=== PATIENT | male | born 1985 | race Caucasian/White ===

== ENCOUNTER 2019-12-22 15:57 | Emergency (ER) | payer SELFPAY ==
[2019-12-22 15:57] VITALS: BP 123/85; PULSE 84; RESP 18; TEMP 36.8; O2SAT 100
--- NOTE | 2019-12-22 16:02 | CT_ITS ---
WS: [id number] CT ABDOMEN PELVIS TECHNIQUE: Contrast-enhanced CT of the abdomen and pelvis with coronal and sagittal reformatted image s. CLINICAL INFORMATION: Abdominal Pain COMPARISON: Multiple prior CTs including 09/04/2018 and 07/31/2015 DLP: 600.[address] scans at [facility] use at least one of these dose optimization techniques: automat ed exposure control; mA and/or kV adjustment per patient size (includes targeted exams where dose is matched to clinical indication); or iterative reconstruction. FINDINGS: Mild diffuse fatty infiltration liver. Portal vein and splenic vein are patent. Normal gallbladder. P rior postoperative changes gastric variceal embolization. Lobulated spleen with splenic cleft is unch anged from multiple prior studies. Portal vein and splenic vein are patent. Pancreas appears normal. Normal renal parenchymal enhancement. No hydronephrosis. Normal caliber abdominal aorta. Normal sigmoid colon. Mild right colon and transverse colon constipation. No evidence of high-grade s mall or large bowel obstruction. No free fluid in the pelvis. Lung bases are well aerated. Notified Jessica Aguirre at 12/22/2019 4:[address]/CT abdomen pelvis w con* [id number] IMPRESSION: 1. Diffuse fatty infiltration of the liver. Normal appearing gallbladder. 2. Lobulated spleen with splenic cleft is unchanged from multiple prior examin ations. 3. Postoperative changes along the stomach from prior variceal embolization. 4. Normal renal parenchymal enhancement. No hydronephrosis. 5. Mild right colon and transverse colon fecal retention. No evidence of small or large bowel obstruction. 6. Normal caliber abdominal aorta. 7. No acute abdominal or pelvic findings
[2019-12-22] MEDS: iohexol 300 mg/mL 100 mL Btl IV (16:20)
[2019-12-22 16:29] VITALS: RESP 18; O2SAT 100
[2019-12-22 16:29] LABS: Basophils % 0.5 %; Eosinophils # 0.2 10^3/uL (0.0-0.8); Eosinophils % 2.7 %; Hematocrit 46.8 % (42.0-52.0); Hemoglobin 15.1 g/dL (11.7-16.6); Lymphocytes # 2.3 10^3/uL (0.8-4.8); Lymphocytes % 27.9 %; Mean Corpuscular HGB Conc 32.3 g/dL (30.0-36.0); Mean Corpuscular Hemoglobin 27.4 pg (28.0-34.0); Mean Corpuscular Volume 84.8 fL (80-94); Monocytes # 0.6 10^3/uL (0.2-0.9); Monocytes % 7.5 %; Neutrophils # 5.1 10^3/uL (1.8-7.7); Nucleated Red Blood Cells % 0 %; Platelet Count 261 10^3/cmm (130-400); Red Blood Count 5.52 10^6/uL (4.1-5.3); Red Cell Distribution Width 14.6 % (12.1-15.1); White Blood Count 8.3 10^3/uL (4.0-10.0)
[2019-12-22] MEDS: sodium chloride 0.9% 1,000 ML 100 ML IV (16:29)
[2019-12-22] MEDS: morphine 4 mg/mL SDV 1 mL IVP (16:29)
[2019-12-22] MEDS: ondansetron 2 mg/ML SDV 2 mL 4 MG IVP (16:30)
--- NOTE | 2019-12-22 16:45 | ED_ITS ---
Entered by Kiara Schumacher, acting as scribe for Jessica Aguirre Dec 22, 2019 15:57 HPI - Abdominal Pain General: Chief Complaint: Abdominal Pain Stated Complaint: lower abd pain Time Seen by Provider: 12/22/19 15:58 History of Present Illness: HPI narrative: Mr. Carlin is a nice 34-year-old male who comes in complaining of abdominal pain. He states the pain is been constant for the past 3 days and is located both the right and left lower quadrants. He denies any change in his bowel habits, dysuria, hematuria, or melena. He states he has not had symptoms like this in the past. 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 He denies any other fevers, back pain, chest pain, shortness of breath, generalized weakness or other complaints. Associated Symptoms: Denies chills, coffee ground emesis, constipation, GI cramping, diarrhea, dysuria, fever(s), hematuria, hematemesis, melena, nausea, syncope and vomiting Review of Systems General: Reports: other (negative unless marked) Const: Denies: fever, chills, body aches, fatigue, malaise or diaphoresis Eyes: Denies: change in vision or blurry vision ENMT: Denies: throat pain, painful swallowing, hoarseness, ear pain, ear discharge, Change in hearing or nasal discharge Card: Denies: chest pain, palpitations, irregular heart rhythm, syncope, pre- syncope, shortness of breath on exertion or shortness of breath when lying down Resp: Denies: shortness of breath, productive cough, non-productive cough, wheezing, coughing up blood or chest congestion GI: Denies: nausea, vomiting, vomiting blood, coffee grounds in vomit, diarrhea, constipation, cramping or black tarry stool : Denies: flank pain, difficulty urinating, painful urination, urinary frequency, urinary urgency, decreased urine ouput, urinary incontinence or blood in urine Musc: Denies: neck pain, back pain, extremity pain, extremity swelling, joint pain, joint swelling, joint warmth or joint stiffness Skin/Breast: Denies: rash, skin tenderness or yellow skin Neuro: Denies: headache, numbness in extremities, weakness in extremities, changes in sensation, lack of coordination, difficulty walking, dizziness, vertigo or confusion Endo: Denies: excessive thirst, tired all the time, cold intolerance, excessive sweating, flushing or hot flashes Christos/Lymph: Denies: easy bruising, easy bleeding, petechiae or enlarged lymph nodes All/Imm: Denies: hives, throat swelling, tongue swelling, facial swelling or acute wheezing PFSH ED PFSH: Social History Smoking and tobacco status: current every day smoker Physical Exam Const: COMMON NORMALS: no apparent distress, oriented x3, no limitations, healthy appearing and well nourished EXAM LIMITATIONS: no altered mental status GENERAL APPEARANCE: cooperative, well kempt and well developed ORIENTATION/CONSCIOUSNESS: Yes awake HENMT: COMMON NORMALS: normocephalic, head/scalp atraumatic, hearing grossly normal bilaterally, external ears normal, EAC's normal, external nose normal and moist oral mucous membranes HEAD & SCALP: normal to inspection, normocephalic and atraumatic FACE & SINUS: normal facial exam and face symmetric NOSE: external nose normal and nares normal EXTERNAL EAR: Yes external ears normal EXTERNAL AUDITORY CANAL: EAC's normal MOUTH: oral and palatal mucosa normal and tongue normal Eye: COMMON NORMALS: PERRL, EOMs intact bilaterally, conjunctivae normal and no scleral icterus GENERAL EYE: normal appearance of both eyes and normal light reflex CONJUNCTIVA: Yes conjunctivae normal SCLERA: sclerae normal CORNEA: Yes corneas normal PUPIL: Yes PERRL DIRECT OPHTHALMOSCOPY: Yes normal light reflex Neck/C-Spine: COMMON NORMALS: full ROM, no lymphadenopathy, supple, no meningeal signs and no JVD GENERAL: Yes normal visual inspection and Yes trachea midline CERVICAL SPINE: Yes cervical ROM normal Chest: COMMONS NORMALS: inspection of chest normal and palpation of chest normal Resp: COMMON NORMALS: normal respiratory effort, no retractions, no use of accessory muscles and clear to auscultation bilaterally EFFORT & INSPECTION: Yes able to speak in complete sentences AUSCULTATION: clear to auscultation bilaterally Cardio: COMMON NORMALS: no JVD, regular rate, regular rhythm, S1 normal heart sound, S2 normal heart sound, no gallops, no clicks, no murmurs and no rub JUGULAR VENOUS DISTENTION: no JVD RATE: regular rate RHYTHM: regular rhythm HEART SOUNDS: S1 normal and S2 normal GI: COMMON NORMALS: soft to palpation, non-tender, no hepatosplenomegaly and no masses INSPECTION: Yes normal to inspection PALPATION: Yes soft and Yes no hepatosplenomegaly : COMMON NORMALS: Yes no CVA tenderness BLADDER/KIDNEY EXAM: Yes no CVA tenderness Back/Pelvis: COMMON NORMALS: no CVA tenderness, thoracic and lumbar spine normal to inspection, no thoracic nor lumbar tenderness and thoraco-lumbar ROM normal Extremity: COMMON NORMALS: normal to inspection, full ROM, normal capillary refill, no joint enlargement, no clubbing, cyanosis or edema and no calf tenderness Neuro: COMMON NORMALS: oriented x3, CN's II-XII intact bilaterally, moves all extremities, no focal motor deficits and no sensory deficits noted MENINGEAL SIGNS: Yes no meningeal signs Psych: COMMON NORMALS: mental status grossly normal, thought process normal, cooperative, affect normal, speech normal and activity/motor behavior normal APPEARANCE: Yes well kempt SPEECH: Yes normal speech THOUGHT PROCESS: n ormal thought process Skin: COMMON NORMALS: no rashes or lesions noted, skin turgor normal, no jaundice, no petechiae and no mottling GENERAL SKIN EXAM: no rashes or lesions noted and turgor normal Course Vital Signs: Vital signs: Vital Signs Temperature 98.3 F 12/22/19 15:57 Pulse Rate 75 12/22/19 17:44 Respiratory Rate 16 12/22/19 17:44 Blood Pressure 122/79 12/22/19 17:44 Pulse Oximetry 99 12/22/19 17:44 MDM - Abdominal Pain MDM Narrative: Medical decision making narrative: Wilfrid is a 34-year-old male comes in complaining of abdominal pain. Is been present for 3 days and constant. His labs are unremarkable and CT is negative. He admits to occasional bright red blood in his stools patient refusing rectal exam or referral to a surgeon. He states the which is wants to go home if we cannot find anything wrong. I have encouraged him to return should his symptoms change or worsen and he agrees to do so. Patient has been warned and also welcome to return. Lab Data: Labs: Lab Results 12/22/19 12/22/19 12/22/19 Range/Units 16:15 16:15 17:03 WBC 8.3 (4.0-10.0) 10^3/ uL RBC 5.52 H (4.1-5.3) 10^6/u L Hgb 15.1 (11.7-16.6) g/dL Hct 46.8 (42.0-52.0) % MCV 84.8 (80-94) fL MCH 27.4 L (28.0-34.0) pg MCHC 32.3 (30.0-36.0) g/dL RDW 14.6 (12.1-15.1) % Plt Count 261 (130-400) 10^3/c mm MPV 10.0 (7.4-10.4) fL Neut % (Auto) 61.0 % Lymph % (Auto) 27.9 % [place] % (Auto) 7.5 % Eos % (Auto) 2.7 % Baso % (Auto) 0.5 % Neut # (Auto) 5.1 (1.8-7.7) 10^3/u L Lymph # (Auto) 2.3 (0.8-4.8) 10^3/u L [place] # (Auto) 0.6 (0.2-0.9) 10^3/u L Eos # (Auto) 0.2 (0.0-0.8) 10^3/u L Baso # (Auto) 0.0 (0.0-0.1) 10^3/u L Nucleated RBC % (a uto) 0 % Nucleated RBCs # 0.0 /100WBC Sodium 137 (136-145) mmol/L Potassium 4.2 (3.5-5.1) mmol/L Chloride 100 (98-107) mmol/L Carbon Dioxide 23 (22-29) mmol/L Anion Gap 18.2 (5-19) BUN 11 (6-20) mg/dL Creatinine 1.0 (0.7-1.2) mg/dL GFR Calculation 86.6 L (90-130) mL/min Glucose 91 (65-115) mg/dL Calcium 10.0 (8.5-10.5) mg/dL Total Bilirubin 0.7 (0.15-1.2) mg/dL AST 24 (0-40) U/L ALT 27 (0-41) U/L Alkaline Phosphata se 76 (40-130) IU/L Total Protein 7.8 (6.6-8.7) g/dL Albumin 4.6 (3.5-5.2) g/dL Globulin 3.2 (1.3-4.6) g/dL Lipase 16 (13-60) U/L Urine Color Dark yellow (Yellow) Urine Appearance Clear (CLEAR) Urine pH 6 (5-7) Ur Specific Gravit y 1.015 (1.005-1.030) Urine Protein 1+ H (Negative) Urine Glucose (UA) Norm (Normal) Urine Ketones 1+ H (Negative) Urine Blood Neg (Negative) Urine Nitrate Negative (Negative) Urine Bilirubin 1+ H (NEGATIVE) Urine Urobilinogen 1 H (Negative) mg/dL Ur Leukocyte Rashida ase Negative (Negative) Urine RBC Rare (0-2) /hpf Urine WBC 0-4 H (0-5) /hpf Ur Squamous Epith Cells Rare (0-5) Urine Bacteria 1+ H (NONE) Urine Mucus 3+ Imaging Data ^: CT Abd/Pel: Radiologist's impression: [place] [address] CT Scan Report Signed Patient: Wilfrid Carlin #: [id number] : 1985Acct#:[id number] Age/Sex: 34 / MADM Date: 12/22/19 Loc: ERRoom/Bed: Attending Dr: Ordering Provider/Ordering MD: Jessica Aguirre DO Date of Service: 12/22/19 Procedure(s): CT abdomen pelvis w con* [id number] Accession Number(s): [id number] Report Number: [id number] WS: [id number] CT ABDOMEN PELVIS TECHNIQUE: Contrast-enhanced CT of the abdomen and pelvis with coronal and sagittal reformatted images. CLINICAL INFORMATION: Abdominal Pain COMPARISON: Multiple prior CTs including 09/04/2018 and 07/31/2015 DLP: 600.[address] scans at [facility] use at least one of these dose optimization techniques: automated exposure control; mA and/or kV adjustment per patient size (includes targeted exams where dose is matched to clinical indication); or iterative reconstruction. FINDINGS: Mild diffuse fatty infiltration liver. Portal vein and splenic vein are patent. Normal gallbladder. Prior postoperative changes gastric variceal embolization. Lobulated spleen with splenic cleft is unchanged from multiple prior studies. Portal vein and splenic vein are patent. Pancreas appears normal. Normal renal parenchymal enhancement. No hydronephrosis. Normal caliber abdominal aorta. Normal sigmoid colon. Mild right colon and transverse colon constipation. No evidence of high-grade small or large bowel obstruction. No free fluid in the pelvis. Lung bases are well aerated. Notified Jessica Aguirre at 12/22/2019 4:[address]/CT abdomen pelvis w con* [id number] IMPRESSION: 1. Diffuse fatty infiltration of the liver. Normal appearing gallbladder. 2. Lobulated spleen with splenic cleft is unchanged from multiple prior examinations. 3. Postoperative changes along the stomach from prior variceal embolization. 4. Normal renal parenchymal enhancement. No hydronephrosis. 5. Mild right colon and transverse colon fecal retention. No evidence of small or large bowel obstruction. 6. Normal caliber abdominal aorta. 7. No acute abdominal or pelvic findings Dictated By:Lenard Greenberg MD Signed By:Lenard Greenberg MDSigned Date/Time:12/22/191651 DD/ Discharge Plan Discharge Patient Disposition: Home, Self-Care Clinical Impression: Abdominal pain Qualifiers: Abdominal location: generalized Qualified Code(s): R10.84 - Generalized abdominal pain Condition: Stable Prescriptions: No Action No Known Home Medications RF: 0 Discharge Orders: Discharge Order (Routine); Ordered 12/22/19 Ordered By: Jessica Aguirre Referrals: Miranda Infante FNP-C [Family Provider] - Discharge Diet: Advance as tolerated Discharge Activity: Increase activity as tolerated Patient Instructions: Abdominal Pain (ED) Activity Restrictions/Additional Instructions: Please return to the ER immediately for any of the signs or symptoms listed on your discharge instruction sheets, worsening/changing of your symptoms, you are not getting better as quickly as expected, or for ANY other cause or concerns. Discharge Date/Time: 12/22/19 17:46 Coding Level of Care Code ED Manager Ob for Chg Fwd Exam Comprehensive The documentation recorded by the Endy cross Valerie R, accurately reflects the service I personally performed and the decisions made by Carla toure Eli N Dec 22, 2019 15:57
[2019-12-22 16:58] LABS: Alanine Aminotransferase 27 U/L (0-41); Albumin Level 4.6 g/dL (3.5-5.2); Alkaline Phosphatase 76 IU/L (40-130); Anion Gap 18.2 (5-19); Aspartate Amino Transferase 24 U/L (0-40); Blood Urea Nitrogen 11 mg/dL (6-20); Carbon Dioxide 23 mmol/L (22-29); Chloride 100 mmol/L (98-107); Globulin 3.2 g/dL (1.3-4.6); Glomerular Filtration Rate 86.6 mL/min (90-130); Glucose 91 mg/dL (65-115); Lipase 16 U/L (13-60); Potassium 4.2 mmol/L (3.5-5.1); Sodium 137 mmol/L (136-145); Total Bilirubin 0.7 mg/dL (0.15-1.2); Total Protein 7.8 g/dL (6.6-8.7)
[2019-12-22 17:34] LABS: Bilirubin Urine 1+ (NEGATIVE); Blood Urine Neg (Negative); Glucose Urine UA Norm (Normal); Ketones Urine 1+ (Negative); Leukocyte Esterase Urine Negative (Negative); Nitrate Urine Negative (Negative); Protein Urine 1+ (Negative); RBC Urine RARE /hpf (0-2); Specific Gravity, Urine 1.015 (1.005-1.030); Squamous Epithelial Cell Urine RARE (0-5); Urine Appearance Clear (CLEAR); Urine Color Dark Yellow (Yellow); Urobilinogen Urine 1 mg/dL (Negative); WBC Urine 0-4 /hpf (0-5); pH Urine 6 (5-7)
[2019-12-22 17:35] LABS: Bacteria Urine 1+; Mucus Urine 3+
[2019-12-22] MEDS: ketorolac 30 mg/mL INJ 10 MG IVP (17:41)
[2019-12-22 17:44] VITALS: BP 122/79; PULSE 75; RESP 16; O2SAT 99
== END 2019-12-22 17:46 | disposition home or self-care (01) ==
PROVIDERS: Emergency Provider Emergency Medicine; Family Provider Nurse Practitioner Family
DX: R10.84 Generalized abdominal pain (principal); F17.210 Nicotine dependence, cigarettes, uncomplicated; K76.0 Fatty (change of) liver, not elsewhere classified
CPT/HCPCS: 12345; 74177; 80053; 81001; 83690; 85025; 96361; 96374; 96375; 99282; 99283; A9270; J1885; J2270; J2405; J7030; Q9967

== ENCOUNTER 2020-04-16 00:12 | Emergency (ER) | payer SELFPAY ==
[2020-04-16 00:13] VITALS: BP 136/81; PULSE 87; RESP 22; TEMP 37.1; O2SAT 97; BMI 23.7
--- NOTE | 2020-04-16 00:16 | ECG_ITS ---
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 Measurements Intervals [place] Rate: 61 P: 46 NC: 155 QRS: 90 QRSD: 117 T: 74 QT: 436 QTc: 439 Interpretive Statements SINUS RHYTHM WITH SINUS ARRHYTHMIA MODERATE INTRAVENTRICULAR CONDUCTION DELAY [110+ ms QRS DURATION] EARLY REPOLARIZATION [ST ELEVATION WITH NORMALLY INFLECTED T WAVE] Compared to ECG 08/05/2019 12:44:45 ST (T wave) deviation no longer present Electronically Signed On 04-16-2020 19:32:40 CDT by Star Saucedo M.D. [id number] f
--- NOTE | 2020-04-16 00:16 | XRR_ITS ---
PROCEDURE INFORMATION: Exam: XR Chest, 1 View Exam date and time: 04/16/2020 12:33 AM Age: 35 years old Clinical indication: Chest pain; Type not specified; Additional info: Cp TECHNIQUE: Imaging protocol: XR of the chest Views: 1 view. COMPARISON: CR Chest 1 [place] [id number] 08/05/2019 11:42 AM FINDINGS: Lungs: Unremarkable. No consolidation. Pleural space: Unremarkable. No pleural effusion. No pneumothorax. Heart/Mediastinum: Unremarkable. No cardiomegaly. Bones/joints: Unremarkable. XR/XR chest 1V portable [id number] IMPRESSION: No acute findings.
--- NOTE | 2020-04-16 00:17 | ED_ITS ---
HPI - Chest Pain General: Chief Complaint: Chest Pain Stated Complaint: Chest Pain Time Seen by Provider: 04/16/20 00:13 Source: patient and EMS Mode of arrival: EMS Limitations: no limitations History of Present Illness: HPI narrative: 35-year-old male who is been having chest pain he states this evening. Patient is also had episodes of vomiting is currently vomiting as well. He states the pain it went away earlier but is returned also has upper abdominal pain. States pain is sharp in nature and rates it a 6 out of 10. He has no history of heart disease. Denies any wo rsening or improving factors. MD complaint: chest pain Associated symptoms: Reports abdominal pain, nausea and vomiting; Deny dyspnea or fever(s) Review of Systems Const: Denies: fever(s), chills, body aches or change in appetite Eyes: Denies: blurry vision or eye discomfort ENMT: Denies: throat pain or dental pain Card: Reports: chest pain Resp: Denies: dyspnea GI: Reports: abdominal pain, nausea and vomiting : Denies: dysuria Musc: Denies: neck pain or back pain Skin/Breast: Denies: rash Neuro: Denies: headache(s) Psych: Denies: depression Christos/Lymph: Denies: easy bruising All/Imm: Denies: urticaria PFSH ED PFSH: Social History Smoking and tobacco status: current every day smoker Physical Exam Const: COMMON NORMALS: no acute distress, patient oriented x3 and healthy appearing HENMT: COMMON NORMALS: normocephalic and atraumatic HEAD & SCALP: normocephalic and atraumatic Eye: COMMON NORMALS: Equal, round and reactive pupils present and EOMs intact bilaterally PUPIL: Yes Equal, round and reactive pupils present Neck/C-Spine: COMMON NORMALS: full ROM and supple Chest: COMMONS NORMALS: normal inspection of the chest and normal palpation of entire chest wall Resp: COMMON NORMALS: normal respiratory effort, No retractions, No use of accessory muscles and clear to auscultation bilaterally AUSCULTATION: clear to auscultation bilaterally Cardio: COMMON NORMALS: regular rate, regular rhythm and No murmurs present (Cardio) RATE: regular rate RHYTHM: regular rhythm GI: COMMON NORMALS: Normal to inspection, nondistended, normoactive bowel sounds present, Soft to palpation, non-tender and no masses PALPATION: Yes Soft to palpation Extremity: COMMON NORMALS: normal to inspection and full ROM Neuro: COMMON NORMALS: patient oriented x3, moves all extremities and no focal motor deficits Psych: COMMON NORMALS: mental status grossly normal, Normal thought process present and cooperative THOUGHT PROCESS: Normal thought process present Skin: COMMON NORMALS: no rashes or lesions noted and no wounds GENERAL SKIN EXAM: no rashes or lesions noted Course Vital Signs: Vital signs: Vital Signs Temperature 98.0 F 04/16/20 02:22 Pulse Rate 56 L 04/16/20 02:22 Respiratory Rate 16 04/16/20 02:22 Blood Pressure 121/64 04/16/20 02:22 Pulse Oximetry 97 04/16/20 00:13 MDM - Chest Pain MDM Narrative: Medical decision making narrative: Wilfrid presents with chest pain along with vomiting. He feels much improved here in initial and repeat troponins are negative. Patient's x-ray and EKG are normal as well. He has no signs of pancreatitis or pulmonary embolism. Will prescribe him Zofran and he is stable for discharge. He is to return if worsening. He understands and agrees to plan. Lab Data: Labs: Lab Results 04/16/20 04/16/20 04/16/20 Range/Units 00:23 00:23 00:23 WBC 11.7 H (4.0-10.0) 10^3/ uL RBC 5.44 H (4.1-5.3) 10^6/u L Hgb 14.7 (11.7-16.6) g/dL Hct 46.4 (42.0-52.0) % MCV 85.3 (80-94) fL MCH 27.0 L (28.0-34.0) pg MCHC 31.7 (30.0-36.0) g/dL RDW 15.1 (12.1-15.1) % Plt Count 289 (130-400) 10^3/c mm MPV 10.0 (7.4-10.4) fL Neut % (Auto) 63.6 % Lymph % (Auto) 24.5 % [place] % (Auto) 8.3 % Eos % (Auto) 3.0 % Baso % (Auto) 0.4 % Neut # (Auto) 7.4 (1.8-7.7) 10^3/u L Lymph # (Auto) 2.9 (0.8-4.8) 10^3/u L [place] # (Auto) 1.0 H (0.2-0.9) 10^3/u L Eos # (Auto) 0.4 (0.0-0.8) 10^3/u L Baso # (Auto) 0.1 (0.0-0.1) 10^3/u L Nucleated RBC % (a uto) 0 % Nucleated RBCs # 0.0 /100WBC Sodium 143 (136-145) mmol/L Potassium 3.9 (3.5-5.1) mmol/L Chloride 106 (98-107) mmol/L Carbon Dioxide 22 (22-29) mmol/L Anion Gap 18.9 (5-19) BUN 8 (6-20) mg/dL Creatinine 1.0 (0.7-1.2) mg/dL GFR Calculation 86.1 L (90-130) mL/min Glucose 127 H (65-115) mg/dL Calculated Osmolal ity 293 (285-295) mOsm/k g Calcium 9.9 (8.5-10.5) mg/dL Total Bilirubin 0.5 (0.15-1.2) mg/dL AST 21 (0-40) U/L ALT 17 (0-41) U/L Alkaline Phosphata se 72 (40-130) IU/L Troponin T Baselin e 6 (0-15) ng/L Troponin T 120 Min [place] (0-15) ng/L Delta Troponin T (0-10) ABS# Total Protein 8.2 (6.6-8.7) g/dL Albumin 4.8 (3.5-5.2) g/dL Globulin 3.4 (1.3-4.6) g/dL Lipase 18 (13-60) U/L Urine Opiates Scre en (Negative) ng/mL Ur Barbiturates Sc reen (Negative) ng/mL Ur Amphetamines Sc reen (Negative) ng/mL U Benzodiazepines Scrn (Negative) ng/mL 04/16/20 04/16/20 Range/Units 02:03 02:11 WBC (4.0-10.0) 10^3/ uL RBC (4.1-5.3) 10^6/u L Hgb (11.7-16.6) g/dL Hct (42.0-52.0) % MCV (80-94) fL MCH (28.0-34.0) pg MCHC (30.0-36.0) g/dL RDW (12.1-15.1) % Plt Count (130-400) 10^3/c mm MPV (7.4-10.4) fL Neut % (Auto) % Lymph % (Auto) % [place] % (Auto) % Eos % (Auto) % Baso % (Auto) % Neut # (Auto) (1.8-7.7) 10^3/u L Lymph # (Auto) (0.8-4.8) 10^3/u L [place] # (Auto) (0.2-0.9) 10^3/u L Eos # (Auto) (0.0-0.8) 10^3/u L Baso # (Auto) (0.0-0.1) 10^3/u L Nucleated RBC % (a uto) % Nucleated RBCs # /100WBC Sodium (136-145) mmol/L Potassium (3.5-5.1) mmol/L Chloride (98-107) mmol/L Carbon Dioxide (22-29) mmol/L Anion Gap (5-19) BUN (6-20) mg/dL Creatinine (0.7-1.2) mg/dL GFR Calculation (90-130) mL/min Glucose (65-115) mg/dL Calculated Osmolal ity (285-295) mOsm/k g Calcium (8.5-10.5) mg/dL Total Bilirubin (0.15-1.2) mg/dL AST (0-40) U/L ALT (0-41) U/L Alkaline Phosphata se (40-130) IU/L Troponin T Baselin e (0-15) ng/L Troponin T 120 Min [place] 6.00 (0-15) ng/L Delta Troponin T 0 (0-10) ABS# Total Protein (6.6-8.7) g/dL Albumin (3.5-5.2) g/dL Globulin (1.3-4.6) g/dL Lipase (13-60) U/L Urine Opiates Scre en Negative (Negative) ng/mL Ur Barbiturates Sc reen Negative (Negative) ng/mL Ur Amphetamines Sc reen Positive H (Negative) ng/mL U Benzodiazepines Scrn Positive H (Negative) ng/mL Imaging Data^: CXR: Attestation: I personally reviewed and interpreted this imaging study as follow s: My impression: No acute abnormality EKG Data^: EKG 1: Attestation: I personally reviewed and interpreted this EKG as follows: EKG interpretation date: 04/16/20 EKG interpretation time: 01:09 Interpretation: Normal sinus rhythm heart rate [address] or T wave abnormalities early repolarization is noted QRS 117 QTc 438 Discharge Plan Discharge Patient Disposition: Home, Self-Care Clinical Impression: Chest pain Qualifiers: Chest pain type: unspecified Qualified Code(s): R07.9 - Chest pain, unspecified Vomiting Qualifiers: Vomiting type: unspecified Vomiting Intractability: non-intractable Nausea presence: with nausea Qualified Code(s): R11.2 - Nausea with vomiting, unspecified Condition: Stable Prescriptions: New ondansetron 4 mg tablet,disintegrating 4 mg PO Q6H PRN (Reason: nausea and vomiting) Qty: 14 RF: 0 Discharge Orders: Discharge Order (Routine); Ordered 04/16/20 Ordered By: Mode Ramos Referrals: Miranda Infante FNP-C [Primary Care Provider] - 1-3 days Discharge Diet: Advance as tolerated Discharge Activity: Resume usual activity Patient Instructions: Chest Pain (ED) Discharge Date/Time: 04/16/20 02:50 Coding Level of Care Code ED Bi Report Developer for Chg Fwd Exam Comprehensive
[2020-04-16 00:30] LABS: Basophils # 0.1 10^3/uL (0.0-0.1); Basophils % 0.4 %; Eosinophils # 0.4 10^3/uL (0.0-0.8); Hematocrit 46.4 % (42.0-52.0); Hemoglobin 14.7 g/dL (11.7-16.6); Lymphocytes # 2.9 10^3/uL (0.8-4.8); Lymphocytes % 24.5 %; Mean Corpuscular HGB Conc 31.7 g/dL (30.0-36.0); Mean Corpuscular Volume 85.3 fL (80-94); Monocytes % 8.3 %; Neutrophils # 7.4 10^3/uL (1.8-7.7); Neutrophils % 63.6 %; Nucleated Red Blood Cells % 0 %; Platelet Count 289 10^3/cmm (130-400); Red Blood Count 5.44 10^6/uL (4.1-5.3); Red Cell Distribution Width 15.1 % (12.1-15.1); White Blood Count 11.7 10^3/uL (4.0-10.0)
[2020-04-16] MEDS: LORazepam 2 mg/mL INJ 1 mL IVP (00:49)
[2020-04-16] MEDS: ondansetron 2 mg/ML SDV 2 mL 4 MG IVP (00:52)
[2020-04-16 00:57] VITALS: BP 124/85; PULSE 80; RESP 18; TEMP 36.3
[2020-04-16 00:58] LABS: Alanine Aminotransferase 17 U/L (0-41); Albumin Level 4.8 g/dL (3.5-5.2); Alkaline Phosphatase 72 IU/L (40-130); Anion Gap 18.9 (5-19); Aspartate Amino Transferase 21 U/L (0-40); Blood Urea Nitrogen 8 mg/dL (6-20); Calcium 9.9 mg/dL (8.5-10.5); Carbon Dioxide 22 mmol/L (22-29); Chloride 106 mmol/L (98-107); Globulin 3.4 g/dL (1.3-4.6); Glomerular Filtration Rate 86.1 mL/min (90-130); Glucose 127 mg/dL (65-115); Lipase 18 U/L (13-60); Osmolality Calculated 293 mOsm/kg (285-295); Potassium 3.9 mmol/L (3.5-5.1); Sodium 143 mmol/L (136-145); Total Bilirubin 0.5 mg/dL (0.15-1.2); Total Protein 8.2 g/dL (6.6-8.7)
[2020-04-16 00:59] LABS: Troponin(5th) Baseline 6 ng/L (0-15)
[2020-04-16] MEDS: sodium chloride 0.9% 1,000 ML 999 ML IV (01:06)
[2020-04-16 01:27] VITALS: BP 117/54; PULSE 80; RESP 16
[2020-04-16 02:22] VITALS: BP 121/64; PULSE 56; RESP 16; TEMP 36.7
[2020-04-16 02:36] LABS: Troponin 5 2HR Delta 0 ABS# (0-10)
[2020-04-16 02:45] LABS: Amphetamines Screen Urine Positive (Negative); Barbiturates Screen Urine Negative (Negative); Benzodiazepines Screen Urine Positive (Negative); Opiate Screen Urine Negative (Negative)
[2020-04-16 03:06] LABS: Cocaine Screen Urine Negative (Negative); PCP Screen Urine Negative (Negative); THC Screen Urine Positive (Negative)
== END 2020-04-16 02:50 | disposition home or self-care (01) ==
PROVIDERS: Emergency Provider Emergency Medicine; PCP Nurse Practitioner Family
DX: R07.9 Chest pain, unspecified (principal); R11.2 Nausea with vomiting, unspecified; F17.210 Nicotine dependence, cigarettes, uncomplicated
CPT/HCPCS: 12345; 36415; 71045; 80053; 80306; 83690; 84484; 85025; 93005; 96361; 96374; 96375; 99283; 99284; J2060; J2405; J7030

== ENCOUNTER 2020-11-08 09:10 | Emergency (ER) | payer SELFPAY ==
[2020-11-08 09:11] VITALS: BP 160/111; PULSE 83; RESP 16; TEMP 36.5; O2SAT 99; BMI 21.1
--- NOTE | 2020-11-08 09:28 | CT_ITS ---
WS: [id number] CT ABDOMEN AND PELVIS WITH CONTRAST HISTORY: Abdominal pain TECHNIQUE: Imaging performed of the abdomen and pelvis with IV contrast. Single phase imaging of the abdomen. Coronal and sagittal reformats are submitted. All CT scans at [facility] use at least one of these dose optimization techniques: automated exposure control; mA and/or kV adjustment per patient size (includes targeted exams where dose is matched to clinical indication); or iterativ e reconstruction. IV CONTRAST: Omnipaque 300; 95 mL IV. Oral contrast: No DLP: 361.92 mGy.cm COMPARISON: 12/22/2019 Lower thorax: Lung bases are clear. Heart is normal size. No hiatal hernia. Liver/biliary system: Normal size liver. Hepatic steatosis along the falciform ligament. No bile duct dilatation. Gallbladder: Normal. No gallstones or wall thickening. No pericholecystic fluid. Pancreas: Pancreas is poorly visualized. Very little fat within the mesentery. No definite evidence f or pancreatitis by CT. Spleen: Again noted is a splenic cleft. No interval change in appearance of the spleen. Adrenal glands: Normal. Right kidney: Normal. Left kidney: Normal. Aorta: Normal. Postsurgical clips are noted within the LEFT upper abdomen. May be from prior embolization. Lymphadenopathy: None. Free fluid: None. GI tract: Moderate constipation. No obstruction. The appendix is not directly visualized. No secondar y findings of appendicitis. Abdominal wall: Unremarkable abdominal wall. No hernia. Pelvis: Normal. Bones: Unremarkable. CT/CT abdomen pelvis w con* [id number] IMPRESSION: 1. Diffuse constipation. 2. No ascites. No acute abdominal process identified.
--- NOTE | 2020-11-08 09:28 | ECG_ITS ---
[facility] Test Date: 2020-11-08 Pat Name: Wilfrid Carlin Department: Room: Gender: Male Chief Of Party: : 1985 Requested By: Jn Rivera Order Number: [id number] Adalgisa MD: Prasad Brock M.D. Measurements Intervals [place] Rate: 67 P: 36 ID: 140 QRS: 96 QRSD: 122 T: 75 QT: 417 QTc: 443 Interpretive Statements SINUS RHYTHM BORDERLINE RIGHT AXIS DEVIATION [QRS AXIS > 90] MODERATE INTRAVENTRICULAR CONDUCTION DELAY [110+ ms QRS DURATION] Compared to ECG 04/16/2020 01:09:45 Sinus arrhythmia no longer present Early repolarization no longer present Electronically Signed On 11-08-2020 19:11:40 GREASE MAKER by Prasad Brock M.D. [id number]
--- NOTE | 2020-11-08 09:28 | XR_ITS ---
WS: [id number] Portable AP upright chest, 11/08/2020 Clinical Data: dyspnea/cough Comparison: Portable chest, 04/16/2020. Findings: No nodules, masses or effusions are seen. The heart is normal. The pulmonary vascularity is not increased. No pneumonia or pneumothorax is seen. The patient is had surgery in the left upper qu adrant. XR/XR chest 1V portable [id number] Impression: Negative chest.
[2020-11-08 09:30] VITALS: O2SAT 99
--- NOTE | 2020-11-08 09:34 | W.ED.ABDPA2 ---
HPI - Abdominal Pain General: Chief Complaint: Abdominal Pain Stated Complaint: LOWER ABD PAIN, VOMITING Time Seen by Provider: 11/08/20 09:15 History of Present Illness: HPI narrative: 35 yo mle present with abd pain that started 4 days anne-marie. he has had some vomitting. EMS reports 4 episodes of bilous vomitting enroute. Pt ws given fentanyl and promethezine enroute and is moderately sedated. Patient denies any fever sweats or chills denies any dysuria urgency or frequency. Denies hematochezia melena hematemesis or coffee-ground emesis. MD elicited complaint: abdominal pain Pertinent past history: constipation Onset (ago): day(s) (3-4) Pain Consistency: constant Location: Diffuse Severity: moderate Quality: cramping Radiation: none Migration to: no migration Exacerbating factors: nothing Relieving factors: nothing Associated Symptoms: Reports constipation, GI cramping, nausea, poor appetite and vomiting; Denies change in bowel habits, change in stool character, chills, coffee ground emesis, diarrhea, dyspepsia, dysuria, excessive flatus, fever(s), heartburn, hematochezia, hematuria, hematemesis, fecal incontinence, loose stools, melena and syncope Review of Systems Const: Denies: fever(s) or chills ENMT: Denies: throat pain, ear or mastoid pain, nasal discharge or nasal congestion Card: Denies: syncope Resp: Denies: dyspnea, productive cough or non-productive cough GI: Reports: nausea, vomiting, constipation and GI cramping; Denies: hematemesis, coffee ground emesis, heartburn, diarrhea, excessive flatus, fecal incontinence, change in bowel habits, change in stool character, hematochezia or melena : Denies: dysuria or hematuria Skin/Breast: Denies: rash or pruritus PFSH ED PFSH: Social History Smoking and tobacco status: current every day smoker Physical Exam Const: COMMON NORMALS: no acute distress GENERAL APPEARANCE: cooperative and comfortable ORIENTATION/CONSCIOUSNESS: Yes awake, Yes oriented to person, Yes oriented to place and Yes oriented to time HENMT: COMMON NORMALS: normocephalic, atraumatic and hearing grossly normal bilaterally HEAD & SCALP: normocephalic and atraumatic Neck/C-Spine: COMMON NORMALS: no JVD Resp: COMMON NORMALS: normal respiratory effort, No retractions, No use of accessory muscles and clear to auscultation bilaterally AUSCULTATION: clear to auscultation bilaterally Cardio: COMMON NORMALS: no JVD, regular rate, regular rhythm and No murmurs present (Cardio) RATE: regular rate RHYTHM: regular rhythm GI: COMMON NORMALS: No hepatosplenomegaly present AUSCULTATION: Yes normoactive bowel sounds PALPATION: Yes Tenderness to palpation present (GI) (Diffuse), No Guarding due to palpation present (GI) and Yes No hepatosplenomegaly present Extremity: COMMON NORMALS: normal to inspection, capillary refill normal, no clubbing, cyanosis or edema, no calf tenderness and no pedal edema Neuro: SENSORIUM/ORIENTATION: Yes oriented to person, Yes oriented to place and Yes oriented to time Skin: COMMON NORMALS: no rashes or lesions noted GENERAL SKIN EXAM: no rashes or lesions noted Course Vital Signs: Vital signs: Vital Signs Temperature 97.7 F 11/08/20 09:11 Pulse Rate 84 11/08/20 11:23 Respiratory Rate 16 11/08/20 09:11 Blood Pressure 151/110 11/08/20 11:23 Pulse Oximetry 98 11/08/20 11:23 MDM - Abdominal Pain MDM Narrative: Medical decision making narrative: Patient difficult to assess. When he first came in he was extremely sedated from the fentanyl and promethazine received in route. He did not answer many questions and went back to the room a couple of x2 discussed with him. Each time myself or the nurse went to the room we had to awaken him. When awakened he would complain of increased pain asking for more pain medications. Work-up is unremarkable other than very slight elevation in white count and a slight elevation in BUN. Patient is given fluids. He denies chronic use review Lab Data: Labs: Lab Results 11/08/20 11/08/20 11/08/20 Range/Units 09:49 09:49 09:49 WBC 13.2 H (4.0-10.0) 10^3/ uL RBC 5.83 H (4.1-5.3) 10^6/u L Hgb 16.1 (11.7-16.6) g/dL Hct 48.6 (42.0-52.0) % MCV 83.4 (80-94) fL MCH 27.6 L (28.0-34.0) pg MCHC 33.1 (30.0-36.0) g/dL RDW 14.0 (12.1-15.1) % Plt Count 329 (130-400) 10^3/c mm MPV 9.4 (7.4-10.4) fL Neut % (Auto) 75.9 % Lymph % (Auto) 14.7 % [place] % (Auto) 8.6 % Eos % (Auto) 0.2 % Baso % (Auto) 0.4 % Neut # (Auto) 10.03 H (1.8-7.7) 10^3/u L Lymph # (Auto) 1.9 (0.8-4.8) 10^3/u L [place] # (Auto) 1.1 H (0.2-0.9) 10^3/u L Eos # (Auto) 0.0 (0.0-0.8) 10^3/u L Baso # (Auto) 0.1 (0.0-0.1) 10^3/u L Nucleated RBC % (a uto) 0 % Nucleated RBCs # 0.0 /100WBC Specimen Type Sample Site ABG pH (7.35-7.45) ABG pCO2 (35-45) mmHg ABG pO2 (80.0-100.0) mmH g ABG HCO3 (22-26) mmol/L ABG O2 Saturation ABG Base Excess (-2.0-2.0) mmol/ L Fam Test A-a O2 Gradient (5-10) mmHg Hematocrit (42-52) % Hgb O2 Saturation (95-100) % Carboxyhemoglobin (0.4-20.1) %THgb Methemoglobin (0.4-1.5) % Total Hemoglobin (14-18) g/dL Ionized Calcium (1.1-1.4) mmol/L O2 Delivery Device Heater Planer Operator ID Sodium 138 (136-145) mmol/L Potassium 3.6 (3.5-5.1) mmol/L Chloride 100 (98-107) mmol/L Carbon Dioxide 26 (22-29) mmol/L Anion Gap 15.6 (5-19) BUN 22 H (6-20) mg/dL Creatinine 1.3 H (0.7-1.2) mg/dL GFR Calculation 63.6 L (90-130) mL/min Glucose 125 H (65-115) mg/dL Calculated Osmolal ity 291 (285-295) mOsm/k g Lactic Acid 1.7 (0.5-2.2) mmol/L Calcium 8.8 (8.5-10.5) mg/dL Total Bilirubin 0.7 (0.15-1.2) mg/dL AST 16 (0-40) U/L ALT 15 (0-41) U/L Alkaline Phosphata se 75 (40-130) IU/L Creatine Kinase 181 (39-308) U/L Total Protein 7.6 (6.6-8.7) g/dL Albumin 4.5 (3.5-5.2) g/dL Globulin 3.1 (1.3-4.6) g/dL Lipase 13 (13-60) U/L Urine Color (Yellow) Urine Appearance (CLEAR) Urine pH (5-7) Ur Specific Gravit y (1.005-1.030) Urine Protein (Negative) Urine Glucose (UA) (Normal) Urine Ketones (Negative) Urine Blood (Negative) Urine Nitrate (Negative) Urine Bilirubin (Negative) Urine Urobilinogen (Negative) mg/dL Ur Leukocyte Rashida ase (Negative) Urine RBC (0-2) /hpf Urine WBC (0-5) /hpf Ur Squamous Epith Cells (0-5) /hpf Amorphous Sediment Urine Bacteria (NONE) /hpf Hyaline Casts /lpf 11/08/20 11/08/20 Range/Units 09:57 12:14 WBC (4.0-10.0) 10^3/ uL RBC (4.1-5.3) 10^6/u L Hgb (11.7-16.6) g/dL Hct (42.0-52.0) % MCV (80-94) fL MCH (28.0-34.0) pg MCHC (30.0-36.0) g/dL RDW (12.1-15.1) % Plt Count (130-400) 10^3/c mm MPV (7.4-10.4) fL Neut % (Auto) % Lymph % (Auto) % [place] % (Auto) % Eos % (Auto) % Baso % (Auto) % Neut # (Auto) (1.8-7.7) 10^3/u L Lymph # (Auto) (0.8-4.8) 10^3/u L [place] # (Auto) (0.2-0.9) 10^3/u L Eos # (Auto) (0.0-0.8) 10^3/u L Baso # (Auto) (0.0-0.1) 10^3/u L Nucleated RBC % (a uto) % Nucleated RBCs # /100WBC Specimen Type Arterial Sample Site Radial, right ABG pH 7.41 (7.35-7.45) ABG pCO2 41.7 (35-45) mmHg ABG pO2 93.7 (80.0-100.0) mmH g ABG HCO3 26.3 H (22-26) mmol/L ABG O2 Saturation 97.5 ABG Base Excess 1.4 (-2.0-2.0) mmol/ L Fam Test Pos A-a O2 Gradient 0.6 L (5-10) mmHg Hematocrit 53.9 H (42-52) % Hgb O2 Saturation 94.9 L (95-100) % Carboxyhemoglobin 2.2 (0.4-20.1) %THgb Methemoglobin 0.5 (0.4-1.5) % Total Hemoglobin 17.6 (14-18) g/dL Ionized Calcium 1.2 (1.1-1.4) mmol/L O2 Delivery Device Room air Heater Planer Operator ID [id number] Sodium 138.0 (136-145) mmol/L Potassium 3.7 (3.5-5.1) mmol/L Chloride (98-107) mmol/L Carbon Dioxide (22-29) mmol/L Anion Gap (5-19) BUN (6-20) mg/dL Creatinine (0.7-1.2) mg/dL GFR Calculation (90-130) mL/min Glucose 127.0 H (65-115) mg/dL Calculated Osmolal ity (285-295) mOsm/k g Lactic Acid (0.5-2.2) mmol/L Calcium (8.5-10.5) mg/dL Total Bilirubin (0.15-1.2) mg/dL AST (0-40) U/L ALT (0-41) U/L Alkaline Phosphata se (40-130) IU/L Creatine Kinase (39-308) U/L Total Protein (6.6-8.7) g/dL Albumin (3.5-5.2) g/dL Globulin (1.3-4.6) g/dL Lipase (13-60) U/L Urine Color Yellow (Yellow) Urine Appearance Clear (CLEAR) Urine pH 5 (5-7) Ur Specific Gravit y 1.015 (1.005-1.030) Urine Protein 1+ H (Negative) Urine Glucose (UA) Norm (Normal) Urine Ketones Negative (Negative) Urine Blood Neg (Negative) Urine Nitrate Negative (Negative) Urine Bilirubin 1+ H (Negative) Urine Urobilinogen 1 H (Negative) mg/dL Ur Leukocyte Rashida ase Negative (Negative) Urine RBC None (0-2) /hpf Urine WBC 0-4 H (0-5) /hpf Ur Squamous Epith Cells 0-4 H (0-5) /hpf Amorphous Sediment Not Reportable Urine Bacteria Trace (NONE) /hpf Hyaline Casts 5-10 H /lpf Discharge Plan Discharge Patient Disposition: Home Clinical Impression: Constipation Condition: Stable Prescriptions: New magnesium citrate Solution 148 ml PO BID PRN (Reason: constipation) Qty: 296 RF: 0 ondansetron HCl [Zofran] 4 mg tablet 4 mg PO Q6H PRN (Reason: nausea and vomiting) Qty: 20 RF: 0 Discharge Orders: Discharge ED (Routine); Ordered 11/08/20 Ordered By: Jn Horan Discharge Diet: Clear Liquid Discharge Activity: Increase activity as tolerated Activity Restrictions/Additional Instructions: Clear liquid diet for 24 to 48 hours. Magnesium citrate to relieve the constipation ondansetron as needed for nausea. Coding Level of Care Code ED Pattern Puncher for Rafiq Montes
[2020-11-08 09:52] VITALS: BP 146/105; PULSE 83; O2SAT 98
[2020-11-08 09:55] LABS: Basophils # 0.1 10^3/uL (0.0-0.1); Basophils % 0.4 %; Eosinophils % 0.2 %; Hematocrit 48.6 % (42.0-52.0); Hemoglobin 16.1 g/dL (11.7-16.6); Lymphocytes # 1.9 10^3/uL (0.8-4.8); Lymphocytes % 14.7 %; Mean Corpuscular HGB Conc 33.1 g/dL (30.0-36.0); Mean Corpuscular Hemoglobin 27.6 pg (28.0-34.0); Mean Corpuscular Volume 83.4 fL (80-94); Mean Platelet Volume 9.4 fL (7.4-10.4); Monocytes # 1.1 10^3/uL (0.2-0.9); Monocytes % 8.6 %; Neutrophils # 10.03 10^3/uL (1.8-7.7); Neutrophils % 75.9 %; Nucleated Red Blood Cells % 0 %; Platelet Count 329 10^3/cmm (130-400); Red Blood Count 5.83 10^6/uL (4.1-5.3); White Blood Count 13.2 10^3/uL (4.0-10.0)
[2020-11-08 10:03] LABS: ABG PCO2 41.7 mmHg (35-45); ABG PH Result 7.41 (7.35-7.45); Alveolar-Arterial Oxygen Gradi 0.6 mmHg (5-10); Arterial Blood Gas Hematocrit 53.9 % (42-52); Base Excess ABG 1.4 mmol/L (-2.0-2.0); Blood Gas Allen Test Pos; Blood Gas Sample Site Radial, right; Blood Gas Sample Type Arterial; Carboxyhemoglobin 2.2 %THgb (0.4-20.1); HCO3 ABG 26.3 mmol/L (22-26); HGB O2 Sat 94.9 % (95-100); Ionized Calcium Level - ABG 1.2 mmol/L (1.1-1.4); Methemoglobin 0.5 % (0.4-1.5); Oxygen Device ROOM AIR; Oxygen Saturation ABG 97.5; PO2 ABG 93.7 mmHg (80.0-100.0); Potassium Level - ABG 3.7 mmol/L (3.5-5.0); Total Hemoglobin 17.6 g/dL (14-18)
[2020-11-08 10:17] LABS: Alanine Aminotransferase 15 U/L (0-41); Albumin Level 4.5 g/dL (3.5-5.2); Alkaline Phosphatase 75 IU/L (40-130); Anion Gap 15.6 (5-19); Aspartate Amino Transferase 16 U/L (0-40); Blood Urea Nitrogen 22 mg/dL (6-20); Calcium 8.8 mg/dL (8.5-10.5); Carbon Dioxide 26 mmol/L (22-29); Chloride 100 mmol/L (98-107); Creatine Phosphokinase 181 U/L (39-308); Globulin 3.1 g/dL (1.3-4.6); Glomerular Filtration Rate 63.6 mL/min (90-130); Glucose 125 mg/dL (65-115); Lipase 13 U/L (13-60); Osmolality Calculated 291 mOsm/kg (285-295); Potassium 3.6 mmol/L (3.5-5.1); Sodium 138 mmol/L (136-145); Total Bilirubin 0.7 mg/dL (0.15-1.2); Total Protein 7.6 g/dL (6.6-8.7)
[2020-11-08] MEDS: iohexol 300 mg/mL 100 mL Btl IV (10:18)
[2020-11-08 10:19] LABS: Lactic Sepsis W/Reflex 1.7 mmol/L (0.5-2.2)
[2020-11-08] MEDS: sodium chloride 0.9% 1,000 ML 999 ML IV ×2 (11:22→13:12)
[2020-11-08] MEDS: ondansetron 2 mg/ML SDV 2 mL 4 MG IVP (11:22)
[2020-11-08 11:23] VITALS: BP 151/110; PULSE 84; O2SAT 98
[2020-11-08 12:24] LABS: Add Urine Microscopic? YES; Bilirubin Urine 1+ (Negative); Blood Urine Neg (Negative); Glucose Urine UA Norm (Normal); Ketones Urine Negative (Negative); Leukocyte Esterase Urine Negative (Negative); Nitrate Urine Negative (Negative); Protein Urine 1+ (Negative); Specific Gravity, Urine 1.015 (1.005-1.030); Urine Appearance Clear (CLEAR); Urine Color Yellow (Yellow); Urobilinogen Urine 1 mg/dL (Negative); pH Urine 5 (5-7)
[2020-11-08 12:44] LABS: Bacteria Urine TRACE /hpf; Squamous Epithelial Cell Urine 0-4 /hpf (0-5); WBC Urine 0-4 /hpf (0-5)
[2020-11-08 12:45] LABS: Add Urine Culture? No
[2020-11-08] MEDS: haloperidol inj 5 mg/mL INJ 1 mL IM (13:12)
[2020-11-08 13:13] VITALS: BP 135/98; PULSE 74; O2SAT 99
[2020-11-08 13:50] VITALS: BP 154/87; PULSE 81; O2SAT 100
== END 2020-11-08 13:50 | disposition home or self-care (01) ==
PROVIDERS: Emergency Provider Family Medicine
DX: K59.00 Constipation, unspecified (principal); F17.210 Nicotine dependence, cigarettes, uncomplicated
CPT/HCPCS: 12345; 36415; 36600; 71045; 74177; 80051; 80053; 81001; 82330; 82550; 82805; 83605; 83690; 85025; 93005; 96365; 96366; 96372; 96375; 99283; 99284; J1630; J2405; J7030; Q9967

== ENCOUNTER 2021-08-31 08:01 | Emergency (ER) | payer SELFPAY ==
[2021-08-31 08:17] VITALS: BP 141/93; PULSE 74; RESP 15; O2SAT 98; BMI 22.5
--- NOTE | 2021-08-31 08:23 | W.ED.GENADLT ---
HPI - General Adult General: Chief complaint: General Medical Stated complaint: DEHYDRATED/N,V/BLOODY STOOL/CP Time Seen by Provider: 08/31/21 08:04 History of Present Illness: HPI narrative: Patient is a 36-year-old male comes to the ED with weakness, nausea and vomiting. Symptoms have been going on for approximately 1 week. He has had episodes similar to this in the past and no doctors been able to figure out what is going on. For the past week he has not been able to keep any food or fluids down. Says he has had some periumbilical/epigastric pain, but here in the ED he does not have any abdominal pain. He states he feels dehydrated and weak. He endorses having some diarrhea with some red blood noted, especially when he wipes. He admits to having a history of hemorrhoids and has had this small amount of red blood during bowel movements before. Patient also endorses having a history of acid reflux and he was taking famotidine daily to treat that. He recently just got off the famotidine approximately a couple weeks ago. Associated symptoms: Reports nausea and vomiting; Deny chest pain, dyspnea, headache(s), rash or palpitations Review of Systems Const: Reports: fatigue (Generalized weakness); Denies: fever(s) or chills Eyes: Denies: change in vision or eye discomfort ENMT: Denies: throat pain, odynophagia, nasal discharge or nasal congestion Card: Denies: chest pain, palpitations, edema, swelling of feet/ankles, dyspnea on exertion or orthopnea Resp: Denies: dyspnea, productive cough or non-productive cough GI: Reports: nausea, vomiting, heartburn and diarrhea; Denies: abdominal pain, constipation or hematochezia : Denies: flank pain, difficulty urinating, dysuria or hematuria Musc: Denies: neck pain, back pain or extremity swelling Skin/Breast: Denies: rash or new lesions Neuro: Denies: headache(s), numbness in extremities or weakness in extremities PFS ED PFSH: Social History Smoking and tobacco status: current every day smoker Alcohol intake: current Physical Exam Const: COMMON NORMALS: patient oriented x3 and alert GENERAL APPEARANCE: cooperative, comfortable and lethargic (Patient appears a little lethargic/sleepy) ORIENTATION/CONSCIOUSNESS: Yes lethargic (Patient appears a little lethargic/sleepy) HENMT: COMMON NORMALS: normocephalic HEAD & SCALP: normocephalic MOUTH: moist mucous membranes abnormal Details: parched THROAT: posterior oropharynx normal and uvula midline Eye: COMMON NORMALS: Equal, round and reactive pupils present PUPIL: Yes Equal, round and reactive pupils present Neck/C-Spine: COMMON NORMALS: supple GENERAL: Yes normal visual inspection Resp: COMMON NORMALS: normal respiratory effort, No retractions, No use of accessory muscles and clear to auscultation bilaterally AUSCULTATION: clear to auscultation bilaterally Cardio: COMMON NORMALS: regular rate, regular rhythm, S1 normal heart sound present, S2 normal heart sound present, No gallops present (Cardio), No clicks present (Cardio), No murmurs present (Cardio) and Peripheral pulses 2+ throughout RATE: regular rate RHYTHM: regular rhythm HEART SOUNDS: S1 normal heart sound present and S2 normal heart sound present PERIPHERAL PULSES: Peripheral pulses 2+ throughout GI: COMMON NORMALS: Normal to inspection, nondistended, normoactive bowel sounds present, Soft to palpation and no masses PALPATION: Yes Soft to palpation and Yes Tenderness to palpation present (GI) Details: other (Periumbilical and epigastric region tenderness.) : COMMON NORMALS: Yes no CVA tenderness BLADDER/KIDNEY EXAM: Yes no CVA tenderness Back/Pelvis: COMMON NORMALS: no CVA tenderness Extremity: COMMON NORMALS: normal to inspection Neuro: COMMON NORMALS: patient oriented x3 and moves all extremities SENSORIUM/ORIENTATION: Yes alert and Yes lethargic (Patient appears a little lethargic/sleepy) Skin: GENERAL SKIN EXAM: dry skin Course Vital Signs: Vital signs: Vital Signs Pulse Rate 77 08/31/21 08:38 Respiratory Rate 14 08/31/21 12:57 Blood Pressure 141/93 08/31/21 08:38 Pulse Oximetry 98 08/31/21 08:38 MDM - General Adult MDM Narrative: Medical decision making narrative: Patient is a 36-year-old male comes to the ED with acute nausea and vomiting and abdominal pain. Abdominal pain is located in the periumbilical and epigastric region. Here in the ED is abdominal pain is mild and he says he has been having acute nausea and vomiting for the past week. He has been unable to keep any food or fluids down. Vitals are stable. During exam he has some periumbilical and epigastric tenderness along with dry oral mucous membranes. Labs were unremarkable. CT of abdomen pelvis showed no acute findings, but noted moderate amount of stool. Patient was given 2 L of IV fluids, Zofran and some IV pain meds and GI cocktail to help with symptoms. His symptoms improved and he was able to tolerate p.o. fluids. Patient was diagnosed with dehydration and acid reflux disease. He was discharged home with a prescription for Reglan, pantoprazole and hydrocodone 5/325 mg 8 tablets to help with pain. He was instructed to start with a clear liquid diet and then to advance diet as tolerated. Patient was wanting to be referred to a PCP so he can get established with a primary. Put a referral in with case management for patient to be set up with the PCP. Return ED precautions given. I told patient foster care case manager will contact them in the next couple days to set up an appoint with PCP. Patient understood agree with plan. Lab Data: Attestation: I reviewed the patient's lab results. Labs: Lab Results 08/31/21 08/31/21 08/31/21 08:34 09:43 09:43 WBC 11.9 10^3/uL H 10 ^3/uL (4.0-10.0) RBC 5.83 10^6/uL H 10 ^6/uL (4.1-5.3) Hgb 15.4 g/dL g/dL (11.7-16.6) Hct 48.2 % % (42.0-52.0) MCV 82.7 fl fl (80-94) MCH 26.4 pg L pg (28.0-34.0) MCHC 32.0 g/dL g/dL (30.0-36.0) RDW 15.2 % H % (12.1-15.1) Plt Count 293 10^3/cmm 10^3 /cmm (130-400) MPV 9.9 fL fL (7.4-10.4) Neut % (Auto) 75.4 % % Lymph % (Auto) 14.8 % % [place] % (Auto) 7.8 % % Eos % (Auto) 1.2 % % Baso % (Auto) 0.5 % % Neut # (Auto) 8.99 10^3/uL H 10 ^3/uL (1.8-7.7) Lymph # (Auto) 1.8 10^3/uL 10^3/ uL (0.8-4.8) [place] # (Auto) 0.9 10^3/uL 10^3/ uL (0.2-0.9) Eos # (Auto) 0.1 10^3/uL 10^3/ uL (0.0-0.8) Baso # (Auto) 0.1 10^3/uL 10^3/ uL (0.0-0.1) Nucleated RBC % (a uto) 0 % % Nucleated RBCs # 0.0 /100WBC /100W BC Sodium Cancelled Potassium Cancelled Chloride Cancelled Carbon Dioxide Cancelled Anion Gap Cancelled BUN Cancelled Creatinine Cancelled GFR Calculation Cancelled Glucose Cancelled Calculated Osmolal ity Cancelled Lactic Acid 0.8 mmol/L mmol/L (0.5-2.2) Calcium Cancelled Total Bilirubin Cancelled AST Cancelled ALT Cancelled Alkaline Phosphata se Cancelled Total Protein Cancelled Albumin Cancelled Globulin Cancelled Lipase Cancelled 08/31/21 09:43 WBC RBC Hgb Hct MCV MCH MCHC RDW Plt Count MPV Neut % (Auto) Lymph % (Auto) [place] % (Auto) Eos % (Auto) Baso % (Auto) Neut # (Auto) Lymph # (Auto) [place] # (Auto) Eos # (Auto) Baso # (Auto) Nucleated RBC % (a uto) Nucleated RBCs # Sodium 142 mmol/L mmol/L (136-145) Potassium 4.3 mmol/L mmol/L (3.5-5.1) Chloride 105 mmol/L mmol/L (98-107) Carbon Dioxide 25 mmol/L mmol/L (22-29) Anion Gap 16.3 (5-19) BUN 14 mg/dL mg/dL (6-20) Creatinine 0.8 mg/dL mg/dL (0.7-1.2) GFR Calculation 110.7 mL/min mL/m in (90-130) Glucose 101 mg/dL mg/dL (65-115) Calculated Osmolal ity 295 mOsm/kg mOsm/ kg (285-295) Lactic Acid Calcium 10.4 mg/dL mg/dL (8.5-10.5) Total Bilirubin 0.7 mg/dL mg/dL (0.15-1.2) AST 17 U/L U/L (0-40) ALT 11 U/L U/L (0-41) Alkaline Phosphata se 71 IU/L IU/L (40-130) Total Protein 7.8 g/dL g/dL (6.6-8.7) Albumin 4.8 g/dL g/dL (3.5-5.2) Globulin 3.0 g/dL g/dL (1.3-4.6) Lipase 17 U/L U/L (13-60) Imaging Data^: CT Abd/Pel: Attestation: I personally reviewed and interpreted this imaging study as follows: Radiologist's impression: [employer] [address] [address] [address] Scan Report Signed Patient: Wilfrid Carlin Unit #: [id number] : 1985 Age/Sex: 36 / M ADM Date: 08/31/21 Loc: ER Room/Bed: Attending Dr: Ordering Provider/Ordering MD: Caden Rouse Date of Service: 08/31/21 Procedure(s): CT abdomen pelvis w con* [id number] Accession Number(s): [id number] Report Number: [id number] PROCEDURE INFORMATION: Exam: CT Abdomen And Pelvis With Contrast Exam date and time: 08/31/2021 8:48 AM Age: 36 years old Clinical indication: Abdominal pain; Generalized; Prior surgery; Surgery date: 6+ months; Surgery type: Gastric/vascular; Additional info: Periumbilical and epigastric tenderness, n/v TECHNIQUE: Imaging protocol: Computed tomography of the abdomen and pelvis with contrast. Total images: 220 Radiation optimization: All CT scans at this facility use at least one of these dose optimization techniques: automated exposure control; mA and/or kV adjustment per patient size (includes targeted exams where dose is matched to clinical indication); or iterative reconstruction. Contrast material: OMNIPAQUE 300; Contrast volume: 95 ml; Contrast route: INTRAVENOUS (IV); COMPARISON: CT abdomen pelvis w con* [id number] 11/08/2020 10:07 AM RADIATION DOSE METRICS: Total DLP (mGy-cm): 1109.2 FINDINGS: Liver: Normal. No mass. Gallbladder and bile ducts: Normal. No calcified stones. No ductal dilation. Pancreas: Normal. No ductal dilation. Spleen: Normal. No splenomegaly. Adrenal glands: Normal. No mass. Kidneys and ureters: Normal. No hydronephrosis. Stomach and bowel: Postsurgical changes noted adjacent to the stomach unchanged from prior exam. Moderate stool burden. Appendix: No evidence of appendicitis. Intraperitoneal space: Unremarkable. No free air. No significant fluid collection. Vasculature: Unremarkable. No abdominal aortic aneurysm. Lymph nodes: Unremarkable. No enlarged lymph nodes. Urinary bladder: Unremarkable as visualized. Reproductive: Unremarkable as visualized. Bones/joints: Unremarkable. No acute fracture. Soft tissues: Unremarkable. CT/CT abdomen pelvis w con* [id number] IMPRESSION: 1. Moderate stool burden. 2. No acute process identified. Radiation Dose CTDIVOL = (mGy): DLP = 1109.2 (mGy-cm) Dictated By: Bishop De La O MD Signed By: Bishop De La O MD Signed Date/Time: 08/31/21 1020 DD/ 0848 EKG Data^: EKG 1: Attestation: I personally reviewed and interpreted this EKG as follows: EKG interpretation date: 08/31/21 Interpretation: Normal sinus rhythm, 67 bpm, no ST segment elevation or depression seen. Computer generated interpretation: Abdomen/Pelvis CT 08/31/21 08:48 IMPRESSION: 1. Moderate stool burden. 2. No acute process identified. Radiation Dose CTDIVOL = (mGy): DLP = 1109.2 (mGy-cm) Discharge Plan Discharge Patient Disposition: Home Clinical Impression: Dehydration determined by examination Acid reflux disease Qualifiers: Esophagitis presence: esophagitis presence not specified Qualified Code(s): K21.9 - Gastro-esophageal reflux disease without esophagitis Condition: Stable Prescriptions: New pantoprazole 40 mg tablet,delayed release (DR/EC) 40 mg PO DAILY 28 Days Qty: 30 RF: 0 Reglan 10 mg tablet 10 mg PO Q6H PRN (Reason: nausea and vomiting) Qty: 30 RF: 0 No Action triamcinolone acetonide 0.1 % cream 1 applic topical BID 14 Days Qty: 30 RF: 0 Discharge Orders: Discharge ED (Routine); Ordered 08/31/21 Ordered By: Caden Rouse Discharge Diet: Advance as tolerated and Clear Liquid Patient Instructions: Dehydration (ED), Clear Liquid Diet (ED), GERD (Gastroesophageal Reflux Disease) (DC), Opioid Safety Activity Restrictions/Additional Instructions: Follow-up with medical provider as directed. Case management will be contacting you in the next several days set up an appointment with her primary care provider. Start with a clear liquid diet for the next 24 to 48 hours then advance diet as tolerated. Take medications as prescribed. Return to the ER or your medical provider if condition worsens. Please read and understand discharge instructions. Thank you for choosing [facility] for your healthcare needs today. Please realize this is an emergency room and that we are providing you with a medical screening exam and this may not be complete and all inclusive of all the testing and or work up that you may need to determine your ailment or severity of your illness. It is very important that you follow up as instructed or that you return to the Emergency Department should you have concerns or if your condition changes or worsens in any way. Coding Level of Care Code ED Environmental Science Program Director for Jefferyg Fwd Exam Comprehensive
[2021-08-31 08:38] VITALS: BP 141/93; PULSE 77; RESP 14; O2SAT 98
--- NOTE | 2021-08-31 08:41 | ECG_ITS ---
[facility] Test Date: 2021-08-31 Pat Name: Wilfrid Carlin Department: Room: Gender: Male Metallurgical Tester: : 1985 Requested By: Caden Rouse Order Number: [id number] Diana MD: Theresa Storm M.D. Measurements Intervals Harvey Rate: 67 P: 11 DC: 142 QRS: 107 QRSD: 109 T: 68 QT: 404 QTc: 427 Interpretive Statements SINUS RHYTHM RIGHT AXIS DEVIATION [QRS AXIS > 100] Compared to ECG 11/08/2020 09:46:04 Intraventricular conduction delay no longer present Electronically Signed On 08-31-2021 13:12:26 HYDRAULIC MINER BLASTING by Theresa Storm M.D. [id number]
--- NOTE | 2021-08-31 08:48 | CTR_ITS ---
PROCEDURE INFORMATION: Exam: CT Abdomen And Pelvis With Contrast Exam date and time: 08/31/2021 8:48 AM Age: 36 years old Clinical indication: Abdominal pain; Generalized; Prior surgery; Surgery date: 6+ months; Surgery type: Gastric/vascular; Additional info: Periumbilical and epigastric tenderness, n/v TECHNIQUE: Imaging protocol: Computed tomography of the abdomen and pelvis with contrast. Total images: 220 Radiation optimization: All CT scans at this facility use at least one of these dose optimization techniques: automated exposure control; mA and/or kV adjustment per patient size (includes targeted exams where dose is matched to clinical indication); or iterative reconstruction. Contrast material: OMNIPAQUE 300; Contrast volume: 95 ml; Contrast route: INTRAVENOUS (IV); COMPARISON: CT abdomen pelvis w con* [id number] 11/08/2020 10:07 AM RADIATION DOSE METRICS: Total DLP (mGy-cm): 1109.2 FINDINGS: Liver: Normal. No mass. Gallbladder and bile ducts: Normal. No calcified stones. No ductal dilation. Pancreas: Normal. No ductal dilation. Spleen: Normal. No splenomegaly. Adrenal glands: Normal. No mass. Kidneys and ureters: Normal. No hydronephrosis. Stomach and bowel: Postsurgical changes noted adjacent to the stomach unchanged from prior exam. Moderate stool burden. Appendix: No evidence of appendicitis. Intraperitoneal space: Unremarkable. No free air. No significant fluid collection. Vasculature: Unremarkable. No abdominal aortic aneurysm. Lymph nodes: Unremarkable. No enlarged lymph nodes. Urinary bladder: Unremarkable as visualized. Reproductive: Unremarkable as visualized. Bones/joints: Unremarkable. No acute fracture. Soft tissues: Unremarkable. CT/CT abdomen pelvis w con* [id number] IMPRESSION: 1. Moderate stool burden. 2. No acute process identified. Radiation Dose CTDIVOL = (mGy): DLP = 1109.2 (mGy-cm)
[2021-08-31] MEDS: ondansetron 2 mg/ML SDV 2 mL 4 MG IVP (09:34)
[2021-08-31] MEDS: sodium chloride 0.9% 1,000 ML 999 ML IV ×2 (09:34→11:28)
[2021-08-31 09:50] LABS: Basophils # 0.1 10^3/uL (0.0-0.1); Basophils % 0.5 %; Eosinophils # 0.1 10^3/uL (0.0-0.8); Eosinophils % 1.2 %; Hematocrit 48.2 % (42.0-52.0); Hemoglobin 15.4 g/dL (11.7-16.6); Lymphocytes # 1.8 10^3/uL (0.8-4.8); Lymphocytes % 14.8 %; Mean Corpuscular Hemoglobin 26.4 pg (28.0-34.0); Mean Corpuscular Volume 82.7 fl (80-94); Mean Platelet Volume 9.9 fL (7.4-10.4); Monocytes # 0.9 10^3/uL (0.2-0.9); Monocytes % 7.8 %; Neutrophils # 8.99 10^3/uL (1.8-7.7); Neutrophils % 75.4 %; Nucleated Red Blood Cells % 0 %; Platelet Count 293 10^3/cmm (130-400); Red Blood Count 5.83 10^6/uL (4.1-5.3); Red Cell Distribution Width 15.2 % (12.1-15.1); White Blood Count 11.9 10^3/uL (4.0-10.0)
[2021-08-31] MEDS: iodixanol 320 mg/mL 100mL Btl IV (10:02)
[2021-08-31 10:12] LABS: Lactic Sepsis W/Reflex 0.8 mmol/L (0.5-2.2)
[2021-08-31 10:13] LABS: Alanine Aminotransferase 11 U/L (0-41); Albumin Level 4.8 g/dL (3.5-5.2); Alkaline Phosphatase 71 IU/L (40-130); Anion Gap 16.3 (5-19); Aspartate Amino Transferase 17 U/L (0-40); Blood Urea Nitrogen 14 mg/dL (6-20); Calcium 10.4 mg/dL (8.5-10.5); Carbon Dioxide 25 mmol/L (22-29); Chloride 105 mmol/L (98-107); Glomerular Filtration Rate 110.7 mL/min (90-130); Glucose 101 mg/dL (65-115); Lipase 17 U/L (13-60); Osmolality Calculated 295 mOsm/kg (285-295); Potassium 4.3 mmol/L (3.5-5.1); Sodium 142 mmol/L (136-145); Total Bilirubin 0.7 mg/dL (0.15-1.2); Total Protein 7.8 g/dL (6.6-8.7)
[2021-08-31 11:27] VITALS: RESP 14
[2021-08-31] MEDS: morphine 4 mg/mL SDV 1 mL IVP (11:27)
[2021-08-31] MEDS: lidocaine 2% viscous 15 ML, aluminum-mag hydrox-simethicon 30 ML, sucralfate oral liq 1 GM PO (11:28)
[2021-08-31 12:57] VITALS: RESP 14
[2021-08-31] MEDS: HYDROmorphone 1 mg/mL INJ 1 mL IVP (12:57)
--- NOTE | 2021-09-01 12:32 | DCPLANNER ---
farm field manager had message to speak with patient about getting established with a primary care physician. farm field manager spoke with patient, he stated that he would like help in getting established with a primary care physician. farm field manager called [facility], spoke with Abigail, gave clinic patients information. A follow up appointment was scheduled for , September 04, 2021 at 4:[address] Gomes. farm field manager called patient and gave patient the appointment information.
--- NOTE | 2021-11-09 16:23 | DCPLANNER ---
Patient had a follow up appointment scheduled with [facility] - patient did attend appointment.
== END 2021-08-31 13:04 | disposition home or self-care (01) ==
PROVIDERS: Emergency Provider Physician Assistant
DX: K21.9 Gastro-esophageal reflux disease without esophagitis (principal); E86.0 Dehydration; F17.210 Nicotine dependence, cigarettes, uncomplicated
CPT/HCPCS: 36415; 74177; 80053; 83605; 83690; 85025; 87040; 87077; 87186; 87205; 93005; 96361; 96374; 96375; 99283; J1170; J2270; J2405; J7030; Q9967

== ENCOUNTER 2021-10-10 02:13 | Emergency (ER) | payer SELFPAY ==
[2021-10-10 02:16] VITALS: BP 139/92; PULSE 68; RESP 24; O2SAT 98; BMI 23.6
[2021-10-10 02:17] VITALS: BP 143/99; PULSE 76; RESP 24; O2SAT 100
--- NOTE | 2021-10-10 02:17 | CTR_ITS ---
PROCEDURE INFORMATION: Exam: CT Abdomen And Pelvis With Contrast Exam date and time: 10/10/2021 2:17 AM Age: 36 years old Clinical indication: Nausea and vomiting; Abdominal pain; Generalized; Prior surgery; Surgery type: Gastric; Patient HX: Diffuse abd pain with n/v. TECHNIQUE: Imaging protocol: Computed tomography of the abdomen and pelvis with contrast. Radiation optimization: All CT scans at this facility use at least one of these dose optimization techniques: automated exposure control; mA and/or kV adjustment per patient size (includes targeted exams where dose is matched to clinical indication); or iterative reconstruction. Contrast material: OMNI 300; Contrast volume: 95 ml; Contrast route: INTRAVENOUS (IV); COMPARISON: CT abdomen pelvis w con* [id number] 08/31/2021 9:59 AM RADIATION DOSE METRICS: Total DLP (mGy-cm): 1028.03 FINDINGS: Liver: Normal. No mass. Gallbladder and bile ducts: Normal. No calcified stones. No ductal dilation. Pancreas: Normal. No ductal dilation. Spleen: Normal. No splenomegaly. Adrenal glands: Normal. No mass. Kidneys and ureters: Normal. No hydronephrosis. Stomach and bowel: Status post gastric surgery. Appendix: The appendix is visualized and is normal in configuration. Intraperitoneal space: Unremarkable. No free air. No significant fluid collection. Vasculature: Unremarkable. No abdominal aortic aneurysm. Lymph nodes: Unremarkable. No enlarged lymph nodes. Urinary bladder: Unremarkable as visualized. Reproductive: Unremarkable as visualized. Bones/joints: Unremarkable. No acute fracture. Soft tissues: Unremarkable. CT/CT abdomen pelvis w con* [id number] IMPRESSION: There are no acute abdominal findings.
--- NOTE | 2021-10-10 02:19 | W.ED.ABDPA2 ---
HPI - Abdominal Pain General: Chief Complaint: Abdominal Pain Stated Complaint: abd pain Time Seen by Provider: 10/10/21 02:14 Source: patient Mode of arrival: ambulatory Limitations: no limitations History of Present Illness: HPI narrative: 36-year-old male states he been having diffuse abdominal pain all day he states pain is severe in nature. He states it just hurts all over and he rates his pain a 10 out of 10 denies any worsening or improving factors denies any vomiting or diarrhea patient is in distress here. Denies any radiation of his pain denies any chest pain. Associated Symptoms: Denies chills, dysuria and fever(s) Review of Systems Const: Denies: fever(s), chills, body aches or change in appetite Eyes: Denies: blurry vision or eye discomfort ENMT: Denies: throat pain or dental pain Card: Denies: chest pain Resp: Denies: dyspnea GI: Reports: abdominal pain : Denies: dysuria Musc: Denies: neck pain or back pain Skin/Breast: Denies: rash Neuro: Denies: headache(s) Psych: Denies: depression Christos/Lymph: Denies: easy bruising All/Imm: Denies: urticaria PFSH ED PFSH: Social History Smoking and tobacco status: current every day smoker Alcohol intake: current Alcohol intake frequency: few times a week Physical Exam Const: COMMON NORMALS: no acute distress, patient oriented x3 and healthy appearing HENMT: COMMON NORMALS: normocephalic and atraumatic HEAD & SCALP: normocephalic and atraumatic Eye: COMMON NORMALS: Equal, round and reactive pupils present and EOMs intact bilaterally PUPIL: Yes Equal, round and reactive pupils present Neck/C-Spine: COMMON NORMALS: full ROM and supple Chest: COMMONS NORMALS: normal inspection of the chest and normal palpation of entire chest wall Resp: COMMON NORMALS: normal respiratory effort, No retractions, No use of accessory muscles and clear to auscultation bilaterally AUSCULTATION: clear to auscultation bilaterally Cardio: COMMON NORMALS: regular rate, regular rhythm and No murmurs present (Cardio) RATE: regular rate RHYTHM: regular rhythm GI: COMMON NORMALS: Normal to inspection, nondistended, normoactive bowel sounds present, Soft to palpation and no masses PALPATION: Yes Soft to palpation and Yes Tenderness to palpation present (GI) (diffuse) Extremity: COMMON NORMALS: normal to inspection and full ROM Neuro: COMMON NORMALS: patient oriented x3, moves all extremities and no focal motor deficits Psych: COMMON NORMALS: mental status grossly normal, Normal thought process present and cooperative THOUGHT PROCESS: Normal thought process present Skin: COMMON NORMALS: no rashes or lesions noted and no wounds GENERAL SKIN EXAM: no rashes or lesions noted Course Vital Signs: Vital signs: Vital Signs Pulse Rate 76 10/10/21 02:17 Respiratory Rate 26 H 10/10/21 02:40 Blood Pressure 148/99 10/10/21 04:15 Pulse Oximetry 100 10/10/21 02:40 MDM - Abdominal Pain MDM Narrative: Medical decision making narrative: Patient presents with abdominal pain is since resolved patient's abdominal CT blood work here is all normal. Exam at discharge is benign he stable for discharge is to follow-up with PCP and return if worsening. Lab Data: Labs: Lab Results 10/10/21 10/10/21 10/10/21 02:18 02:18 02:18 WBC 12.2 10^3/uL H 10 ^3/uL (4.0-10.0) RBC 5.68 10^6/uL H 10 ^6/uL (4.1-5.3) Hgb 14.7 g/dL g/dL (11.7-16.6) Hct 46.3 % % (42.0-52.0) MCV 81.5 fl fl (80-94) MCH 25.9 pg L pg (28.0-34.0) MCHC 31.7 g/dL g/dL (30.0-36.0) RDW 15.2 % H % (12.1-15.1) Plt Count 313 10^3/cmm 10^3 /cmm (130-400) MPV 10.1 fL fL (7.4-10.4) Neut % (Auto) 67.9 % % Lymph % (Auto) 21.2 % % Cherry % (Auto) 8.1 % % Eos % (Auto) 1.9 % % Baso % (Auto) 0.7 % % Neut # (Auto) 8.27 10^3/uL H 10 ^3/uL (1.8-7.7) Lymph # (Auto) 2.6 10^3/uL 10^3/ uL (0.8-4.8) Cherry # (Auto) 1.0 10^3/uL H 10^ 3/uL (0.2-0.9) Eos # (Auto) 0.2 10^3/uL 10^3/ uL (0.0-0.8) Baso # (Auto) 0.1 10^3/uL 10^3/ uL (0.0-0.1) Nucleated RBC % (a uto) 0 % % Nucleated RBCs # 0.0 /100WBC /100W BC Sodium 142 mmol/L mmol/L (136-145) Potassium 4.3 mmol/L mmol/L (3.5-5.1) Chloride 104 mmol/L mmol/L (98-107) Carbon Dioxide 18 mmol/L L mmol/ L (22-29) Anion Gap 24.3 H (5-19) BUN 8 mg/dL mg/dL (6-20) Creatinine 0.9 mg/dL mg/dL (0.7-1.2) GFR Calculation 96.6 mL/min mL/mi n (90-130) Glucose 114 mg/dL mg/dL (65-115) Calculated Osmolal ity 293 mOsm/kg mOsm/ kg (285-295) Lactate 2.5 mmol/L H mmol /L (0.5-2.2) Calcium 8.8 mg/dL mg/dL (8.5-10.5) Total Bilirubin 0.6 mg/dL mg/dL (0.15-1.2) AST 21 U/L U/L (0-40) ALT 9 U/L U/L (0-41) Alkaline Phosphata se 68 IU/L IU/L (40-130) Total Protein 7.7 g/dL g/dL (6.6-8.7) Albumin 4.8 g/dL g/dL (3.5-5.2) Globulin 2.9 g/dL g/dL (1.3-4.6) Lipase 19 U/L U/L (13-60) Urine Color Urine Appearance Urine pH Ur Specific Gravit y Urine Protein Urine Glucose (UA) Urine Ketones Urine Blood Urine Nitrate Urine Bilirubin Urine Urobilinogen Ur Leukocyte Rashida ase Urine RBC Urine WBC Ur Squamous Epith Cells Amorphous Sediment Urine Bacteria Fine Granular Cast s Urine Mucus 10/10/21 03:05 WBC RBC Hgb Hct MCV MCH MCHC RDW Plt Count MPV Neut % (Auto) Lymph % (Auto) Cherry % (Auto) Eos % (Auto) Baso % (Auto) Neut # (Auto) Lymph # (Auto) Cherry # (Auto) Eos # (Auto) Baso # (Auto) Nucleated RBC % (a uto) Nucleated RBCs # Sodium Potassium Chloride Carbon Dioxide Anion Gap BUN Creatinine GFR Calculation Glucose Calculated Osmolal ity Lactate Calcium Total Bilirubin AST ALT Alkaline Phosphata se Total Protein Albumin Globulin Lipase Urine Color Yellow (Yellow) Urine Appearance Clear (CLEAR) Urine pH 5 (5-7) Ur Specific Gravit y 1.015 (1.005-1.030) Urine Protein 1+ H (Negative) Urine Glucose (UA) Norm (Normal) Urine Ketones Negative (Negative) Urine Blood Trace H (Negative) Urine Nitrate Negative (Negative) Urine Bilirubin Neg (Negative) Urine Urobilinogen 1 mg/dL H mg/dL (Negative) Ur Leukocyte Rashida ase Negative (Negative) Urine RBC Rare /hpf /hpf (0-2) Urine WBC 0-4 /hpf H /hpf (0-5) Ur Squamous Epith Cells 0-4 /hpf H /hpf (0-5) Amorphous Sediment Not Reportable Urine Bacteria None /hpf /hpf (NONE) Fine Granular Cast s 0-4 /lpf H /lpf Urine Mucus 2+ /hpf /hpf Imaging Data ^: CT Abd/Pel: Attestation: I personally reviewed and interpreted this imaging study as follows: Radiologist's impression: [address] [address] [address] Scan Report Signed Patient: Wilfrid Carlin Unit #: [id number] : 1985 Age/Sex: 36 / M ADM Date: 10/10/21 Loc: ER Room/Bed: Attending Dr: Ordering Provider/Ordering MD: Mode Ramos MD Date of Service: 10/10/21 Procedure(s): CT abdomen pelvis w con* [id number] Accession Number(s): [id number] Report Number: [id number] PROCEDURE INFORMATION: Exam: CT Abdomen And Pelvis With Contrast Exam date and time: 10/10/2021 2:17 AM Age: 36 years old Clinical indication: Nausea and vomiting; Abdominal pain; Generalized; Prior surgery; Surgery type: Gastric; Patient HX: Diffuse abd pain with n/v. TECHNIQUE: Imaging protocol: Computed tomography of the abdomen and pelvis with contrast. Radiation optimization: All CT scans at this facility use at least one of these dose optimization techniques: automated exposure control; mA and/or kV adjustment per patient size (includes targeted exams where dose is matched to clinical indication); or iterative reconstruction. Contrast material: OMNI 300; Contrast volume: 95 ml; Contrast route: INTRAVENOUS (IV); COMPARISON: CT abdomen pelvis w con* [id number] 08/31/2021 9:59 AM RADIATION DOSE METRICS: Total DLP (mGy-cm): 1028.03 FINDINGS: Liver: Normal. No mass. Gallbladder and bile ducts: Normal. No calcified stones. No ductal dilation. Pancreas: Normal. No ductal dilation. Spleen: Normal. No splenomegaly. Adrenal glands: Normal. No mass. Kidneys and ureters: Normal. No hydronephrosis. Stomach and bowel: Status post gastric surgery. Appendix: The appendix is visualized and is normal in configuration. Intraperitoneal space: Unremarkable. No free air. No significant fluid collection. Vasculature: Unremarkable. No abdominal aortic aneurysm. Lymph nodes: Unremarkable. No enlarged lymph nodes. Urinary bladder: Unremarkable as visualized. Reproductive: Unremarkable as visualized. Bones/joints: Unremarkable. No acute fracture. Soft tissues: Unremarkable. CT/CT abdomen pelvis w con* [id number] IMPRESSION: There are no acute abdominal findings. Dictated By: Ricardo Pan MD Signed By: Ricardo Pan MD Signed Date/Time: 10/10/21322 DD/ 6 Discharge Plan Discharge Patient Disposition: Home Clinical Impression: Abdominal pain Qualifiers: Abdominal location: epigastric Qualified Code(s): R10.13 - Epigastric pain Condition: Stable Prescriptions: New Protonix 40 mg tablet,delayed release (DR/EC) 40 mg PO DAILY Qty: 60 RF: 0 No Action Reglan 10 mg tablet 10 mg PO Q6H PRN (Reason: nausea and vomiting) Qty: 30 RF: 0 Discharge Orders: Discharge ED (Routine); Ordered 10/10/21 Ordered By: Mode Ramos Referrals: Bishop Naqvi, [Primary Care Provider] - 1-3 days Discharge Diet: Advance as tolerated Discharge Activity: Resume usual activity Patient Instructions: Abdominal Pain (ED) Coding Level of Care Code ED Training Development Manager for Chg Fwd Exam Comprehensive
[2021-10-10 02:38] LABS: Basophils # 0.1 10^3/uL (0.0-0.1); Basophils % 0.7 %; Eosinophils # 0.2 10^3/uL (0.0-0.8); Eosinophils % 1.9 %; Hematocrit 46.3 % (42.0-52.0); Hemoglobin 14.7 g/dL (11.7-16.6); Lymphocytes # 2.6 10^3/uL (0.8-4.8); Lymphocytes % 21.2 %; Mean Corpuscular HGB Conc 31.7 g/dL (30.0-36.0); Mean Corpuscular Hemoglobin 25.9 pg (28.0-34.0); Mean Corpuscular Volume 81.5 fl (80-94); Mean Platelet Volume 10.1 fL (7.4-10.4); Monocytes % 8.1 %; Neutrophils # 8.27 10^3/uL (1.8-7.7); Neutrophils % 67.9 %; Nucleated Red Blood Cells % 0 %; Platelet Count 313 10^3/cmm (130-400); Red Blood Count 5.68 10^6/uL (4.1-5.3); Red Cell Distribution Width 15.2 % (12.1-15.1); White Blood Count 12.2 10^3/uL (4.0-10.0)
[2021-10-10] MEDS: sodium chloride 0.9% 1,000 ML 999 ML IV ×2 (02:39→03:16)
[2021-10-10] MEDS: iohexol 300 mg/mL 100 mL Btl IV (02:39)
[2021-10-10 02:40] VITALS: RESP 26; O2SAT 100
[2021-10-10] MEDS: HYDROmorphone 1 mg/mL INJ 1 mL IVP (02:40)
[2021-10-10] MEDS: diphenhydrAMINE 50 mg/mL SDV 1mL IVP (02:40)
[2021-10-10] MEDS: metoclopramide 5 mg/mL SDV 2 mL 10 MG IVP (02:40)
[2021-10-10 02:59] LABS: Alanine Aminotransferase 9 U/L (0-41); Albumin Level 4.8 g/dL (3.5-5.2); Alkaline Phosphatase 68 IU/L (40-130); Blood Urea Nitrogen 8 mg/dL (6-20); Calcium 8.8 mg/dL (8.5-10.5); Carbon Dioxide 18 mmol/L (22-29); Chloride 104 mmol/L (98-107); Globulin 2.9 g/dL (1.3-4.6); Glomerular Filtration Rate 96.6 mL/min (90-130); Glucose 114 mg/dL (65-115); Lipase 19 U/L (13-60); Osmolality Calculated 293 mOsm/kg (285-295); Sodium 142 mmol/L (136-145); Total Bilirubin 0.6 mg/dL (0.15-1.2); Total Protein 7.7 g/dL (6.6-8.7)
[2021-10-10 03:00] LABS: Lactate (Lactic Acid level) 2.5 mmol/L (0.5-2.2)
[2021-10-10 03:10] LABS: Anion Gap 24.3 (5-19); Aspartate Amino Transferase 21 U/L (0-40); Potassium 4.3 mmol/L (3.5-5.1)
[2021-10-10 03:20] VITALS: BP 142/99
[2021-10-10 03:36] LABS: Urine Appearance Clear (CLEAR); Urine Color Yellow (Yellow)
[2021-10-10 03:37] LABS: Bilirubin Urine Neg (Negative); Blood Urine Trace (Negative); Glucose Urine UA Norm (Normal); Ketones Urine Negative (Negative); Leukocyte Esterase Urine Negative (Negative); Nitrate Urine Negative (Negative); Protein Urine 1+ (Negative); Specific Gravity, Urine 1.015 (1.005-1.030); Urobilinogen Urine 1 mg/dL (Negative); pH Urine 5 (5-7)
[2021-10-10 03:38] LABS: Add Urine Culture? No; Add Urine Microscopic? YES; Fine Granular Casts Urine 0-4 /lpf; Mucus Urine 2+ /hpf; RBC Urine RARE /hpf (0-2); Squamous Epithelial Cell Urine 0-4 /hpf (0-5); WBC Urine 0-4 /hpf (0-5)
[2021-10-10 04:15] VITALS: BP 148/99
== END 2021-10-10 04:00 | disposition home or self-care (01) ==
PROVIDERS: Emergency Provider Emergency Medicine; PCP Family Medicine
DX: R10.13 Epigastric pain (principal); F17.210 Nicotine dependence, cigarettes, uncomplicated
CPT/HCPCS: 74177; 80053; 81001; 83605; 83690; 85025; 96361; 96374; 96375; 99284; J1170; J1200; J2765; J7030; Q9967

== ENCOUNTER → 2021-11-11 16:19 | Outpatient (BNVA) | payer OTHER, SELFPAY | PROVIDERS: PCP Family Medicine; Visit Provider Family Medicine | DX: Z20.822 Contact with and (suspected) exposure to COVID-19 (principal) | CPT/HCPCS: 87635 ==

== ENCOUNTER 2022-04-08 06:00 | Day surgery (SDC) | payer SELFPAY ==
[2022-04-08 06:24] VITALS: BP 118/74; PULSE 62; RESP 16; TEMP 36.6; O2SAT 97
[2022-04-08] MEDS: sodium chloride 0.9% 1,000 ML 30 ML IV (06:37)
--- NOTE | 2022-04-08 07:01 | P.ANESASSM_ITS ---
Documented by User: Merrill Reece Jr, COMBAT RIFLE CREWMEMBER 04/08/22 07:04 Pre-Anesthetic Assessment Height/Weight: Height 1.91 m Weight 81.647 kg Temp Pulse Resp BP Pulse Ox 97.9 F 62 16 118/74 97 04/08/22 06:24 04/08/22 06:24 04/08/22 06:24 04/08/22 06:24 04/08/22 06:24 Preop Diagnosis: upper gi symptoms Operation Date: 04/08/22 07:30 Proposed Procedures p EGD 92224/k21.9(Not Applicable) - Wero Alas MD Familial anesthetic complications: none Was Beta Carlyle taken within 24 hours: N/A Was Clonidine taken within 24 hours: N/A Last intake: Intake Last Liquid Date 04/07/22 Last Liquid Time 21:00 Last Solid Date 04/07/22 Last Solid Time 21:00 Last Intake: 21:00 Social Tobacco and No alcohol 1ppd pack(s) per day 10+ pack years Exam alert, oriented x 3, clear to auscultation bilaterally and regular rate & rhythm Airway Submandibular: within normal limits Cervical ROM: within normal limits Mallampati: Class II Dentition: full Pulmonary None reported CV/HEM None reported None reported Hepatic None reported GI Gastroesophageal Reflux Disease Metabolic None reported Musc/skel None reported Neuropsych Anxiety and Depression Anesthetic Plan ASA status: 1 Anesthesia: MAC Medications/Allergies Home Medications Medication Instructions Recorded Confirmed Last Taken Type sucralfate 1 gram tablet (Carafate) 1 g PO BID PRN #60 tab 01/06/22 04/08/22 04/07/22 Rx pantoprazole 40 mg tablet,delayed 40 mg PO BID 30 Days #60 tab 02/09/22 04/08/22 04/07/22 Rx release (Protonix) Allergies Allergy/AdvReac Type Severity Reaction Status Date / Time No Known Allergies Allergy Verified 02/17/22 14:17 Current Medications Generic Name Dose Route Start Last Admin Trade Name Freq PRN Reason Stop Dose Admin Sodium Chloride 1,000 mls @ 30 mls/hr 04/08/22 06:15 04/08/22 06:37 Sodium Chloride 0.9% IV 04/09/22 06:14 30 mls/hr .Q24H LEDA Administration PFSH Anesthesia Surgical History History of colonoscopy 15 years History of esophagogastroduodenoscopy S/P gastric surgery patient not sure of details but for bleeding - done laparoscopic Social History Smoking and tobacco status: current every day smoker cigarettes Packs smoked per day: 0.5 Alcohol intake: current Alcohol intake frequency: few times a week Data Anesthesia Cardiac Studies: No Data to Display
--- NOTE | 2022-04-08 07:28 | W.PM.OPSFHP ---
Same Day Surgery H&P Indication for Procedure/HPI DATE OF PROCEDURE: April 08, 2022 CHIEF COMPLAINT/INDICATIONFOR SURGICAL PROCEDURE: egd PREOP DIAGNOSIS: upper gi symptoms PLANNED PROCEDURE: Operation Date: 04/08/22 07:30 Proposed Procedures p EGD 11129/k21.9(Not Applicable) - Wero Alas MD Medications/Allergies* Allergies/Adverse Reactions Allergy/AdvReac Type Severity Reaction Status Date / Time No Known Allergies Allergy Verified 02/17/22 14:17 Current Medications: Generic Name Dose Route Start Last Admin Trade Name Freq PRN Reason Stop Dose Admin Sodium Chloride 1,000 mls @ 30 mls/hr 04/08/22 06:15 04/08/22 06:37 Sodium Chloride 0.9% IV 04/09/22 06:14 30 mls/hr .Q24H LEDA Administration Pertinent History/Comorbid Conditions* Surgical History (Updated 02/17/22 @ 14:28 by Wero Alas MD) History of colonoscopy 15 years History of esophagogastroduodenoscopy S/P gastric surgery patient not sure of details but for bleeding - done laparoscopic Social History Smoking and tobacco status: current every day smoker cigarettes Packs smoked per day: 0.5 Alcohol intake: current Alcohol intake frequency: few times a week Pertinent Exam Findings alert, oriented x 3 and regular rate & rhythm Recommendations Surgery/Procedure today Coding Level of Care Code Acute Property Disposal Manager for Chg Simon
[2022-04-08 07:44] VITALS: BP 99/63; PULSE 57; RESP 16; TEMP 36.6; O2SAT 98
[2022-04-08 07:58] VITALS: BP 100/62; PULSE 53; RESP 16; O2SAT 99
--- NOTE | 2022-04-08 12:39 | ANE.PACU2 ---
Inpatient post-anesthesia follow up: Airway intact: Yes Vital signs: Temperature 97.8 F Pulse Rate 53 Respiratory Rate 16 Blood Pressure 100/62 Pulse Oximetry 99 Oxygen Delivery Me thod Room Air Oxygen Flow Rate Fraction of Inspir ed Oxygen Hydration adequate: Yes Nausea and vomiting: No Pain level: 1 Mental status: Baseline
== END 2022-04-08 08:15 | disposition home or self-care (01) ==
PROVIDERS: PCP Family Medicine; Visit Provider Surgery
PROC: 0DJ08ZZ Inspection of Upper Intestinal Tract, Via Natural or Artificial Opening Endoscopic (ICD-10-PCS; CPT 43235; principal; 2022-04-08 07:30)
DX: K21.9 Gastro-esophageal reflux disease without esophagitis (principal); K29.50 Unspecified chronic gastritis without bleeding; B96.81 Helicobacter pylori [H. pylori] as the cause of diseases classified elsewhere; F17.210 Nicotine dependence, cigarettes, uncomplicated; F41.9 Anxiety disorder, unspecified; F32.9 Major depressive disorder, single episode, unspecified
CPT/HCPCS: 43239; 88305; J2704; J7030

== ENCOUNTER 2022-04-19 01:52 | Emergency (ER) | payer SELFPAY ==
--- NOTE | 2022-04-19 01:55 | XRR_ITS ---
PROCEDURE INFORMATION: Exam: XR Chest Exam date and time: 04/19/2022 2:48 AM Age: 37 years old Clinical indication: Pain; Angina pectoris; Additional info: Cp TECHNIQUE: Imaging protocol: Radiologic exam of the chest. Views: 1 view. COMPARISON: CR XR chest 1V portable [id number] 11/08/2020 9:30 AM FINDINGS: Lungs: The lung parenchyma is clear. Pleural spaces: No pneumothorax. No pleural effusion. Heart/Mediastinum: The cardiomediastinal silhouette is within normal limits. Bones/joints: Unremarkable. XR/XR chest 1V portable [id number] IMPRESSION: No acute cardiopulmonary abnormality.
--- NOTE | 2022-04-19 01:56 | ECG_ITS ---
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 Measurements Intervals [place] Rate: 67 P: 66 [place]: 134 QRS: 91 QRSD: 113 T: 84 QT: 418 QTc: 444 Interpretive Statements SINUS RHYTHM BORDERLINE RIGHT AXIS DEVIATION [QRS AXIS > 90] MODERATE INTRAVENTRICULAR CONDUCTION DELAY [110+ ms QRS DURATION] Compared to ECG 08/31/2021 09:14:58 Intraventricular conduction delay now present Electronically Signed On 04-19-2022 8:37:38 CDT by Berny Trejo M.D. [email or web address]
[2022-04-19 02:03] VITALS: BP 137/85; PULSE 81; RESP 16; TEMP 37.1; O2SAT 98; BMI 19.7
[2022-04-19 02:21] LABS: Basophils # 0.1 10^3/uL (0.0-0.1); Basophils % 0.8 %; Eosinophils # 0.2 10^3/uL (0.0-0.8); Eosinophils % 1.5 %; Hematocrit 46.2 % (42.0-52.0); Hemoglobin 15.8 g/dL (11.7-16.6); Lymphocytes # 2.4 10^3/uL (0.8-4.8); Lymphocytes % 16.7 %; Mean Corpuscular HGB Conc 34.2 g/dL (30.0-36.0); Mean Corpuscular Hemoglobin 27.5 pg (28.0-34.0); Mean Corpuscular Volume 80.3 fl (80-94); Mean Platelet Volume 9.8 fL (7.4-10.4); Monocytes # 1.1 10^3/uL (0.2-0.9); Monocytes % 7.9 %; Neutrophils # 10.47 10^3/uL (1.8-7.7); Neutrophils % 72.7 %; Nucleated Red Blood Cells % 0 %; Platelet Count 305 10^3/cmm (130-400); Red Blood Count 5.75 10^6/uL (4.1-5.3); Red Cell Distribution Width 14.8 % (12.1-15.1); White Blood Count 14.4 10^3/uL (4.0-10.0)
--- NOTE | 2022-04-19 02:26 | W.ED.ABDPA2 ---
Documented by User: WARREN Cota 04/19/22 15:05 HPI - Abdominal Pain General: Chief Complaint: Nausea/Vomiting/Diarrhea Stated Complaint: cp Time Seen by Provider: 04/19/22 02:11 History of Present Illness: Patient is a 37-year-old male who comes to the ED with epigastric pain and chest pain. Patient recently had a upper GI scope done on April 08 and they found that he had gastritis and he was sent home with a prescription of amoxicillin, clarithromycin. Patient also takes pantoprazole and sucralfate for gastritis. A couple hours prior to arrival. He has been having epigastric pain that he rates a 10 out of 10 with nausea and vomiting. He also started getting pain that radiated up into his chest a couple hours ago after the epigastric pain started. He has not been able to keep any food or fluids down over the past couple hours. Associated Symptoms: Denies chills, constipation, diarrhea, dysuria, fever(s), hematochezia, hematuria, nausea and vomiting Review of Systems Const: Denies: fever(s), chills or fatigue Eyes: Denies: change in vision or eye discomfort ENMT: Denies: throat pain, odynophagia, nasal discharge or nasal congestion Card: Denies: chest pain, palpitations, edema, swelling of feet/ankles, dyspnea on exertion or orthopnea Resp: Denies: dyspnea, productive cough or non-productive cough GI: Denies: abdominal pain, nausea, vomiting, diarrhea, constipation or hematochezia : Denies: flank pain, difficulty urinating, dysuria or hematuria Musc: Denies: neck pain, back pain or extremity swelling Skin/Breast: Denies: rash or new lesions Neuro: Denies: headache(s), numbness in extremities or weakness in extremities PFS ED PFSH: Surgical History History of colonoscopy 15 years History of esophagogastroduodenoscopy (04/08/22) S/P gastric surgery patient not sure of details but for bleeding - done laparoscopic Social History Smoking and tobacco status: current every day smoker cigarettes Packs smoked per day: 0.5 Alcohol intake: current Alcohol intake frequency: few times a week Physical Exam Const: COMMON NORMALS: patient oriented x3 and alert GENERAL APPEARANCE: in distress (Patient has moaning in pain and will not sit still.) and anxious HENMT: COMMON NORMALS: normocephalic HEAD & SCALP: normocephalic MOUTH: Normal oral and palatal mucosa present THROAT: posterior oropharynx normal and uvula midline Neck/C-Spine: COMMON NORMALS: supple GENERAL: Yes normal visual inspection Resp: COMMON NORMALS: normal respiratory effort, No retractions, No use of accessory muscles and clear to auscultation bilaterally AUSCULTATION: clear to auscultation bilaterally Cardio: COMMON NORMALS: regular rate, regular rhythm, S1 normal heart sound present, S2 normal heart sound present, No gallops present (Cardio), No clicks present (Cardio), No murmurs present (Cardio) and Peripheral pulses 2+ throughout RATE: regular rate RHYTHM: regular rhythm HEART SOUNDS: S1 normal heart sound present and S2 normal heart sound present PERIPHERAL PULSES: Peripheral pulses 2+ throughout GI: COMMON NORMALS: Normal to inspection, nondistended, normoactive bowel sounds present, Soft to palpation and no masses PALPATION: Yes Soft to palpation and Yes Tenderness to palpation present (GI) Details: other (Epigastric) : COMMON NORMALS: Yes no CVA tenderness BLADDER/KIDNEY EXAM: Yes no CVA tenderness Back/Pelvis: COMMON NORMALS: no CVA tenderness Extremity: COMMON NORMALS: normal to inspection Neuro: COMMON NORMALS: patient oriented x3 and moves all extremities SENSORIUM/ORIENTATION: Yes alert Skin: GENERAL SKIN EXAM: dry skin Course Vital Signs: Vital signs: Vital Signs Temperature 98.7 F 04/19/22 02:03 Pulse Rate 63 04/19/22 06:25 Respiratory Rate 16 04/19/22 06:25 Blood Pressure 134/90 04/19/22 06:25 Pulse Oximetry 98 04/19/22 06:25 MDM - Abdominal Pain Medical Decision Making Signout in error, please see documentation by Dr. Ceballos. I performed the initial history physical exam and lab work-up of patient. Labs and imaging were pending. Patient was signed over to Dr. Ceballos at the end of my shift. Dr. Ceballos managed the rest of patient's care and dispo plan. Lab Data I reviewed the patient's lab results. : 04/19/22 02:15 04/19/22 02:15 Labs/Radiology: Radiology Impressions Chest X-Ray 04/19/22 01:55 IMPRESSION: No acute cardiopulmonary abnormality. Abdomen/Pelvis CT 04/19/22 03:27 IMPRESSION: No acute abdominopelvic abnormality identified. Laboratory Results WBC 14.4 10^3/uL (4.0-10.0) H 04/19/22 02:15 RBC 5.75 10^6/uL (4.1-5.3) H 04/19/22 02:15 Hgb 15.8 g/dL (11.7-16.6) 04/19/22 02:15 Hct 46.2 % (42.0-52.0) 04/19/22 02:15 MCV 80.3 fl (80-94) 04/19/22 02:15 MCH 27.5 pg (28.0-34.0) L 04/19/22 02:15 MCHC 34.2 g/dL (30.0-36.0) 04/19/22 02:15 RDW 14.8 % (12.1-15.1) 04/19/22 02:15 Plt Count 305 10^3/cmm (130-400) 04/19/22 02:15 MPV 9.8 fL (7.4-10.4) 04/19/22 02:15 Neut % (Auto) 72.7 % 04/19/22 02:15 Lymph % (Auto) 16.7 % 04/19/22 02:15 Roosevelt % (Auto) 7.9 % 04/19/22 02:15 Eos % (Auto) 1.5 % 04/19/22 02:15 Baso % (Auto) 0.8 % 04/19/22 02:15 Neut # (Auto) 10.47 10^3/uL (1.8-7.7) H 04/19/22 02:15 Lymph # (Auto) 2.4 10^3/uL (0.8-4.8) 04/19/22 02:15 Roosevelt # (Auto) 1.1 10^3/uL (0.2-0.9) H 04/19/22 02:15 Eos # (Auto) 0.2 10^3/uL (0.0-0.8) 04/19/22 02:15 Baso # (Auto) 0.1 10^3/uL (0.0-0.1) 04/19/22 02:15 Nucleated RBC % (auto) 0 % 04/19/22 02:15 Nucleated RBCs # 0.0 /100WBC 04/19/22 02:15 Sodium 142 mmol/L (136-145) 04/19/22 02:15 Potassium 3.6 mmol/L (3.5-5.1) 04/19/22 02:15 Chloride 104 mmol/L (98-107) 04/19/22 02:15 Carbon Dioxide 22 mmol/L (22-29) 04/19/22 02:15 Anion Gap 19.6 (5-19) H 04/19/22 02:15 BUN 23 mg/dL (6-20) H 04/19/22 02:15 Creatinine 1.1 mg/dL (0.7-1.2) 04/19/22 02:15 GFR Calculation 76.2 mL/min (90-130) L 04/19/22 02:15 Glucose 121 mg/dL (65-115) H 04/19/22 02:15 Calculated Osmolality 299 mOsm/kg (285-295) H 04/19/22 02:15 Calcium 10.0 mg/dL (8.5-10.5) 04/19/22 02:15 Total Bilirubin 0.8 mg/dL (0.15-1.2) 04/19/22 02:15 AST 22 U/L (0-40) 04/19/22 02:15 ALT 12 U/L (0-41) 04/19/22 02:15 Alkaline Phosphatase 79 IU/L (40-130) 04/19/22 02:15 Troponin T Baseline 6 ng/L (0-15) 04/19/22 02:15 Troponin T 120 Minute 6.00 ng/L (0-15) 04/19/22 03:59 Delta Troponin T 0 ABS# (0-10) 04/19/22 03:59 Total Protein 8.4 g/dL (6.6-8.7) 04/19/22 02:15 Albumin 5.4 g/dL (3.5-5.2) H 04/19/22 02:15 Globulin 3.0 g/dL (1.3-4.6) 04/19/22 02:15 Lipase 33 U/L (13-60) 04/19/22 02:15 EKG Data EKG 1: EKG interpretation date: 04/19/22 Interpretation: Sinus bradycardia, 52 bpm, no ST segment elevation or depression seen. Discharge Plan Discharge Patient Disposition: Home Clinical Impression: Chest pain, Vomiting Condition: Stable Prescriptions: New ondansetron 4 mg film 4 mg PO DAILY PRN (Reason: nausea and vomiting) Qty: 10 0RF No Action sucralfate [Carafate] 1 gram tablet 1 g PO BID PRN (Reason: heartburn) Qty: 60 2RF clarithromycin 500 mg tablet 500 mg PO BID 14 Days Qty: 28 0RF amoxicillin 500 mg tablet 1,000 mg PO BID 14 Days Qty: 56 0RF pantoprazole [Protonix] 40 mg tablet,delayed release (DR/EC) 40 mg PO BID 14 Days Qty: 28 0RF Discharge Orders: Discharge ED (Routine); Ordered 04/19/22 Ordered By: Sekou Ceballos Referrals: Bishop Naqvi DO [Primary Care Provider] - 1-3 days Patient Instructions: Chest Pain (ED), Vomiting - Adult Activity Restrictions/Additional Instructions: Testing did not reveal a cause of your chest or abdominal pain or vomiting this morning. Return for vomiting liquids despite treatment, fever greater than 100, blood in the stool or vomit, other concerning symptoms. Take the medication prescribed every 6 hours for the next 24 hours, then as needed. Sign Out Sign Out Data: Patient Sign Out occurred on 04/19/22 at 06:19. Patient's care was discussed, and care was transferred from to Taurus George MD. Coding Level of Care Code ED [facility] Registrar for Chg Fwd Exam Comprehensive Documented by User: Taurus George MD 04/19/22 06:22 HPI - Abdominal Pain General: Chief Complaint: Nausea/Vomiting/Diarrhea Stated Complaint: cp Time Seen by Provider: 04/19/22 02:11 PFSH ED PFSH: Surgical History History of colonoscopy 15 years History of esophagogastroduodenoscopy (04/08/22) S/P gastric surgery patient not sure of details but for bleeding - done laparoscopic Social History Smoking and tobacco status: current every day smoker cigarettes Packs smoked per day: 0.5 Alcohol intake: current Alcohol intake frequency: few times a week Course Vital Signs: Vital signs: Vital Signs Temperature 98.7 F 04/19/22 02:03 Pulse Rate 63 04/19/22 06:25 Respiratory Rate 16 04/19/22 06:25 Blood Pressure 134/90 04/19/22 06:25 Pulse Oximetry 98 04/19/22 06:25 MDM - Abdominal Pain Medical Decision Making Signout in error, please see documentation by Dr. Ceballos. Lab Data : 04/19/22 02:15 04/19/22 02:15 Labs/Radiology: Radiology Impressions Chest X-Ray 04/19/22 01:55 IMPRESSION: No acute cardiopulmonary abnormality. Abdomen/Pelvis CT 04/19/22 03:27 IMPRESSION: No acute abdominopelvic abnormality identified. Laboratory Results WBC 14.4 10^3/uL (4.0-10.0) H 04/19/22 02:15 RBC 5.75 10^6/uL (4.1-5.3) H 04/19/22 02:15 Hgb 15.8 g/dL (11.7-16.6) 04/19/22 02:15 Hct 46.2 % (42.0-52.0) 04/19/22 02:15 MCV 80.3 fl (80-94) 04/19/22 02:15 MCH 27.5 pg (28.0-34.0) L 04/19/22 02:15 MCHC 34.2 g/dL (30.0-36.0) 04/19/22 02:15 RDW 14.8 % (12.1-15.1) 04/19/22 02:15 Plt Count 305 10^3/cmm (130-400) 04/19/22 02:15 MPV 9.8 fL (7.4-10.4) 04/19/22 02:15 Neut % (Auto) 72.7 % 04/19/22 02:15 Lymph % (Auto) 16.7 % 04/19/22 02:15 Roosevelt % (Auto) 7.9 % 04/19/22 02:15 Eos % (Auto) 1.5 % 04/19/22 02:15 Baso % (Auto) 0.8 % 04/19/22 02:15 Neut # (Auto) 10.47 10^3/uL (1.8-7.7) H 04/19/22 02:15 Lymph # (Auto) 2.4 10^3/uL (0.8-4.8) 04/19/22 02:15 Roosevelt # (Auto) 1.1 10^3/uL (0.2-0.9) H 04/19/22 02:15 Eos # (Auto) 0.2 10^3/uL (0.0-0.8) 04/19/22 02:15 Baso # (Auto) 0.1 10^3/uL (0.0-0.1) 04/19/22 02:15 Nucleated RBC % (auto) 0 % 04/19/22 02:15 Nucleated RBCs # 0.0 /100WBC 04/19/22 02:15 Sodium 142 mmol/L (136-145) 04/19/22 02:15 Potassium 3.6 mmol/L (3.5-5.1) 04/19/22 02:15 Chloride 104 mmol/L (98-107) 04/19/22 02:15 Carbon Dioxide 22 mmol/L (22-29) 04/19/22 02:15 Anion Gap 19.6 (5-19) H 04/19/22 02:15 BUN 23 mg/dL (6-20) H 04/19/22 02:15 Creatinine 1.1 mg/dL (0.7-1.2) 04/19/22 02:15 GFR Calculation 76.2 mL/min (90-130) L 04/19/22 02:15 Glucose 121 mg/dL (65-115) H 04/19/22 02:15 Calculated Osmolality 299 mOsm/kg (285-295) H 04/19/22 02:15 Calcium 10.0 mg/dL (8.5-10.5) 04/19/22 02:15 Total Bilirubin 0.8 mg/dL (0.15-1.2) 04/19/22 02:15 AST 22 U/L (0-40) 04/19/22 02:15 ALT 12 U/L (0-41) 04/19/22 02:15 Alkaline Phosphatase 79 IU/L (40-130) 04/19/22 02:15 Troponin T Baseline 6 ng/L (0-15) 04/19/22 02:15 Troponin T 120 Minute 6.00 ng/L (0-15) 04/19/22 03:59 Delta Troponin T 0 ABS# (0-10) 04/19/22 03:59 Total Protein 8.4 g/dL (6.6-8.7) 04/19/22 02:15 Albumin 5.4 g/dL (3.5-5.2) H 04/19/22 02:15 Globulin 3.0 g/dL (1.3-4.6) 04/19/22 02:15 Lipase 33 U/L (13-60) 04/19/22 02:15 Discharge Plan Discharge Patient Disposition: Home Clinical Impression: Chest pain, Vomiting Condition: Stable Prescriptions: New ondansetron 4 mg film 4 mg PO DAILY PRN (Reason: nausea and vomiting) Qty: 10 0RF No Action sucralfate [Carafate] 1 gram tablet 1 g PO BID PRN (Reason: heartburn) Qty: 60 2RF clarithromycin 500 mg tablet 500 mg PO BID 14 Days Qty: 28 0RF amoxicillin 500 mg tablet 1,000 mg PO BID 14 Days Qty: 56 0RF pantoprazole [Protonix] 40 mg tablet,delayed release (DR/EC) 40 mg PO BID 14 Days Qty: 28 0RF Discharge Orders: Discharge ED (Routine); Ordered 04/19/22 Ordered By: Sekou Ceballos Referrals: Bishop Naqvi DO [Primary Care Provider] - 1-3 days Patient Instructions: Chest Pain (ED), Vomiting - Adult Activity Restrictions/Additional Instructions: Testing did not reveal a cause of your chest or abdominal pain or vomiting this morning. Return for vomiting liquids despite treatment, fever greater than 100, blood in the stool or vomit, other concerning symptoms. Take the medication prescribed every 6 hours for the next 24 hours, then as needed. Sign Out Sign Out Data: Patient Sign Out occurred on 04/19/22 at 06:19. Patient's care was discussed, and care was transferred from to Taurus George MD. Coding Level of Care Code ED [facility]ist[facility] for Chg Fwd Exam Comprehensive Documented by User: Sekou Ceballos, DO 04/20/22 15:25 HPI - Abdominal Pain General: Chief Complaint: Nausea/Vomiting/Diarrhea Stated Complaint: cp Time Seen by Provider: 04/19/22 02:11 PFSH ED PFSH: Surgical History History of colonoscopy 15 years History of esophagogastroduodenoscopy (04/08/22) S/P gastric surgery patient not sure of details but for bleeding - done laparoscopic Social History Smoking and tobacco status: current every day smoker cigarettes Packs smoked per day: 0.5 Alcohol intake: current Alcohol intake frequency: few times a week Course Vital Signs: Vital signs: Vital Signs Temperature 98.7 F 04/19/22 02:03 Pulse Rate 63 04/19/22 06:25 Respiratory Rate 16 04/19/22 06:25 Blood Pressure 134/90 04/19/22 06:25 Pulse Oximetry 98 04/19/22 06:25 MDM - Abdominal Pain Medical Decision Making Signout in error, please see documentation by Dr. Ceballos. I performed the initial history physical exam and lab work-up of patient. Labs and imaging were pending. Patient was signed over to Dr. Ceballos at the end of my shift. Dr. Ceballos managed the rest of patient's care and dispo plan. This patient was originally seen by Mr. Nasim PA-C. I agree with his history, evaluation, and treatment. The patient was checked out to me at change of shift. EKG reveals sinus bradycardia with no acute St changes. Trop remained normal at 2 hours. Chest X ray is negative. Abdominal CT is also negative. No cause for his symptoms identified. He will continue to treat his gastritis. His nausea and vomiting were controlled with the Khadijah haloperidol in the ER. Outpatient follow up. Lab Data : 04/19/22 02:15 04/19/22 02:15 Labs/Radiology: Radiology Impressions Chest X-Ray 04/19/22 01:55 IMPRESSION: No acute cardiopulmonary abnormality. Abdomen/Pelvis CT 04/19/22 03:27 IMPRESSION: No acute abdominopelvic abnormality identified. Laboratory Results WBC 14.4 10^3/uL (4.0-10.0) H 04/19/22 02:15 RBC 5.75 10^6/uL (4.1-5.3) H 04/19/22 02:15 Hgb 15.8 g/dL (11.7-16.6) 04/19/22 02:15 Hct 46.2 % (42.0-52.0) 04/19/22 02:15 MCV 80.3 fl (80-94) 04/19/22 02:15 MCH 27.5 pg (28.0-34.0) L 04/19/22 02:15 MCHC 34.2 g/dL (30.0-36.0) 04/19/22 02:15 RDW 14.8 % (12.1-15.1) 04/19/22 02:15 Plt Count 305 10^3/cmm (130-400) 04/19/22 02:15 MPV 9.8 fL (7.4-10.4) 04/19/22 02:15 Neut % (Auto) 72.7 % 04/19/22 02:15 Lymph % (Auto) 16.7 % 04/19/22 02:15 Roosevelt % (Auto) 7.9 % 04/19/22 02:15 Eos % (Auto) 1.5 % 04/19/22 02:15 Baso % (Auto) 0.8 % 04/19/22 02:15 Neut # (Auto) 10.47 10^3/uL (1.8-7.7) H 04/19/22 02:15 Lymph # (Auto) 2.4 10^3/uL (0.8-4.8) 04/19/22 02:15 Roosevelt # (Auto) 1.1 10^3/uL (0.2-0.9) H 04/19/22 02:15 Eos # (Auto) 0.2 10^3/uL (0.0-0.8) 04/19/22 02:15 Baso # (Auto) 0.1 10^3/uL (0.0-0.1) 04/19/22 02:15 Nucleated RBC % (auto) 0 % 04/19/22 02:15 Nucleated RBCs # 0.0 /100WBC 04/19/22 02:15 Sodium 142 mmol/L (136-145) 04/19/22 02:15 Potassium 3.6 mmol/L (3.5-5.1) 04/19/22 02:15 Chloride 104 mmol/L (98-107) 04/19/22 02:15 Carbon Dioxide 22 mmol/L (22-29) 04/19/22 02:15 Anion Gap 19.6 (5-19) H 04/19/22 02:15 BUN 23 mg/dL (6-20) H 04/19/22 02:15 Creatinine 1.1 mg/dL (0.7-1.2) 04/19/22 02:15 GFR Calculation 76.2 mL/min (90-130) L 04/19/22 02:15 Glucose 121 mg/dL (65-115) H 04/19/22 02:15 Calculated Osmolality 299 mOsm/kg (285-295) H 04/19/22 02:15 Calcium 10.0 mg/dL (8.5-10.5) 04/19/22 02:15 Total Bilirubin 0.8 mg/dL (0.15-1.2) 04/19/22 02:15 AST 22 U/L (0-40) 04/19/22 02:15 ALT 12 U/L (0-41) 04/19/22 02:15 Alkaline Phosphatase 79 IU/L (40-130) 04/19/22 02:15 Troponin T Baseline 6 ng/L (0-15) 04/19/22 02:15 Troponin T 120 Minute 6.00 ng/L (0-15) 04/19/22 03:59 Delta Troponin T 0 ABS# (0-10) 04/19/22 03:59 Total Protein 8.4 g/dL (6.6-8.7) 04/19/22 02:15 Albumin 5.4 g/dL (3.5-5.2) H 04/19/22 02:15 Globulin 3.0 g/dL (1.3-4.6) 04/19/22 02:15 Lipase 33 U/L (13-60) 04/19/22 02:15 Discharge Plan Discharge Patient Disposition: Home Clinical Impression: Chest pain, Vomiting Condition: Stable Prescriptions: New ondansetron 4 mg film 4 mg PO DAILY PRN (Reason: nausea and vomiting) Qty: 10 0RF No Action sucralfate [Carafate] 1 gram tablet 1 g PO BID PRN (Reason: heartburn) Qty: 60 2RF clarithromycin 500 mg tablet 500 mg PO BID 14 Days Qty: 28 0RF amoxicillin 500 mg tablet 1,000 mg PO BID 14 Days Qty: 56 0RF pantoprazole [Protonix] 40 mg tablet,delayed release (DR/EC) 40 mg PO BID 14 Days Qty: 28 0RF Discharge Orders: Discharge ED (Routine); Ordered 04/19/22 Ordered By: Sekou Ceballos Referrals: Bishop Naqvi DO [Primary Care Provider] - 1-3 days Patient Instructions: Chest Pain (ED), Vomiting - Adult Activity Restrictions/Additional Instructions: Testing did not reveal a cause of your chest or abdominal pain or vomiting this morning. Return for vomiting liquids despite treatment, fever greater than 100, blood in the stool or vomit, other concerning symptoms. Take the medication prescribed every 6 hours for the next 24 hours, then as needed. Sign Out Sign Out Data: Patient Sign Out occurred on 04/19/22 at 06:19. Patient's care was discussed, and care was transferred from to Taurus Geroge MD. Coding Level of Care Code ED [facility] Registrar for Rafiq Fwd Exam Comprehensive
[2022-04-19] MEDS: ondansetron 2 mg/ML SDV 2 mL 4 MG IVP (02:27)
[2022-04-19 02:33] VITALS: RESP 20
[2022-04-19] MEDS: morphine 4 mg/mL SDV 1 mL IVP (02:33)
[2022-04-19] MEDS: haloperidol inj 5 mg/mL INJ 1 mL 3 MG IVP (02:38)
[2022-04-19 02:41] LABS: Alanine Aminotransferase 12 U/L (0-41); Albumin Level 5.4 g/dL (3.5-5.2); Alkaline Phosphatase 79 IU/L (40-130); Anion Gap 19.6 (5-19); Aspartate Amino Transferase 22 U/L (0-40); Blood Urea Nitrogen 23 mg/dL (6-20); Carbon Dioxide 22 mmol/L (22-29); Chloride 104 mmol/L (98-107); Glomerular Filtration Rate 76.2 mL/min (90-130); Glucose 121 mg/dL (65-115); Lipase 33 U/L (13-60); Osmolality Calculated 299 mOsm/kg (285-295); Potassium 3.6 mmol/L (3.5-5.1); Sodium 142 mmol/L (136-145); Total Bilirubin 0.8 mg/dL (0.15-1.2); Total Protein 8.4 g/dL (6.6-8.7)
[2022-04-19 02:42] LABS: Troponin(5th) Baseline 6 ng/L (0-15)
--- NOTE | 2022-04-19 03:27 | CTR_ITS ---
PROCEDURE INFORMATION: Exam: CT Abdomen And Pelvis With Contrast Exam date and time: 04/19/2022 4:35 AM Age: 37 years old Clinical indication: Abdominal pain; Epigastric; Additional info: Epigastric abdominal pain TECHNIQUE: Imaging protocol: Computed tomography of the abdomen and pelvis with contrast. Radiation optimization: All CT scans at this facility use at least one of these dose optimization techniques: automated exposure control; mA and/or kV adjustment per patient size (includes targeted exams where dose is matched to clinical indication); or iterative reconstruction. Contrast material: OMNI 350; Contrast volume: 98 ml; Contrast route: INTRAVENOUS (IV); COMPARISON: CT abdomen pelvis w con* [id number] 10/10/2021 2:39 AM RADIATION DOSE METRICS: Total DLP (mGy-cm): 1355.04 FINDINGS: Lungs: The visualized lung bases demonstrate no focal airspace opacification or pleural effusion. Heart: The visualized heart is within normal limits for size. There is no evidence of pericardial abnormality. Liver: The liver is normal in size and contour. Gallbladder and bile ducts: The gallbladder is distended with normal wall thickness and does not demonstrate calcified gallstones. No intra- or extra-hepatic biliary ductal dilatation. Pancreas: The pancreas appears normal. Spleen: The spleen appears normal. Adrenal glands: The adrenals appear normal. Kidneys and ureters: The kidneys enhance symmetrically and empty into non-dilated ureters. Stomach and bowel: Postsurgical changes in the stomach noted. Appendix: The appendix appears normal. Intraperitoneal space: No ascites or significant fluid collection. Vasculature: The aorta is nonaneurysmal. The IVC appears normal. Lymph nodes: There are no enlarged lymph nodes. Urinary bladder: The bladder is distended and demonstrates no focal contour abnormality. Reproductive: Unremarkable as visualized. Bones/joints: Unremarkable. Soft tissues: Unremarkable. CT/CT abdomen pelvis w con* [id number] IMPRESSION: No acute abdominopelvic abnormality identified.
--- NOTE | 2022-04-19 03:56 | ECG_ITS ---
[facility] Test Date: 2022-04-19 Pat Name: Wilfrid Carlin Department: Room: Gender: Male C4 Planner: : 1985 Requested By: Caden Rouse Order Number: [id number] Adalgisa MD: Berny Trejo M.D. Measurements Intervals [place] Rate: 67 P: 64 DC: 132 QRS: 93 QRSD: 108 T: 85 QT: 417 QTc: 440 Interpretive Statements SINUS RHYTHM BORDERLINE RIGHT AXIS DEVIATION [QRS AXIS > 90] Compared to ECG 04/19/2022 02:09:10 Intraventricular conduction delay no longer present Electronically Signed On 04-19-2022 8:40:09 CDT by Berny Trejo M.D. [id number]
--- NOTE | 2022-04-19 04:05 | PC.NURSE ---
EKG and trop drawn at 0400 and shown to ER doctor.
[2022-04-19 04:35] LABS: Troponin 5 2HR Delta 0 ABS# (0-10)
[2022-04-19] MEDS: iohexol 350 mg/mL 100 mL Btl IV (04:45)
[2022-04-19 04:53] VITALS: BP 136/76; PULSE 62; RESP 18; O2SAT 98
[2022-04-19 06:00] VITALS: BP 134/90; PULSE 63; RESP 16; O2SAT 98
[2022-04-19 06:25] VITALS: BP 134/90; PULSE 63; RESP 16; O2SAT 98
== END 2022-04-19 06:26 | disposition home or self-care (01) ==
PROVIDERS: Physician Assistant; Emergency Provider Emergency Medicine; PCP Family Medicine
DX: R07.9 Chest pain, unspecified (principal); R11.11 Vomiting without nausea; F17.210 Nicotine dependence, cigarettes, uncomplicated
CPT/HCPCS: 71045; 74177; 80053; 83690; 84484; 85025; 93005; 96374; 96375; 99285; J1630; J2270; J2405; Q9967

== ENCOUNTER 2022-08-29 19:21 | Emergency (ER) | payer SELFPAY ==
[2022-08-29 19:38] VITALS: BP 153/105; PULSE 111; RESP 24; TEMP 36.7; O2SAT 96
--- NOTE | 2022-08-29 19:38 | XRR_ITS ---
PROCEDURE INFORMATION: Exam: XR Chest Exam date and time: 08/29/2022 9:01 PM Age: 37 years old Clinical indication: Pain; Chest pressure; Additional info: Cp vomiting TECHNIQUE: Imaging protocol: Radiologic exam of the chest. Views: 1 view. COMPARISON: CR (CHEST, ) 04/19/2022 2:48 AM FINDINGS: Lungs: Unremarkable. No consolidation. Pleural spaces: Unremarkable. No pleural effusion. No pneumothorax. Heart/Mediastinum: Unremarkable. No cardiomegaly. Bones/joints: Unremarkable. XR/XR chest 1V portable [id number] IMPRESSION: No acute findings.
[2022-08-29] MEDS: sodium chloride 0.9% 1,000 ML 999 ML IV ×2 (19:40→21:36)
[2022-08-29] MEDS: haloperidol inj 5 mg/mL INJ 1 mL IVP (19:41)
--- NOTE | 2022-08-29 19:41 | W.ED.NAVMDI ---
HPI - Nausea/Vomiting/Diarrhea General: Chief complaint: Nausea/Vomiting/Diarrhea Stated complaint: Chest Pain Time Seen by Provider: 08/29/22 19:32 Source: patient History of Present Illness: 37-year-old male with a history of GERD. He presents for epigastric pain radiating into his chest, and vomiting. He is dry heaving in triage and in the ER room. He denies any fever. MD elicited complaint: nausea, vomiting and abdominal pain Onset (ago): hour(s) Description of vomiting: food contents Associated nausea: Yes Associated abdominal pain: Yes Location of pain: Chest and Epigastric Radiation: diffuse Pain consistency: constant Severity: moderate Quality: cramping Exacerbating factors: vomiting Relieving factors: none Associated symtoms: Reports chest pain, diaphoresis and nausea; Denies altered mental status, cough, fevers/chills, headache(s), anorexia or syncope Review of Systems Const: Reports: diaphoresis; Denies: fever(s) ENMT: Reports: throat pain Card: Reports: chest pain; Denies: syncope Resp: Denies: dyspnea, productive cough or non-productive cough GI: Reports: abdominal pain, nausea and vomiting; Denies: diarrhea Neuro: Denies: headache(s) PFSH ED PFSH: Surgical History History of colonoscopy 15 years History of esophagogastroduodenoscopy (04/08/22) S/P gastric surgery patient not sure of details but for bleeding - done laparoscopic Social History Smoking and tobacco status: current every day smoker cigarettes Packs smoked per day: 0.5 Alcohol intake: current Alcohol intake frequency: few times a week Physical Exam Const: EXAM LIMITATIONS: no altered mental status GENERAL APPEARANCE: cooperative, in distress and ill appearing; not frail appearing HENMT: COMMON NORMALS: normocephalic, atraumatic and Normal external nose present HEAD & SCALP: normocephalic and atraumatic NOSE: Normal external nose present Eye: COMMON NORMALS: Equal, round and reactive pupils present and EOMs intact bilaterally PUPIL: Yes Equal, round and reactive pupils present Neck/C-Spine: GENERAL: Yes trachea midline Chest: CHEST: Yes Symmetrical chest wall rise Resp: COMMON NORMALS: normal respiratory effort, No use of accessory muscles and clear to auscultation bilaterally AUSCULTATION: clear to auscultation bilaterally Cardio: COMMON NORMALS: regular rate and regular rhythm RATE: regular rate RHYTHM: regular rhythm GI: COMMON NORMALS: Normal to inspection, nondistended, normoactive bowel sounds present and Soft to palpation PALPATION: Yes Soft to palpation and Yes Tenderness to palpation present (GI) (Epigastric) Extremity: COMMON NORMALS: no pedal edema Neuro: BOB COMA SCALE: document GCS findings [place] coma scale eye opening: Spontaneous Bob coma scale verbal response: Orientated Bob coma scale motor response: Obey commands Bob coma scale total score: 15 Course Vital Signs: Vital signs: Vital Signs Temperature 98.0 F 08/29/22 19:38 Pulse Rate 54 L 08/29/22 21:48 Respiratory Rate 18 08/29/22 19:59 Blood Pressure 124/94 08/29/22 21:48 Pulse Oximetry 99 08/29/22 21:48 Oxygen Delivery Me thod 08/29/22 21:48 MDM - Nausea/Vomiting/Diarrhea Medical Decision Making This patient has been resting comfortably with no further episodes of vomiting or retching after administration of pain medication and antiemetic (Haldol). He is hemoconcentrated, and is given 2 L of fluid. His BMP is benign. Liver enzymes are not remarkable. Troponin is 6 at baseline and 7.55 at 2 hours. His alcohol level is less than 10. Lipase is 49. Chest x-ray is negative. CT of the abdomen and pelvis is nonacute. With resolution of his symptoms here, he will be discharged to home. Because of fear of return of symptoms, he will be prescribed Thorazine 3 times daily scheduled for the next 24 hours to keep nausea and vomiting and they, and then as needed. We discussed the potential for marijuana to make this condition worse. Follow-up was encouraged Lab Data : 08/29/22 19:38 08/29/22 19:38 Radiology Impressions Chest X-Ray 08/29/22 19:38 IMPRESSION: No acute findings. Abdomen/Pelvis CT 08/29/22 19:53 IMPRESSION: No acute findings. Laboratory Results WBC 15.7 10^3/uL (4.0-10.0) H 08/29/22 19:38 RBC 6.21 10^6/uL (4.1-5.3) H 08/29/22 19:38 Hgb 17.2 g/dL (11.7-16.6) H 08/29/22 19:38 Hct 52.3 % (42.0-52.0) H 08/29/22 19:38 MCV 84.2 fl (80-94) 08/29/22 19:38 MCH 27.7 pg (28.0-34.0) L 08/29/22 19:38 MCHC 32.9 g/dL (30.0-36.0) 08/29/22 19:38 RDW 15.9 % (12.1-15.1) H 08/29/22 19:38 Plt Count 315 10^3/cmm (130-400) 08/29/22 19:38 MPV 10.1 fL (7.4-10.4) 08/29/22 19:38 Neut % (Auto) 70.8 % 08/29/22 19: Lymph % (Auto) 18.2 % 08/29/22 19:38 [place] % (Auto) 9.9 % 08/29/22 19:38 Eos % (Auto) 0.2 % 08/29/22 19:38 Baso % (Auto) 0.5 % 08/29/22 19:38 Neut # (Auto) 11.14 10^3/uL (1.8-7.7) H 08/29/22 19:38 Lymph # (Auto) 2.9 10^3/uL (0.8-4.8) 08/29/22 19:38 [place] # (Auto) 1.6 10^3/uL (0.2-0.9) H 08/29/22 19:38 Eos # (Auto) 0.0 10^3/uL (0.0-0.8) 08/29/22 19:38 Baso # (Auto) 0.1 10^3/uL (0.0-0.1) 08/29/22 19:38 Nucleated RBC % (auto) 0 % 08/29/22 19: Nucleated RBCs # 0.0 /100WBC 08/29/22 19:38 Sodium 134 mmol/L (136-145) L 08/29/22 19:38 Potassium 3.6 mmol/L (3.5-5.1) 08/29/22 19:38 Chloride 96 mmol/L (98-107) L 08/29/22 19:38 Carbon Dioxide 22 mmol/L (22-29) 08/29/22 19:38 Anion Gap 19.6 (5-19) H 08/29/22 19:38 BUN 20 mg/dL (6-20) 08/29/22 19:38 Creatinine 1.2 mg/dL (0.7-1.2) 08/29/22 19:38 GFR Calculation 68.9 mL/min (90-130) L 08/29/22 19:38 Glucose 120 mg/dL (65-115) H 08/29/22 19:38 Calculated Osmolality 282 mOsm/kg (285-295) L 08/29/22 19:38 Calcium 10.6 mg/dL (8.5-10.5) H 08/29/22 19:38 Total Bilirubin 1.3 mg/dL (0.15-1.2) H 08/29/22 19:38 AST 32 U/L (0-40) 08/29/22 19:38 ALT 14 U/L (0-41) 08/29/22 19:38 Alkaline Phosphatase 91 U/L (40-130) 08/29/22 19:38 Creatine Kinase 341 U/L (39-308) H* 08/29/22 19:38 Troponin T Baseline 6 ng/L (0-15) 08/29/22 19:38 Troponin T 120 Minute 7.55 ng/L (0-15) 08/29/22 21:35 Delta Troponin T 1.55 ABS# (0-10) 08/29/22 21:35 Total Protein 8.6 g/dL (6.6-8.7) 08/29/22 19:38 Albumin 5.5 g/dL (3.5-5.2) H 08/29/22 19:38 Globulin 3.1 g/dL (1.3-4.6) 08/29/22 19:38 Lipase 49 U/L (13-60) 08/29/22 19:38 Ethyl Alcohol < 10 mg/dL (0-10) 08/29/22 19:38 Discharge Plan Discharge Patient Disposition: Home Clinical Impression: Vomiting, Gastritis Condition: Stable Prescriptions: New chlorpromazine 25 mg tablet 25 mg PO TID Qty: 10 0RF No Action sucralfate [Carafate] 1 gram tablet 1 g PO BID PRN (Reason: heartburn) Qty: 60 2RF clarithromycin 500 mg tablet 500 mg PO BID 14 Days Qty: 28 0RF amoxicillin 500 mg tablet 1,000 mg PO BID 14 Days Qty: 56 0RF pantoprazole 40 mg tablet,delayed release (DR/EC) See Rx Instructions .ROUTE .COMPLEX Qty: 28 0RF Dose Instruction: Take 1 tablet by mouth twice daily for 14 days Rx Instructions: Take 1 tablet by mouth twice daily for 14 days ondansetron 4 mg film 4 mg PO DAILY PRN (Reason: nausea and vomiting) Qty: 10 0RF Discharge Orders: Discharge ED (Routine); Ordered 08/29/22 Ordered By: Sekou Ceballos Patient Instructions: Gastritis (ED), Vomiting - Adult Activity Restrictions/Additional Instructions: Take the medication prescribed 3 times daily scheduled for the next 24 hours. After that you may take as needed for pain or nausea/vomiting. Return for fever greater than 100, continuing to vomit liquids or medications despite treatment, other concerning symptoms. Follow-up with your doctor. Coding Level of Care Code ED Financial Advisor Trainee for Rafiq Fwd Exam Comprehensive
--- NOTE | 2022-08-29 19:43 | ECG_ITS ---
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 Measurements Intervals [place] Rate: 60 P: 12 ME: 142 QRS: 87 QRSD: 113 T: 65 QT: 428 QTc: 429 Interpretive Statements SINUS RHYTHM MODERATE INTRAVENTRICULAR CONDUCTION DELAY [110+ ms QRS DURATION] Compared to ECG 04/19/2022 04:02:24 Intraventricular conduction delay now present Electronically Signed On 08-30-2022 22:12:01 ARMATURE STRAIGHTENER by Prasad Brock M.D. [id number]
[2022-08-29 19:45] LABS: Basophils # 0.1 10^3/uL (0.0-0.1); Basophils % 0.5 %; Eosinophils % 0.2 %; Hematocrit 52.3 % (42.0-52.0); Hemoglobin 17.2 g/dL (11.7-16.6); Lymphocytes # 2.9 10^3/uL (0.8-4.8); Lymphocytes % 18.2 %; Mean Corpuscular HGB Conc 32.9 g/dL (30.0-36.0); Mean Corpuscular Hemoglobin 27.7 pg (28.0-34.0); Mean Corpuscular Volume 84.2 fl (80-94); Mean Platelet Volume 10.1 fL (7.4-10.4); Monocytes # 1.6 10^3/uL (0.2-0.9); Monocytes % 9.9 %; Neutrophils # 11.14 10^3/uL (1.8-7.7); Neutrophils % 70.8 %; Nucleated Red Blood Cells % 0 %; Platelet Count 315 10^3/cmm (130-400); Red Blood Count 6.21 10^6/uL (4.1-5.3); Red Cell Distribution Width 15.9 % (12.1-15.1); White Blood Count 15.7 10^3/uL (4.0-10.0)
[2022-08-29] MEDS: ondansetron 2 mg/ML SDV 2 mL 4 MG IVP (19:47)
--- NOTE | 2022-08-29 19:53 | CTR_ITS ---
PROCEDURE INFORMATION: Exam: CT Abdomen And Pelvis With Contrast Exam date and time: 08/29/2022 8:04 PM Age: 37 years old Clinical indication: Abdominal pain; Additional info: Epigastric pain TECHNIQUE: Imaging protocol: Computed tomography of the abdomen and pelvis with contrast. Radiation optimization: All CT scans at this facility use at least one of these dose optimization techniques: automated exposure control; mA and/or kV adjustment per patient size (includes targeted exams where dose is matched to clinical indication); or iterative reconstruction. Contrast material: OMNIPAQUE 350; Contrast volume: 100 ml; Contrast route: INTRAVENOUS (IV); COMPARISON: CT abdomen pelvis w con* [id number] 04/19/2022 4:35 AM RADIATION DOSE METRICS: Total DLP (mGy-cm): 816.63 FINDINGS: Liver: Normal. No mass. Gallbladder and bile ducts: Normal. No calcified stones. No ductal dilation. Pancreas: Normal. No ductal dilation. Spleen: Normal. No splenomegaly. Adrenal glands: Normal. No mass. Kidneys and ureters: Normal. No hydronephrosis. Stomach and bowel: Unremarkable. No obstruction. No mucosal thickening. Appendix: No evidence of appendicitis. Intraperitoneal space: Unremarkable. No free air. No significant fluid collection. Vasculature: Unremarkable. No abdominal aortic aneurysm. Lymph nodes: Unremarkable. No enlarged lymph nodes. Urinary bladder: Unremarkable as visualized. Reproductive: Unremarkable as visualized. Bones/joints: Unremarkable. No acute fracture. Soft tissues: Unremarkable. CT/CT abdomen pelvis w con* [id number] IMPRESSION: No acute findings.
[2022-08-29 19:59] VITALS: RESP 18; O2SAT 97
[2022-08-29] MEDS: HYDROmorphone 1 mg/mL INJ 1 mL IVP (19:59)
[2022-08-29 20:05] LABS: Troponin(5th) Baseline 6 ng/L (0-15)
[2022-08-29 20:07] LABS: Alanine Aminotransferase 14 U/L (0-41); Albumin Level 5.5 g/dL (3.5-5.2); Alkaline Phosphatase 91 U/L (40-130); Anion Gap 19.6 (5-19); Aspartate Amino Transferase 32 U/L (0-40); Blood Urea Nitrogen 20 mg/dL (6-20); Calcium 10.6 mg/dL (8.5-10.5); Carbon Dioxide 22 mmol/L (22-29); Chloride 96 mmol/L (98-107); Globulin 3.1 g/dL (1.3-4.6); Glomerular Filtration Rate 68.9 mL/min (90-130); Glucose 120 mg/dL (65-115); Lipase 49 U/L (13-60); Osmolality Calculated 282 mOsm/kg (285-295); Potassium 3.6 mmol/L (3.5-5.1); Sodium 134 mmol/L (136-145); Total Bilirubin 1.3 mg/dL (0.15-1.2); Total Protein 8.6 g/dL (6.6-8.7)
[2022-08-29] MEDS: iohexol 350 mg/mL 500 mL Btl (per mL) IV (20:07)
[2022-08-29 20:08] LABS: Alcohol Level < 10 mg/dL (0-10)
[2022-08-29 20:09] LABS: Creatine Phosphokinase 341 U/L (39-308)
--- NOTE | 2022-08-29 21:32 | ECG_ITS ---
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 Measurements Intervals [place] Rate: 56 P: 17 MI: 143 QRS: 93 QRSD: 111 T: 70 QT: 475 QTc: 459 Interpretive Statements SINUS BRADYCARDIA BORDERLINE RIGHT AXIS DEVIATION [QRS AXIS > 90] MODERATE INTRAVENTRICULAR CONDUCTION DELAY [110+ ms QRS DURATION] PROLONGED QT INTERVAL Compared to ECG 08/29/2022 19:43:15 Prolonged QT interval now present Sinus rhythm no longer present Electronically Signed On 08-30-2022 22:24:32 AGRICULTURAL ENGINEER by Prasad Brock M.D. [id number]
[2022-08-29 21:48] VITALS: BP 124/94; PULSE 54; O2SAT 99
[2022-08-29 22:09] LABS: Troponin 5 2HR 7.55 ng/L (0-15)
[2022-08-29 22:26] LABS: Troponin 5 2HR Delta 1.55 ABS# (0-10)
[2022-08-29 23:03] VITALS: BP 112/69; PULSE 61; RESP 16; O2SAT 98
== END 2022-08-29 23:00 | disposition home or self-care (01) ==
PROVIDERS: Emergency Provider Emergency Medicine
DX: K29.70 Gastritis, unspecified, without bleeding (principal); F17.210 Nicotine dependence, cigarettes, uncomplicated
CPT/HCPCS: 36415; 71045; 74177; 80053; 80307; 82550; 83690; 84484; 85025; 93005; 96361; 96374; 96375; 99285; J1170; J1630; J2405; J7030; Q9967

== ENCOUNTER 2022-08-31 10:15 | Emergency (ER) | payer SELFPAY ==
[2022-08-31 10:28] VITALS: BP 149/101; PULSE 77; RESP 17; O2SAT 97
--- NOTE | 2022-08-31 10:44 | US_ITS ---
WS: [id number] ULTRASOUND ABDOMEN LIMITED CLINICAL INFORMATION: RUQ abd pain COMPARISON: None. FINDINGS: Liver Size: Upper limits of normal Craniocaudal length: 16.1 cm. Echogenicity: Normal. Surface nodularity: None. Mass (size and location): None. Bile ducts Intrahepatic ducts: Normal. Common bile duct diameter: 0.4 cm. Gallbladder Sludge Gallstones: None. Gallbladder sludge: Present Gallbladder wall thickening: None. Pericholecystic fluid: None. Sonographic Luis sign: Absent. Pancreas Normal as visualized. Right kidney: Normal. Hydronephrosis: None. Size: 11.0 cm x 4.7 cm x 4.0 cm. Abdominal aorta and IVC Visualized portions are normal. Ascites: None. US/US gall bladder [id number] IMPRESSION: 1. Gallbladder sludge. No gallbladder wall thickening or pericholecystic fluid . 2. Liver size upper limits of normal. 3. Otherwise normal RIGHT upper quadrant ultrasound.
--- NOTE | 2022-08-31 10:47 | CT_ITS ---
WS: [id number] CT ABDOMEN PELVIS TECHNIQUE: Contrast-enhanced CT of the abdomen and pelvis with coronal and sagittal reformatted image s. CLINICAL INFORMATION: abd pain COMPARISON: August 29, 2022 DLP: 437.[address] scans at [facility] use at least one of these dose optimization techniques: automated e xposure control; mA and/or kV adjustment per patient size (includes targeted exams where dose is matc hed to clinical indication); or iterative reconstruction. FINDINGS: Lung bases are well aerated. Normal liver. Normal portal vein and splenic vein. Prior postoperative c hanges gastric bypass. Vicarious excretion of contrast in the gallbladder. Adrenal glands are normal. Normal renal parenchymal enhancement. No hydronephrosis. Normal caliber abdominal aorta. Fat-contain ing umbilical hernia. Sigmoid diverticulosis. No evidence of acute diverticulitis. No abdominal or pelvic lymphadenopathy. No inguinal lymphadenopathy. CT/CT abdomen pelvis w con* [id number] IMPRESSION: 1. Vicarious excretion of contrast in the gallbladder. Gallbladder is otherwis e unchanged. 2. Mild diffuse fatty infiltration the liver. 3. No hydronephrosis in either kidney. 4. No significant changes compared to previous.
[2022-08-31 10:52] LABS: Basophils # 0.1 10^3/uL (0.0-0.1); Basophils % 0.7 %; Eosinophils # 0.1 10^3/uL (0.0-0.8); Eosinophils % 1.1 %; Hemoglobin 14.7 g/dL (11.7-16.6); Lymphocytes # 2.2 10^3/uL (0.8-4.8); Lymphocytes % 23.8 %; Mean Corpuscular HGB Conc 32.7 g/dL (30.0-36.0); Mean Corpuscular Hemoglobin 27.3 pg (28.0-34.0); Mean Corpuscular Volume 83.6 fl (80-94); Mean Platelet Volume 10.3 fL (7.4-10.4); Monocytes # 0.9 10^3/uL (0.2-0.9); Monocytes % 9.7 %; Neutrophils # 5.86 10^3/uL (1.8-7.7); Neutrophils % 64.3 %; Nucleated Red Blood Cells % 0 %; Platelet Count 253 10^3/cmm (130-400); Red Blood Count 5.38 10^6/uL (4.1-5.3); Red Cell Distribution Width 15.1 % (12.1-15.1); White Blood Count 9.1 10^3/uL (4.0-10.0)
[2022-08-31 11:03] VITALS: BP 144/109; PULSE 62; O2SAT 95
[2022-08-31 11:08] LABS: Alanine Aminotransferase 16 U/L (0-41); Albumin Level 4.6 g/dL (3.5-5.2); Alkaline Phosphatase 68 U/L (40-130); Anion Gap 15.4 (5-19); Aspartate Amino Transferase 21 U/L (0-40); Blood Urea Nitrogen 13 mg/dL (6-20); Calcium 9.6 mg/dL (8.5-10.5); Carbon Dioxide 25 mmol/L (22-29); Chloride 97 mmol/L (98-107); Creatinine Clr Calc Pharmacy 151.2941; Globulin 2.7 g/dL (1.3-4.6); Glucose 92 mg/dL (65-115); Lipase 28 U/L (13-60); Osmolality Calculated 278 mOsm/kg (285-295); Potassium 3.4 mmol/L (3.5-5.1); Sodium 134 mmol/L (136-145); Total Bilirubin 1.1 mg/dL (0.15-1.2); Total Protein 7.3 g/dL (6.6-8.7)
[2022-08-31] MEDS: iohexol 350 mg/mL 500 mL Btl (per mL) IV (11:19)
[2022-08-31 12:00] VITALS: BP 120/92; PULSE 56; RESP 18; O2SAT 100
[2022-08-31] MEDS: sodium chloride 0.9% 1,000 ML 999 ML IV (12:04)
[2022-08-31] MEDS: haloperidol inj 5 mg/mL INJ 1 mL 2.5 MG IVP (12:04)
[2022-08-31] MEDS: midazolam 1 mg/mL INJ 2 mL IVP (12:05)
[2022-08-31 12:09] LABS: Add Urine Microscopic? YES; Bilirubin Urine 1+ (Negative); Blood Urine Neg (Negative); Glucose Urine UA Norm (Normal); Ketones Urine 1+ (Negative); Leukocyte Esterase Urine Trace (Negative); Nitrate Urine Negative (Negative); Protein Urine 1+ (Negative); Specific Gravity, Urine 1.025 (1.005-1.030); Urine Appearance Clear (CLEAR); Urine Color Dark Yellow (Yellow); Urobilinogen Urine 4 mg/dL (Negative); pH Urine 5 (5-7)
[2022-08-31 12:10] LABS: Add Urine Culture? No; Bacteria Urine 1+ /hpf; Mucus Urine 2+ /hpf; Squamous Epithelial Cell Urine RARE /hpf (0-5); WBC Urine 0-4 /hpf (0-5)
--- NOTE | 2022-08-31 12:25 | ED_ITS ---
HPI - Abdominal Pain General: Chief Complaint: Abdominal Pain Stated Complaint: abd pain, sent by urgent care Time Seen by Provider: 08/31/22 10:17 Source: patient Mode of arrival: ambulatory History of Present Illness: 37-year-old male presents emergency room via urgent care. He was seen a couple days ago CT was done was negative he did have a elevation in his T bili at that time reviewed the notes appendix appeared normal his white count was slightly elevated thought to have cannabinoid hyperemesis syndrome. He was discharged home he followed up today 2 days later seen at the urgent care was thought he may have an acute appendicitis. Had stated he had right lower quadrant pain. When he arrived here he had more right upper quadrant pain. He was very restless constantly moving his legs while on the exam table getting up and down from the exam table thrashing around pushing on his own abdomen. Clinically presents more like he may have biliary colic or nephrolithiasis. Previous labs were reviewed his T bili had been elevated which was a new finding for him multiple previous tests have been normal. He has had 6 previous CTs of his abdomen in the emergency room in the last 2 years. MD elicited complaint: abdominal pain Onset (ago): day(s) Pain Consistency: constant Location: RUQ Severity: severe Quality: cramping Migration to: RUQ Exacerbating factors: eating Relieving factors: nothing Associated Symptoms: Reports GI cramping, dyspepsia, poor appetite and vomiting; Denies anorexia, belching, bloating, change in bowel habits, change in stool character, chills, coffee ground emesis, constipation, diarrhea, dysuria, exces sive flatus, fever(s), heartburn, hematochezia, hematuria, hematemesis, fecal incontinence, loose stools, melena, nausea and syncope Review of Systems Const: Denies: fever(s) or chills ENMT: Denies: throat pain, ear or mastoid pain, nasal discharge or nasal congestion Card: Denies: syncope Resp: Denies: dyspnea, productive cough or non-productive cough GI: Reports: vomiting and GI cramping; Denies: nausea, hematemesis, coffee ground emesis, heartburn, diarrhea, constipation, bloating, belching, excessive flatus, fecal incontinence, change in bowel habits, change in stool character, hematochezia or melena : Denies: dysuria or hematuria Skin/Breast: Denies: rash or pruritus PFSH ED PFSH: Surgical History History of colonoscopy 15 years History of esophagogastroduodenoscopy (04/08/22) S/P gastric surgery patient not sure of details but for bleeding - done laparoscopic Social History Smoking and tobacco status: current every day smoker cigarettes Packs smoked per day: 0.5 Alcohol intake: current Alcohol intake frequency: few times a week Physical Exam Const: GENERAL APPEARANCE: cooperative and comfortable ORIENTATION/CONSCIOUSNESS: Yes awake, Yes oriented to person, Yes oriented to place and Yes oriented to time HENMT: COMMON NORMALS: normocephalic, atraumatic and hearing grossly normal bilaterally HEAD & SCALP: normocephalic and atraumatic Resp: COMMON NORMALS: normal respiratory effort, No retractions, No use of accessory muscles and clear to auscultation bilaterally AUSCULTATION: clear to auscultation bilaterally Cardio: COMMON NORMALS: regular rate, regular rhythm and No murmurs present (Cardio) RATE: regular rate RHYTHM: regular rhythm GI: COMMON NORMALS: No hepatosplenomegaly present AUSCULTATION: Yes n ormoactive bowel sounds PALPATION: Yes Tenderness to palpation present (GI) Details: RUQ, No Guarding due to palpation present (GI) and Yes No hepatosplenomegaly present : COMMON NORMALS: Yes no CVA tenderness BLADDER/KIDNEY EXAM: Yes no CVA tenderness Back/Pelvis: COMMON NORMALS: no CVA tenderness Extremity: COMMON NORMALS: normal to inspection, capillary refill normal, no clubbing, cyanosis or edema, no calf tenderness and no pedal edema Neuro: SENSORIUM/ORIENTATION: Yes oriented to person, Yes oriented to place and Yes oriented to time Skin: COMMON NORMALS: no rashes or lesions noted GENERAL SKIN EXAM: no rashes or lesions noted Course Vital Signs: Vital signs: Vital Signs Pulse Rate 48 L 08/31/22 13:15 Respiratory Rate 18 08/31/22 12:00 Blood Pressure 141/85 08/31/22 12:30 Pulse Oximetry 98 08/31/22 13:15 Oxygen Delivery Me thod 08/31/22 12:00 MDM - Abdominal Pain Medical Decision Making At urgent care by report his exam seem to indicate an acute appendicitis on arrival here he looks more like he had biliary colic or a renal stone. Reviewed his previous CT there were no renal stones on the previous CT either in the kidneys or the ureters. His appendix was apparent on the previous CT although the wall is very mildly thickened according to Dr. Muniz in reviewing the old film. When I examined him he was moving about the bed up and down from bed trying to find a position of comfort and grasping his right upper quadrant on my exam as the majority of his pain was in the right upper quadrant he had minimal pain in the right lower quadrant no significant pain with percussion over the right lower quadrant. Discussing with the radiologist Dr. Muniz recommended a repeat CT with IV contrast since there was no prior stones being very unlikely he did have a renal stone. Given his body habitus the contrast would give better delineation of organs. On the CT discussed Dr. Greenberg who actually read that he does not appreciate any significant appendix abnormality. He does have some sludge on the ultrasound of his gallbladder no wall thickening. However now his bilirubin is back down to normal. His liver functions are normal. Patient given fluids Haldol and Versed (we do not have Ativan readily available due to shortage at this time). External response to these medicines feeling better. We will discharge him home with olanzapine disintegrating tablet and Ativan to use the buccal mucosa when he gets further episodes of this in the future. Reviewed labs and findings with the patient. He reports at 1 point he did have bloody bowel movements he did have EGD and colonoscopy which she tells me were negative. He may benefit from further GI evaluation. Dr. Muniz and felt there was some very subtle abnormalities that could potentially be from Crohn's. Differential Diagnosis Likely abdominal pain, acute appendicitis, calculus of kidney, constipation, diverticulitis, gastroenteritis, pancreatitis and small bowel obstruction Medical Records I reviewed the patient's medical records. Lab Data I reviewed the patient's lab results. : 08/31/22 10:35 08/31/22 10:35 Labs/Radiology: Radiology Impressions Gallbladder Ultrasound 08/31/22 10:44 IMPRESSION: 1. Gallbladder sludge. No gallbladder wall thickening or pericholecystic fluid. 2. Liver size upper limits of normal. 3. Otherwise normal RIGHT upper quadrant ultrasound. Abdomen/Pelvis CT 08/31/22 10:47 IMPRESSION: 1. Vicarious excretion of contrast in the gallbladder. Gallbladder is otherwise unchanged. 2. Mild diffuse fatty infiltration the liver. 3. No hydronephrosis in either kidney. 4. No significant changes compared to previous. Laboratory Results WBC 9.1 10^3/uL (4.0-10.0) 08/31/22 10:35 RBC 5.38 10^6/uL (4.1-5.3) H 08/31/22 10:35 Hgb 14.7 g/dL (11.7-16.6) 08/31/22 10:35 Hct 45.0 % (42.0-52.0) 08/31/22 10:35 MCV 83.6 fl (80-94) 08/31/22 10:35 MCH 27.3 pg (28.0-34.0) L 08/31/22 10:35 MCHC 32.7 g/dL (30.0-36.0) 08/31/22 10:35 RDW 15.1 % (12.1-15.1) 08/31/22 10:35 Plt Count 253 10^3/cmm (130-400) 08/31/22 10:35 MPV 10.3 fL (7.4-10.4) 08/31/22 10:35 Neut % (Auto) 64.3 % 08/31/22 10:35 Lymph % (Auto) 23.8 % 08/31/22 10:35 [place] % (Auto) 9.7 % 08/31/22 10:35 Eos % (Auto) 1.1 % 08/31/22 10:35 Baso % (Auto) 0.7 % 08/31/22 10:35 Neut # (Auto) 5.86 10^3/uL (1.8-7.7) 08/31/22 10:35 Lymph # (Auto) 2.2 10^3/uL (0.8-4.8) 08/31/22 10:35 [place] # (Auto) 0.9 10^3/uL (0.2-0.9) 08/31/22 10:35 Eos # (Auto) 0.1 10^3/uL (0.0-0.8) 08/31/22 10:35 Baso # (Auto) 0.1 10^3/uL (0.0-0.1) 08/31/22 10:35 Nucleated RBC % (auto) 0 % 08/31/22 10:35 Nucleated RBCs # 0.0 /100WBC 08/31/22 10:35 Sodium 134 mmol/L (136-145) L 08/31/22 10:35 Potassium 3.4 mmol/L (3.5-5.1) L 08/31/22 10:35 Chloride 97 mmol/L (98-107) L 08/31/22 10:35 Carbon Dioxide 25 mmol/L (22-29) 08/31/22 10:35 Anion Gap 15.4 (5-19) 08/31/22 10:35 BUN 13 mg/dL (6-20) 08/31/22 10:35 Creatinine 0.8 mg/dL (0.7-1.2) 08/31/22 10:35 GFR Calculation 110.0 mL/min (90-130) 08/31/22 10:35 Glucose 92 mg/dL (65-115) 08/31/22 10:35 Calculated Osmolality 278 mOsm/kg (285-295) L 08/31/22 10:35 Lactic Acid 1.0 mmol/L (0.5-2.2) 08/31/22 10:35 Calcium 9.6 mg/dL (8.5-10.5) 08/31/22 10:35 Total Bilirubin 1.1 mg/dL (0.15-1.2) 08/31/22 10:35 AST 21 U/L (0-40) 08/31/22 10:35 ALT 16 U/L (0-41) 08/31/22 10:35 Alkaline Phosphatase 68 U/L (40-130) 08/31/22 10:35 Total Protein 7.3 g/dL (6.6-8.7) 08/31/22 10:35 Albumin 4.6 g/dL (3.5-5.2) 08/31/22 10:35 Globulin 2.7 g/dL (1.3-4.6) 08/31/22 10:35 Lipase 28 U/L (13-60) 08/31/22 10:35 Urine Color Dark yellow (Yellow) 08/31/22 11:36 Urine Appearance Clear (CLEAR) 08/31/22 11:36 Urine pH 5 (5-7) 08/31/22 11:36 Ur Specific [place] 1.025 (1.005-1.030) 08/31/22 11:36 Urine Protein 1+ (Negative) H 08/31/22 11:36 Urine Glucose (UA) Norm (Normal) 08/31/22 11:36 Urine Ketones 1+ (Negative) H 08/31/22 11:36 Urine Blood Neg (Negative) 08/31/22 11:36 Urine Nitrate Negative (Negative) 08/31/22 11:36 Urine Bilirubin 1+ (Negative) H 08/31/22 11:36 Urine Urobilinogen 4 mg/dL (Negative) H 08/31/22 11:36 Ur Leukocyte Esterase Trace (Negative) H 08/31/22 11:36 Urine RBC None /hpf (0-2) 08/31/22 11:36 Urine WBC 0-4 /hpf (0-5) H 08/31/22 11:36 Ur Squamous Epith Cells Rare /hpf (0-5) 08/31/22 11:36 Amorphous Sediment Not Reportable 08/31/22 11:36 Urine Bacteria 1+ /hpf (NONE) H 08/31/22 11:36 Urine Mucus 2+ /hpf 08/31/22 11:36 Discharge Plan Discharge Patient Disposition: Home Clinical Impression: Cannabinoid hyperemesis syndrome Condition: Stable Prescriptions: New olanzapine 10 mg tablet,disintegrating 10 mg PO DAILY PRN (Reason: nausea and vomitting) Qty: 20 0RF Ativan 2 mg tablet 2 mg buccal Q6H PRN (Reason: nausea and vomiting) Qty: 14 0RF Discontinued chlorpromazine 25 mg tablet 25 mg PO TID Qty: 10 0RF Discharge Orders: Discharge ED (Routine); Ordered 08/31/22 Ordered By: Jn Horan Discharge Diet: Clear Liquid Discharge Activity: Increase activity as tolerated Patient Instructions: Opioid Safety, Pain Management Activity Restrictions/Additional Instructions: Clear liquid diet for next 24 to 48 hours and advance as tolerated. Symptoms worsen or change you can feel free to return to the emergency room. Recommend follow-up with your primary care doctor for consideration of further evaluation including possible gastroenterology consult. Coding Level of Care Code ED Hotel Front Office Manager for Chg Fwd Exam Comprehensive
[2022-08-31 12:30] VITALS: BP 141/85; O2SAT 100
[2022-08-31 13:15] VITALS: PULSE 48; O2SAT 98
== END 2022-08-31 13:25 | disposition home or self-care (01) ==
PROVIDERS: Emergency Provider Family Medicine
DX: R11.10 Vomiting, unspecified (principal); F12.90 Cannabis use, unspecified, uncomplicated
CPT/HCPCS: 36415; 74177; 76705; 80053; 81001; 83605; 83690; 85025; 87040; 96361; 96374; 96375; 99285; J1630; J2250; J7030; Q9967

== ENCOUNTER 2022-12-06 15:54 | Emergency (ER) | payer SELFPAY ==
[2022-12-06 16:11] VITALS: BP 155/99; PULSE 94; RESP 26; TEMP 37.1; O2SAT 97; BMI 21.4
[2022-12-06 16:16] VITALS: BP 132/79; PULSE 68; RESP 18; O2SAT 100
--- NOTE | 2022-12-06 16:16 | ECG_ITS ---
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 Measurements Intervals [place] Rate: 91 P: 89 GA: 157 QRS: 101 QRSD: 111 T: 68 QT: 366 QTc: 452 Interpretive Statements SINUS RHYTHM POSSIBLE LEFT ATRIAL ENLARGEMENT [-0.1mV P-WAVE IN V1/V2] RIGHT AXIS DEVIATION [QRS AXIS > 100] MODERATE INTRAVENTRICULAR CONDUCTION DELAY [110+ ms QRS DURATION] Compared to ECG 08/29/2022 21:32:18 Sinus bradycardia no longer present Prolonged QT interval no longer present Electronically Signed On 12-06-2022 22:07:51 BEAMER HAND by Prasad Brock M.D. [id number]
--- NOTE | 2022-12-06 16:49 | USR_ITS ---
PROCEDURE INFORMATION: Exam: US Abdomen Complete Exam date and time: 12/06/2022 5:10 PM Age: 37 years old Clinical indication: Abdominal pain; Acute; Additional info: Eval cholecystitis TECHNIQUE: Imaging protocol: Real-time ultrasound of the abdomen with image documentation. Complete exam. COMPARISON: CT abdomen pelvis w con* [id number] 08/31/2022 10:56 AM FINDINGS: Liver: Normal. No mass. Gallbladder: Normal. No gallstones. There is no gallbladder wall thickening. Biliary ducts: Normal. No stones. No dilation. Pancreas: Visualized pancreas is unremarkable. Right kidney: Normal. No mass. No hydronephrosis. Left kidney: Normal. No mass. No hydronephrosis. Spleen: Normal. No splenomegaly. Aorta: Normal. No aneurysm. Inferior vena cava: Normal. US/US abdomen complete* [id number] IMPRESSION: No acute findings.
[2022-12-06] MEDS: sodium chloride 0.9% 1,000 ML 999 ML IV (16:52)
[2022-12-06] MEDS: ondansetron 2 mg/ML SDV 2 mL 4 MG IVP (16:55)
[2022-12-06 16:59] LABS: Basophils # 0.1 10^3/uL (0.0-0.1); Basophils % 0.5 %; Eosinophils % 0.1 %; Hematocrit 53.6 % (42.0-52.0); Hemoglobin 17.8 g/dL (11.7-16.6); Lymphocytes # 2.3 10^3/uL (0.8-4.8); Lymphocytes % 18.3 %; Mean Corpuscular HGB Conc 33.2 g/dL (30.0-36.0); Mean Corpuscular Hemoglobin 26.9 pg (28.0-34.0); Mean Platelet Volume 10.4 fL (7.4-10.4); Monocytes % 8.4 %; Neutrophils # 8.92 10^3/uL (1.8-7.7); Neutrophils % 72.4 %; Nucleated Red Blood Cells % 0 %; Platelet Count 331 10^3/cmm (130-400); Red Blood Count 6.62 10^6/uL (4.1-5.3); Red Cell Distribution Width 16.7 % (12.1-15.1); White Blood Count 12.3 10^3/uL (4.0-10.0)
[2022-12-06] MEDS: haloperidol inj 5 mg/mL INJ 1 mL IVP (16:59)
[2022-12-06] MEDS: diphenhydrAMINE 50 mg/mL SDV 1mL 25 MG IVP (16:59)
[2022-12-06 17:14] LABS: Ketone (Acetest) Serum Negative (Negative)
[2022-12-06 17:22] LABS: Alanine Aminotransferase 8 U/L (0-41); Albumin Level 5.4 g/dL (3.5-5.2); Alcohol Level 11 mg/dL (0-10); Alkaline Phosphatase 103 U/L (40-130); Anion Gap 20.2 (5-19); Aspartate Amino Transferase 15 U/L (0-40); Blood Urea Nitrogen 19 mg/dL (6-20); Calcium 10.4 mg/dL (8.5-10.5); Carbon Dioxide 23 mmol/L (22-29); Chloride 94 mmol/L (98-107); Globulin 2.8 g/dL (1.3-4.6); Glucose 154 mg/dL (65-115); Lipase 18 U/L (13-60); Osmolality Calculated 283 mOsm/kg (285-295); Potassium 3.2 mmol/L (3.5-5.1); Sodium 134 mmol/L (136-145); Total Protein 8.2 g/dL (6.6-8.7)
[2022-12-06 17:23] LABS: Lactate (Lactic Acid level) 1.8 mmol/L (0.5-2.2)
[2022-12-06 17:27] VITALS: BP 132/79; PULSE 68; RESP 18; O2SAT 100
--- NOTE | 2022-12-06 18:04 | W.ED.ABDPA2 ---
HPI - Abdominal Pain General: Chief Complaint: Abdominal Pain Stated Complaint: abd pain, n/v Time Seen by Provider: 12/06/22 16:23 History of Present Illness: 37-year-old male with past medical history of substance abuse, marijuana use, recurrent bouts of nausea vomiting presenting with 2 days of progressive nausea and vomiting. States worse yesterday then abated then recurred today. He cannot control with home medications including olanzapine and acid control medications. States he can has come to the hospital when his symptoms get this bad. The symptoms are relieved temporarily with extremely hot bathing and no known worsening factors. He states he smokes marijuana approximately every 3 days. Patient states that he has been told he has hyperemesis in the past but he does not believe this to be the etiology of his symptoms. Has been imaged multiple times with CT scans and this has not resulted in a finding or diagnosis. Associated Symptoms: Reports nausea and vomiting; Denies chills and fever(s) Review of Systems General: Reports: 10 or more systems reviewed and unremarkable except in HPI and below Const: Denies: fever(s) or chills Eyes: Denies: change in vision or blurry vision ENMT: Denies: throat pain or uvular edema Card: Denies: chest pain or palpitations Resp: Denies: dyspnea or productive cough GI: Reports: abdominal pain, nausea and vomiting : Denies: flank pain or difficulty urinating Musc: Denies: neck pain or back pain Skin/Breast: Denies: rash or pruritus Neuro: Denies: headache(s) or numbness in extremities PFSH ED PFSH: Surgical History History of colonoscopy 15 years History of esophagogastroduodenoscopy (04/08/22) S/P gastric surgery patient not sure of details but for bleeding - done laparoscopic Social History Smoking and tobacco status: current every day smoker cigarettes Packs smoked per day: 0.5 Alcohol intake: current Alcohol intake frequency: few times a week Physical Exam Const: COMMON NORMALS: no acute distress HENMT: COMMON NORMALS: normocephalic, atraumatic, external ears normal and Normal external nose present HEAD & SCALP: normocephalic and atraumatic FACE & SINUS: normal facial exam NOSE: Normal external nose present EXTERNAL EAR: Yes external ears normal MOUTH: Normal oral and palatal mucosa present THROAT: no uvular edema Eye: COMMON NORMALS: Equal, round and reactive pupils present and EOMs intact bilaterally PUPIL: Yes Equal, round and reactive pupils present Neck/C-Spine: COMMON NORMALS: full ROM and no lymphadenopathy Chest: COMMONS NORMALS: normal inspection of the chest Resp: COMMON NORMALS: normal respiratory effort and No retractions GI: COMMON NORMALS: Normal to inspection, nondistended, normoactive bowel sounds present and Soft to palpation PALPATION: Yes Soft to palpation OTHER: Patient is writhing around in the room, withdrawing his knees to his chest intermittently, no rebound tenderness, no focal tenderness on physical examination. Negative Luis sign. No tenderness over McBurney's point. No suprapubic tenderness. : COMMON NORMALS: No no CVA tenderness and No normal external exam BLADDER/KIDNEY EXAM: No no CVA tenderness Back/Pelvis: COMMON NORMALS: negative for no CVA tenderness Course Vital Signs: Vital signs: Vital Signs Temperature 98.8 F 12/06/22 16:11 Pulse Rate 68 12/06/22 17:27 Respiratory Rate 18 12/06/22 17:27 Blood Pressure 132/79 12/06/22 17:27 Pulse Oximetry 100 12/06/22 17:27 Oxygen Delivery Me thod 12/06/22 17:27 MDM - Abdominal Pain Medical Decision Making 37-year-old male with history of hyperemesis syndrome and repeat CTs without actionable findings presenting with recurrent symptoms. Vitals nonactionable and improved after nausea control medications. Considered intra-abdominal surgical emergency, electrolyte derangement secondary to emesis, recurrent episode of marijuana hyperemesis, urinary tract affection, others. Given patient low risk for urinary tract infection labs otherwise nonactionable other than slightly low potassium, will treat patient's nausea vomiting symptoms. Patient provided Haldol, 5 mg, Benadryl 25 mg, and intravenous fluids with relief of his symptoms. States he is amenable to going home at this time given he is back to baseline. Advised on findings during his encounter and told follow-up with PCM or return to the emergency department for change in his symptoms. Lab Data 12/06/22 16:41 12/06/22 16:41 Labs/Radiology: Radiology Impressions Abdomen Ultrasound 12/06/22 16:49 IMPRESSION: No acute findings. Laboratory Results WBC 12.3 10^3/uL (4.0-10.0) H 12/06/22 16:41 RBC 6.62 10^6/uL (4.1-5.3) H 12/06/22 16:41 Hgb 17.8 g/dL (11.7-16.6) H 12/06/22 16:41 Hct 53.6 % (42.0-52.0) H 12/06/22 16:41 MCV 81.0 fl (80-94) 12/06/22 16:41 MCH 26.9 pg (28.0-34.0) L 12/06/22 16:41 MCHC 33.2 g/dL (30.0-36.0) 12/06/22 16:41 RDW 16.7 % (12.1-15.1) H 12/06/22 16:41 Plt Count 331 10^3/cmm (130-400) 12/06/22 16:41 MPV 10.4 fL (7.4-10.4) 12/06/22 16:41 Neut % (Auto) 72.4 % 12/06/22 16:41 Lymph % (Auto) 18.3 % 12/06/22 16:41 Crisp % (Auto) 8.4 % 12/06/22 16:41 Eos % (Auto) 0.1 % 12/06/22 16:41 Baso % (Auto) 0.5 % 12/06/22 16:41 Neut # (Auto) 8.92 10^3/uL (1.8-7.7) H 12/06/22 16:41 Lymph # (Auto) 2.3 10^3/uL (0.8-4.8) 12/06/22 16:41 Crisp # (Auto) 1.0 10^3/uL (0.2-0.9) H 12/06/22 16:41 Eos # (Auto) 0.0 10^3/uL (0.0-0.8) 12/06/22 16:41 Baso # (Auto) 0.1 10^3/uL (0.0-0.1) 12/06/22 16:41 Nucleated RBC % (auto) 0 % 12/06/22 16:41 Nucleated RBCs # 0.0 /100WBC 12/06/22 16:41 Sodium 134 mmol/L (136-145) L 12/06/22 16:41 Potassium 3.2 mmol/L (3.5-5.1) L 12/06/22 16:41 Chloride 94 mmol/L (98-107) L 12/06/22 16:41 Carbon Dioxide 23 mmol/L (22-29) 12/06/22 16:41 Anion Gap 20.2 (5-19) H 12/06/22 16:41 BUN 19 mg/dL (6-20) 12/06/22 16:41 Creatinine 1.0 mg/dL (0.7-1.2) 12/06/22 16:41 GFR Calculation 85.0 mL/min (90-130) L 12/06/22 16:41 Glucose 154 mg/dL (65-115) H 12/06/22 16:41 Calculated Osmolality 283 mOsm/kg (285-295) L 12/06/22 16:41 Lactate 1.8 mmol/L (0.5-2.2) 12/06/22 16:53 Calcium 10.4 mg/dL (8.5-10.5) 12/06/22 16:41 Total Bilirubin 1.0 mg/dL (0.15-1.2) 12/06/22 16:41 AST 15 U/L (0-40) 12/06/22 16:41 ALT 8 U/L (0-41) 12/06/22 16:41 Alkaline Phosphatase 103 U/L (40-130) 12/06/22 16:41 Total Protein 8.2 g/dL (6.6-8.7) 12/06/22 16:41 Albumin 5.4 g/dL (3.5-5.2) H 12/06/22 16:41 Globulin 2.8 g/dL (1.3-4.6) 12/06/22 16:41 Lipase 18 U/L (13-60) 12/06/22 16:41 Ethyl Alcohol 11 mg/dL (0-10) H 12/06/22 16:41 Serum Ketones Negative (Negative) 12/06/22 16:41 Discharge Plan Discharge Patient Disposition: Home, Self-Care w Plan Readm Clinical Impression: Marijuana use, Abdominal pain, Increased nausea and vomiting Condition: Stable Prescriptions: No Action Acid Controller 20 mg Tablet 20 mg PO TID PRN (Reason: unknown) Discharge Orders: Discharge ED (Routine); Ordered 12/06/22 Ordered By: Taurus Lujan Referrals: Bishop Naqvi, [Primary Care Provider] - (Follow-up with your doctor for further assessment of your nausea and vomiting. You were helped today in the emergency department with a dose of Haldol and Benadryl.) Discharge Diet: Advance as tolerated Discharge Activity: Resume usual activity Patient Instructions: Abdominal Pain (ED) Coding Level of Care Code ED Brazing Machine Operator Helper for Rafiq Montes
[2022-12-06] MEDS: potassium chloride oral liq 20 mEq/15 mL UDC 40 MEQ PO (18:20)
[2022-12-06 18:43] VITALS: BP 145/96; PULSE 80; RESP 18; O2SAT 99
== END 2022-12-06 18:45 | disposition home or self-care, planned readmission (81) ==
PROVIDERS: Emergency Provider General Practice; PCP Family Medicine
DX: R11.2 Nausea with vomiting, unspecified (principal); F12.988 Cannabis use, unspecified with other cannabis-induced disorder
CPT/HCPCS: 76700; 80053; 80307; 82009; 83605; 83690; 85025; 93005; 96361; 96374; 96375; 99285; J1200; J1630; J2405; J7030

== ENCOUNTER 2023-01-12 23:29 | Emergency (ER) | payer SELFPAY ==
[2023-01-12 23:29] VITALS: BP 141/102; PULSE 92; RESP 22; TEMP 36.8; O2SAT 96; BMI 21.4
--- NOTE | 2023-01-12 23:30 | XRR_ITS ---
PROCEDURE INFORMATION: Exam: XR Chest Exam date and time: 01/12/2023 11:43 PM Age: 37 years old Clinical indication: Chest pressure; Prior surgery; Surgery type: Gastric; Patient HX: C/O chest pain; Additional info: Cp TECHNIQUE: Imaging protocol: Radiologic exam of the chest. Views: 1 view. COMPARISON: CR XR chest 1V portable [id number] 08/29/2022 9:01 PM FINDINGS: Lungs: Unremarkable. No consolidation. Pleural spaces: Unremarkable. No pleural effusion. No pneumothorax. Heart/Mediastinum: Stable surgical clips near the GE junction and in the left upper quadrant. Bones/joints: Unremarkable. XR/XR chest 1V portable [id number] IMPRESSION: No acute cardiopulmonary abnormality.
--- NOTE | 2023-01-12 23:43 | W.ED.CHESTPA ---
HPI - Chest Pain General: Chief Complaint: Chest Pain Stated Complaint: CP Time Seen by Provider: 01/12/23 23:40 Source: patient Mode of arrival: ambulatory Limitations: no limitations History of Present Illness: 37-year-old male states that he has been having chest and abdominal pain over the last 3 days patient is tachypneic and appears very anxious he has a history of anxiety along with gastritis he denies any worsening improving factors states pain is sharp in nature rates it a 7 out of 10 denies any shortness of breath denies any vomiting or diarrhea. Associated symptoms: Reports abdominal pain; Deny dyspnea or fever(s) Review of Systems Const: Denies: fever(s), chills, body aches or change in appetite Eyes: Denies: blurry vision or eye discomfort ENMT: Denies: throat pain or dental pain Card: Reports: chest pain Resp: Denies: dyspnea GI: Reports: abdominal pain : Denies: dysuria Musc: Denies: neck pain or back pain Skin/Breast: Denies: rash Neuro: Denies: headache(s) Psych: Denies: depression Christos/Lymph: Denies: easy bruising All/Imm: Denies: urticaria PFSH ED PFSH: Surgical History History of colonoscopy 15 years History of esophagogastroduodenoscopy (04/08/22) S/P gastric surgery patient not sure of details but for bleeding - done laparoscopic Social History Smoking and tobacco status: current every day smoker cigarettes Packs smoked per day: 0.5 Alcohol intake: current Alcohol intake frequency: few times a week Physical Exam Const: COMMON NORMALS: no acute distress, patient oriented x3 and healthy appearing GENERAL APPEARANCE: anxious HENMT: COMMON NORMALS: normocephalic and atraumatic HEAD & SCALP: normocephalic and atraumatic Eye: COMMON NORMALS: Equal, round and reactive pupils present and EOMs intact bilaterally PUPIL: Yes Equal, round and reactive pupils present Neck/C-Spine: COMMON NORMALS: full ROM and supple Chest: COMMONS NORMALS: normal inspection of the chest and normal palpation of entire chest wall Resp: COMMON NORMALS: normal respiratory effort, No retractions, No use of accessory muscles and clear to auscultation bilaterally AUSCULTATION: clear to auscultation bilaterally Cardio: COMMON NORMALS: regular rate, regular rhythm and No murmurs present (Cardio) RATE: regular rate RHYTHM: regular rhythm GI: COMMON NORMALS: Normal to inspection, nondistended, normoactive bowel sounds present, Soft to palpation, non-tender and no masses PALPATION: Yes Soft to palpation Extremity: COMMON NORMALS: normal to inspection and full ROM Neuro: COMMON NORMALS: patient oriented x3, moves all extremities and no focal motor deficits Psych: COMMON NORMALS: mental status grossly normal, Normal thought process present and cooperative THOUGHT PROCESS: Normal thought process present Skin: COMMON NORMALS: no rashes or lesions noted and no wounds GENERAL SKIN EXAM: no rashes or lesions noted Course Vital Signs: Vital signs: Vital Signs Temperature 98.3 F 01/12/23 23:29 Pulse Rate 92 01/12/23 23:29 Respiratory Rate 22 H 01/12/23 23:29 Blood Pressure 141/102 01/12/23 23:29 Pulse Oximetry 96 01/12/23 23:29 Oxygen Delivery Me thod 01/12/23 23:29 MDM - Chest Pain Medical Decision Making Patient presents for chest and abdominal pain CT here is normal blood work is normal besides a mild leukocytosis he is stable for discharge we will start him on Protonix he is to follow-up with PCP and return if worsening. Lab Data 01/12/23 23:42 01/12/23 23:42 Radiology Impressions Chest X-Ray 01/12/23 23:30 IMPRESSION: No acute cardiopulmonary abnormality. Chest/Abdomen/Pelvis CT 01/12/23 23:59 IMPRESSION: No pulmonary embolism. IMPRESSION: There are few loops of mildly prominent small bowel , nonspecific but may be seen with gastroenteritis. Laboratory Results WBC 15.2 10^3/uL (4.0-10.0) H 01/12/23 23:42 RBC 6.55 10^6/uL (4.1-5.3) H 01/12/23 23:42 Hgb 18.0 g/dL (11.7-16.6) H 01/12/23 23:42 Hct 53.3 % (42.0-52.0) H 01/12/23 23:42 MCV 81.4 fl (80-94) 01/12/23 23:42 MCH 27.5 pg (28.0-34.0) L 01/12/23 23:42 MCHC 33.8 g/dL (30.0-36.0) 01/12/23 23:42 RDW 16.4 % (12.1-15.1) H 01/12/23 23:42 Plt Count 335 10^3/cmm (130-400) 01/12/23 23:42 MPV 9.7 fL (7.4-10.4) 01/12/23 23:42 Neut % (Auto) 75.7 % 01/12/23 23:42 Lymph % (Auto) 14.1 % 01/12/23 23:42 [place] % (Auto) 9.5 % 01/12/23 23:42 Eos % (Auto) 0.1 % 01/12/23 23: Baso % (Auto) 0.4 % 01/12/23 23:42 Neut # (Auto) 11.50 10^3/uL (1.8-7.7) H 01/12/23 23:42 Lymph # (Auto) 2.1 10^3/uL (0.8-4.8) 01/12/23 23:42 [place] # (Auto) 1.5 10^3/uL (0.2-0.9) H 01/12/23 23:42 Eos # (Auto) 0.0 10^3/uL (0.0-0.8) 01/12/23 23: Baso # (Auto) 0.1 10^3/uL (0.0-0.1) 01/12/23 23:42 Nucleated RBC % (auto) 0 % 01/12/23 23: Nucleated RBCs # 0.0 /100WBC 01/12/23 23:42 Sodium 136 mmol/L (136-145) 01/12/23 23:42 Potassium 3.6 mmol/L (3.5-5.1) 01/12/23 23:42 Chloride 100 mmol/L (98-107) 01/12/23 23: Carbon Dioxide 18 mmol/L (22-29) L 01/12/23 23:42 Anion Gap 21.6 (5-19) H 01/12/23 23:42 BUN 18 mg/dL (6-20) 01/12/23 23:42 Creatinine 1.2 mg/dL (0.7-1.2) 01/12/23 23:42 GFR Calculation 68.9 mL/min (90-130) L 01/12/23 23:42 Glucose 121 mg/dL (65-115) H 01/12/23 23:42 Calculated Osmolality 285 mOsm/kg (285-295) 01/12/23 23:42 Calcium 11.2 mg/dL (8.5-10.5) H 01/12/23 23:42 Total Bilirubin 1.1 mg/dL (0.15-1.2) 01/12/23 23:42 AST 17 U/L (0-40) 01/12/23 23:42 ALT 10 U/L (0-41) 01/12/23 23:42 Alkaline Phosphatase 85 U/L (40-130) 01/12/23 23:42 Troponin T Baseline 6 ng/L (0-15) 01/12/23 23:42 Troponin T 120 Minute 15.82 ng/L (0-15) H 01/13/23 01:35 Delta Troponin T 9.82 ABS# (0-10) 01/13/23 01:35 Total Protein 8.2 g/dL (6.6-8.7) 01/12/23 23:42 Albumin 5.1 g/dL (3.5-5.2) 01/12/23 23:42 Globulin 3.1 g/dL (1.3-4.6) 01/12/23 23:42 Lipase 26 U/L (13-60) 01/12/23 23:42 EKG Data EKG 1: I personally reviewed and interpreted this EKG as follows: EKG interpretation date: 01/12/23 EKG interpretation time: 23:35 Interpretation: nsr hr [address] or t wave abnormalities qrs 110 qtc 414 Discharge Plan Discharge Patient Disposition: Home Clinical Impression: Chest pain, Abdominal pain Condition: Stable Prescriptions: New Protonix 40 mg tablet,delayed release (DR/EC) 40 mg PO DAILY Qty: 60 0RF ondansetron 4 mg tablet,disintegrating 4 mg PO Q6H PRN (Reason: nausea and vomiting) Qty: 14 0RF Discontinued famotidine [Acid Controller] 20 mg Tablet 20 mg PO TID PRN (Reason: unknown) Discharge Orders: Discharge ED (Routine); Ordered 01/13/23 Ordered By: Mode Ramos Referrals: Bishop Naqvi DO [Primary Care Provider] - 1-3 days Discharge Diet: Advance as tolerated Discharge Activity: Resume usual activity Patient Instructions: Chest Pain (ED), Abdominal Pain (ED) Coding Level of Care Code ED It Help Desk Associate for Rafiq Montes
[2023-01-12 23:48] LABS: Basophils # 0.1 10^3/uL (0.0-0.1); Basophils % 0.4 %; Eosinophils % 0.1 %; Hematocrit 53.3 % (42.0-52.0); Lymphocytes # 2.1 10^3/uL (0.8-4.8); Lymphocytes % 14.1 %; Mean Corpuscular HGB Conc 33.8 g/dL (30.0-36.0); Mean Corpuscular Hemoglobin 27.5 pg (28.0-34.0); Mean Corpuscular Volume 81.4 fl (80-94); Mean Platelet Volume 9.7 fL (7.4-10.4); Monocytes # 1.5 10^3/uL (0.2-0.9); Monocytes % 9.5 %; Neutrophils % 75.7 %; Nucleated Red Blood Cells % 0 %; Platelet Count 335 10^3/cmm (130-400); Red Blood Count 6.55 10^6/uL (4.1-5.3); Red Cell Distribution Width 16.4 % (12.1-15.1); White Blood Count 15.2 10^3/uL (4.0-10.0)
[2023-01-12] MEDS: lidocaine 2% viscous 15 ML, aluminum-mag hydrox-simethicon 30 ML, sucralfate oral liq 1 GM PO (23:49)
[2023-01-12] MEDS: morphine 4 mg/mL SDV 1 mL IVP (23:52)
[2023-01-12] MEDS: LORazepam 2 mg/mL INJ 1 mL 1 MG IVP (23:52)
--- NOTE | 2023-01-12 23:59 | CTR_ITS ---
PROCEDURE INFORMATION: Exam: CTA Chest With Contrast Exam date and time: 01/13/2023 12:34 AM Age: 37 years old Clinical indication: Pain and abnormal findings; Abnormal lab test; Other: N/a; Chest pressure; Prior surgery; Surgery type: Gastric. Patient unable to specify. Patient HX: C/O chest and epigastric pain. Elevated wbc. ; Additional info: Cp TECHNIQUE: Imaging protocol: Computed tomographic angiography of the chest with contrast. 3D rendering (Not supervised by radiologist): MIP and/or 3D reconstructed images were created by the technologist. Radiation optimization: All CT scans at this facility use at least one of these dose optimization techniques: automated exposure control; mA and/or kV adjustment per patient size (includes targeted exams where dose is matched to clinical indication); or iterative reconstruction. Contrast material: OMNI 350; Contrast volume: 100 ml; Contrast route: INTRAVENOUS (IV); REPORTING DATA: Count of CT and Cardiac NM exams in prior 12 months: This patient has received 3 known CTs and 0 known cardiac nuclear medicine studies in the 12 months prior to the current study. COMPARISON: CR (CHEST, ) 01/12/2023 11:43 PM RADIATION DOSE METRICS: Total DLP (mGy-cm): 630.51 FINDINGS: Pulmonary arteries: No pulmonary embolism. Aorta: Unremarkable. No aortic aneurysm. No aortic dissection. Lungs: Unremarkable. No consolidation. No masses. Pleural spaces: Unremarkable. No pneumothorax. No pleural effusion. Heart: Unremarkable. No cardiomegaly. No pericardial effusion. Lymph nodes: Unremarkable. No enlarged lymph nodes. Bones/joints: Unremarkable. No acute fracture. Soft tissues: Unremarkable. PROCEDURE INFORMATION: Exam: CT Abdomen And Pelvis With Contrast Exam date and time: 01/13/2023 12:34 AM Age: 37 years old Clinical indication: Pain and abnormal findings; Abnormal lab test; Other: N/a; Chest pressure; Prior surgery; Surgery type: Gastric. Patient unable to specify. Patient HX: C/O chest and epigastric pain. Elevated wbc. ; Additional info: Cp TECHNIQUE: Imaging protocol: Computed tomography of the abdomen and pelvis with contrast. Radiation optimization: All CT scans at this facility use at least one of these dose optimization techniques: automated exposure control; mA and/or kV adjustment per patient size (includes targeted exams where dose is matched to clinical indication); or iterative reconstruction. Contrast material: OMNI 350; Contrast volume: 100 ml; Contrast route: INTRAVENOUS (IV); REPORTING DATA: Count of CT and Cardiac NM exams in prior 12 months: This patient has received 3 known CTs and 0 known cardiac nuclear medicine studies in the 12 months prior to the current study. COMPARISON: CT abdomen pelvis w con* [id number] 08/31/2022 10:56 AM RADIATION DOSE METRICS: Total DLP (mGy-cm): 630.51 FINDINGS: Lungs: The lung bases are clear. No effusion Liver: There is focal fatty infiltration along the falciform ligament. Gallbladder and bile ducts: No wall thickening, pericholecystic fluid or stones. Pancreas: Normal. No ductal dilation. Spleen: Normal. No splenomegaly. Adrenal glands: Normal. No mass. Kidneys and ureters: Normal. No hydronephrosis. Stomach and bowel: There are few loops of mildly prominent small bowel , nonspecific but may be seen with gastroenteritis. Appendix: No evidence of appendicitis. Intraperitoneal space: Unremarkable. No free air. No significant fluid collection. Vasculature: Unremarkable. No abdominal aortic aneurysm. Lymph nodes: Unremarkable. No enlarged lymph nodes. Urinary bladder: Unremarkable as visualized. Reproductive: Unremarkable as visualized. Bones/joints: Unremarkable. No acute fracture. Soft tissues: Surgical changes are present in the left upper quadrant. CT/CT angio chest w abd pel w con IMPRESSION: No pulmonary embolism. IMPRESSION: There are few loops of mildly prominent small bowel , nonspecific but may be seen with gastroenteritis.
[2023-01-13 00:08] LABS: Alanine Aminotransferase 10 U/L (0-41); Albumin Level 5.1 g/dL (3.5-5.2); Alkaline Phosphatase 85 U/L (40-130); Anion Gap 21.6 (5-19); Aspartate Amino Transferase 17 U/L (0-40); Blood Urea Nitrogen 18 mg/dL (6-20); Calcium 11.2 mg/dL (8.5-10.5); Carbon Dioxide 18 mmol/L (22-29); Chloride 100 mmol/L (98-107); Globulin 3.1 g/dL (1.3-4.6); Glomerular Filtration Rate 68.9 mL/min (90-130); Glucose 121 mg/dL (65-115); Lipase 26 U/L (13-60); Osmolality Calculated 285 mOsm/kg (285-295); Potassium 3.6 mmol/L (3.5-5.1); Sodium 136 mmol/L (136-145); Total Bilirubin 1.1 mg/dL (0.15-1.2); Total Protein 8.2 g/dL (6.6-8.7); Troponin(5th) Baseline 6 ng/L (0-15)
[2023-01-13] MEDS: iohexol 350 mg/mL 500 mL Btl (per mL) IV (00:38)
[2023-01-13 01:54] LABS: Troponin 5 2HR 15.82 ng/L (0-15)
[2023-01-13 02:00] LABS: Troponin 5 2HR Delta 9.82 ABS# (0-10)
[2023-01-13] MEDS: haloperidol inj 5 mg/mL INJ 1 mL IVP (03:03)
== END 2023-01-13 03:11 | disposition home or self-care (01) ==
PROVIDERS: Emergency Provider Emergency Medicine; PCP Family Medicine
DX: R07.9 Chest pain, unspecified (principal); R10.9 Unspecified abdominal pain; F17.210 Nicotine dependence, cigarettes, uncomplicated
CPT/HCPCS: 71045; 71275; 74177; 80053; 83690; 84484; 85025; 96374; 96375; 99285; J1630; J2060; J2270; Q9967

== ENCOUNTER 2023-01-14 07:46 | Emergency (ER) | payer SELFPAY ==
--- NOTE | 2023-01-14 07:50 | ECG_ITS ---
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 Measurements Intervals [place] Rate: 80 P: 83 [place]: 164 QRS: 95 QRSD: 124 T: 67 QT: 397 QTc: 459 Interpretive Statements SINUS RHYTHM BORDERLINE RIGHT AXIS DEVIATION [QRS AXIS > 90] MODERATE INTRAVENTRICULAR CONDUCTION DELAY [110+ ms QRS DURATION] Compared to ECG 12/06/2022 16:20:26 No significant changes Electronically Signed On 01-14-2023 18:43:08 CDT by Chinmay Soliz M.D. [id number] f
--- NOTE | 2023-01-14 07:50 | XR_ITS ---
WS: [id number] Exam: XR chest 1V portable [id number] Date/Time of Exam: 01/14/2023 7:53 AM Reason For Exam: dyspnea/cough Comparison 01/12/2023. The lungs are clear and fully inflated. Normal cardiomediastinal structures. Bony elements are intact . Surgical clips in the upper left abdomen. XR/XR chest 1V portable [id number] IMPRESSION: 1. Negative chest. No change.
[2023-01-14 07:53] VITALS: BP 122/90; PULSE 84; RESP 22; TEMP 35.8; O2SAT 96
--- NOTE | 2023-01-14 08:06 | ED_ITS ---
HPI - Abdominal Pain General: Chief Complaint: Abdominal Pain Stated Complaint: Chest Pain Time Seen by Provider: 01/14/23 07:49 Source: patient Mode of arrival: ambulatory History of Present Illness: 37-year-old male presents emergency complaining of persistent nausea from the last couple of days he was seen last night seem to g et better and then worsened again. He has a history of hyperemesis/cannabinoid syndrome. He is still is continuing to use marijuana he denies any medication on hematemesis or coffee-ground emesis. MD elicited complaint: abdominal pain Onset (ago): day(s) Pain Consistency: constant Location: Epigastric Severity: mild Quality: cramping Radiation: none Exacerbating factors: nothing Relieving factors: nothing Associated Symptoms: Reports nausea and vomiting; Denies anorexia, belching, bloating, change in bowel habits, change in stool character, chills, coffee ground emesis, constipation, GI cramping, diarrhea, dyspepsia, dysuria, excessive flatus, fever(s), heartburn, hematochezia, hematuria, hematemesis, fecal incontinence, loose stools, melena, poor appetite and syncope Review of Systems Const: Denies: fever(s), chills, fatigue or malaise ENMT: Denies: throat pain, ear or mastoid pain, nasal discharge or nasal congestion Card: Denies: chest pain, palpitations, irregular heart rhythm, edema or syncope Resp: Denies: dyspnea, productive cough or non-productive cough GI: Reports: abdominal pain, nausea and vomiting; Denies: hematemesis, coffee ground emesis, heartburn, diarrhea, constipation, bloating, GI cramping, belching, excessive flatus, fecal incontinence, change in bowel habits, change in stool character, hematochezia or melena : Denies: dysuria, urinary frequency, urinary urgency or hematuria Skin/Breast: Denies: rash or pruritus PFSH ED PFSH: Surgical History History of colonoscopy 15 years History of esophagogastroduodenoscopy (04/08/22) S/P gastric surgery patient not sure of details but for bleeding - done laparoscopic Social History Smoking and tobacco status: current every day smoker cigarettes Packs smoked per day: 0.5 Alcohol intake: current Alcohol intake frequency: few times a week Physical Exam Const: COMMON NORMALS: no acute distress GENERAL APPEARANCE: cooperative and comfortable ORIENTATION/CONSCIOUSNESS: Yes awake, Yes oriented to person, Yes oriented to place and Yes oriented to time HENMT: COMMON NORMALS: normocephalic, atraumatic and hearing grossly normal bilaterally HEAD & SCALP: normocephalic and atraumatic Resp: COMMON NORMALS: normal respiratory effort, No retractions, No use of accessory muscles and clear to auscultation bilaterally AUSCULTATION: clear to auscultation bilaterally Cardio: COMMON NORMALS: regular rate, regular rhythm and No murmurs present (Cardio) RATE: regular rate RHYTHM: regular rhythm GI: COMMON NORMALS: No hepatosplenomegaly present AUSCULTATION: Yes normoactive bowel sounds PALPATION: Yes Tenderness to palpation present (GI) (epigastric), No Guarding due to palpation present (GI) and Yes No hepatosplen omegaly present : COMMON NORMALS: Yes no CVA tenderness BLADDER/KIDNEY EXAM: Yes no CVA tenderness Back/Pelvis: COMMON NORMALS: no CVA tenderness Extremity: COMMON NORMALS: normal to inspection, capillary refill normal, no clubbing, cyanosis or edema, no calf tenderness and no pedal edema Neuro: SENSORIUM/ORIENTATION: Yes oriented to person, Yes oriented to place and Yes oriented to time Skin: COMMON NORMALS: no rashes or lesions noted GENERAL SKIN EXAM: no rashes or lesions noted Course Vital Signs: Vital signs: Vital Signs Temperature 96.5 F L 01/14/23 07:53 Pulse Rate 74 01/14/23 10:30 Respiratory Rate 16 01/14/23 10:30 Blood Pressure 129/70 01/14/23 10:30 Pulse Oximetry 98 01/14/23 10:30 Oxygen Delivery Me thod 01/14/23 08:56 MDM - Abdominal Pain Medical Decision Making Improved with meds and fluids. Discharge home with olanzapine and Ativan to use as needed encourage abstinence from marijuana. Liquid diet today and tomorrow and then advance as tolerated. After labs are completed repeat abdominal exam nonsurgical abdomen did not repeat the CT reviewed CT done previously. Medical Records I reviewed the patient's medical records. Lab Data I reviewed the patient's lab results. 01/14/23 08:04 01/14/23 08:04 Labs/Radiology: Radiology Impressions Chest X-Ray 01/14/23 07:50 IMPRESSION: 1. Negative chest. No change. Laboratory Results WBC 11.1 10^3/uL (4.0-10.0) H 01/14/23 08:04 RBC 6.13 10^6/uL (4.1-5.3) H 01/14/23 08:04 Hgb 16.7 g/dL (11.7-16.6) H 01/14/23 08:04 Hct 49.7 % (42.0-52.0) 01/14/23 08:04 MCV 81.1 fl (80-94) 01/14/23 08:04 MCH 27.2 pg (28.0-34.0) L 01/14/23 08:04 MCHC 33.6 g/dL (30.0-36.0) 01/14/23 08:04 RDW 15.2 % (12.1-15.1) H 01/14/23 08:04 Plt Count 283 10^3/cmm (130-400) 01/14/23 08:04 MPV 9.6 fL (7.4-10.4) 01/14/23 08:04 Neut % (Auto) 67.4 % 01/14/23 08:04 Lymph % (Auto) 20.8 % 01/14/23 08:04 [place] % (Auto) 10.2 % 01/14/23 08:04 Eos % (Auto) 0.9 % 01/14/23 08:04 Baso % (Auto) 0.4 % 01/14/23 08:04 Neut # (Auto) 7.47 10^3/uL (1.8-7.7) 01/14/23 08:04 Lymph # (Auto) 2.3 10^3/uL (0.8-4.8) 01/14/23 08:04 [place] # (Auto) 1.1 10^3/uL (0.2-0.9) H 01/14/23 08:04 Eos # (Auto) 0.1 10^3/uL (0.0-0.8) 01/14/23 08:04 Baso # (Auto) 0.0 10^3/uL (0.0-0.1) 01/14/23 08:04 Nucleated RBC % (auto) 0 % 01/14/23 08:04 Nucleated RBCs # 0.0 /100WBC 01/14/23 08:04 Sodium 127 mmol/L (136-145) L 01/14/23 08:04 Potassium 3.2 mmol/L (3.5-5.1) L 01/14/23 08:04 Chloride 89 mmol/L (98-107) L 01/14/23 08:04 Carbon Dioxide 22 mmol/L (22-29) 01/14/23 08:04 Anion Gap 19.2 (5-19) H 01/14/23 08:04 BUN 13 mg/dL (6-20) 01/14/23 08:04 Creatinine 1.0 mg/dL (0.7-1.2) 01/14/23 08:04 GFR Calculation 85.0 mL/min (90-130) L 01/14/23 08:04 Glucose 111 mg/dL (65-115) 01/14/23 08:04 Calculated Osmolality 265 mOsm/kg (285-295) L 01/14/23 08:04 Calcium 10.4 mg/dL (8.5-10.5) 01/14/23 08:04 Lipase 20 U/L (13-60) 01/14/23 08:04 Urine Color [place] (Yellow) 01/14/23 08:15 Urine Appearance Clear (CLEAR) 01/14/23 08:15 Urine pH 5 (5-7) 01/14/23 08:15 Ur Specific [place] 1.025 (1.005-1.030) 01/14/23 08:15 Urine Protein 1+ (Negative) H 01/14/23 08:15 Urine Glucose (UA) Norm (Normal) 01/14/23 08:15 Urine Ketones Negative (Negative) 01/14/23 08:15 Urine Blood Neg (Negative) 01/14/23 08:15 Urine Nitrate Negative (Negative) 01/14/23 08:15 Urine Bilirubin 1+ (Negative) H 01/14/23 08:15 Urine Urobilinogen 1 mg/dL (Negative) H 01/14/23 08:15 Ur Leukocyte Esterase Negative (Negative) 01/14/23 08:15 Urine RBC 0-4 /hpf (0-2) H 01/14/23 08:15 Urine WBC 0-4 /hpf (0-5) H 01/14/23 08:15 Ur Squamous Epith Cells 0-4 /hpf (0-5) H 01/14/23 08:15 Amorphous Sediment Not Reportable 01/14/23 08:15 Urine Bacteria Trace /hpf (NONE) 01/14/23 08:15 Urine Mucus 2+ /hpf 01/14/23 08:15 Discharge Plan Discharge Patient Disposition: Home Clinical Impression: Cannabinoid hyperemesis syndrome Condition: Stable Prescriptions: New olanzapine 10 mg tablet 10 mg PO Q6H PRN (Reason: nausea and vomiting) Qty: 14 0RF Ativan 2 mg tablet 2 mg PO Q6H PRN (Reason: nausea and vomiting) Qty: 14 0RF No Action pantoprazole [Protonix] 40 mg tablet,delayed release (DR/EC) 40 mg PO DAILY Qty: 60 0RF Rx Instructions: (not filled rx as of 01/14/23) ondansetron 4 mg tablet,disintegrating 4 mg PO Q6H PRN (Reason: nausea and vomiting) Qty: 14 0RF Rx Instructions: (not filled rx as of 01/14/23) Pepcid 20 mg Tablet 20 mg PO TID Discharge Orders: Discharge ED (Routine); Ordered 01/14/23 Ordered By: Jn Horan Referrals: Bishop Naqvi DO [Primary Care Provider] - Discharge Diet: Usual diet Discharge Activity: Resume usual activity Coding Level of Care Code ED Supervisor Rubber Covering for Rafiq Montes
[2023-01-14 08:14] LABS: Basophils % 0.4 %; Eosinophils # 0.1 10^3/uL (0.0-0.8); Eosinophils % 0.9 %; Hematocrit 49.7 % (42.0-52.0); Hemoglobin 16.7 g/dL (11.7-16.6); Lymphocytes # 2.3 10^3/uL (0.8-4.8); Lymphocytes % 20.8 %; Mean Corpuscular HGB Conc 33.6 g/dL (30.0-36.0); Mean Corpuscular Hemoglobin 27.2 pg (28.0-34.0); Mean Corpuscular Volume 81.1 fl (80-94); Mean Platelet Volume 9.6 fL (7.4-10.4); Monocytes # 1.1 10^3/uL (0.2-0.9); Monocytes % 10.2 %; Neutrophils # 7.47 10^3/uL (1.8-7.7); Neutrophils % 67.4 %; Nucleated Red Blood Cells % 0 %; Platelet Count 283 10^3/cmm (130-400); Red Blood Count 6.13 10^6/uL (4.1-5.3); Red Cell Distribution Width 15.2 % (12.1-15.1); White Blood Count 11.1 10^3/uL (4.0-10.0)
[2023-01-14] MEDS: LORazepam 2 mg/mL INJ 1 mL IVP (08:23)
[2023-01-14] MEDS: haloperidol inj 5 mg/mL INJ 1 mL 2.5 MG IVP (08:24)
[2023-01-14] MEDS: sodium chloride 0.9% 1,000 ML 999 ML IV ×2 (08:29→09:06)
[2023-01-14 08:43] LABS: Add Urine Microscopic? YES; Bilirubin Urine 1+ (Negative); Blood Urine Neg (Negative); Glucose Urine UA Norm (Normal); Ketones Urine Negative (Negative); Leukocyte Esterase Urine Negative (Negative); Nitrate Urine Negative (Negative); Protein Urine 1+ (Negative); Specific Gravity, Urine 1.025 (1.005-1.030); Urine Appearance Clear (CLEAR); Urine Color Amber (Yellow); Urobilinogen Urine 1 mg/dL (Negative); pH Urine 5 (5-7)
[2023-01-14 08:46] LABS: Add Urine Culture? No; Bacteria Urine TRACE /hpf; Mucus Urine 2+ /hpf; RBC Urine 0-4 /hpf (0-2); Squamous Epithelial Cell Urine 0-4 /hpf (0-5); WBC Urine 0-4 /hpf (0-5)
[2023-01-14 08:47] LABS: Anion Gap 19.2 (5-19); Blood Urea Nitrogen 13 mg/dL (6-20); Calcium 10.4 mg/dL (8.5-10.5); Carbon Dioxide 22 mmol/L (22-29); Chloride 89 mmol/L (98-107); Glucose 111 mg/dL (65-115); Lipase 20 U/L (13-60); Osmolality Calculated 265 mOsm/kg (285-295); Potassium 3.2 mmol/L (3.5-5.1); Sodium 127 mmol/L (136-145)
[2023-01-14 08:56] VITALS: BP 128/72; PULSE 74; RESP 16; O2SAT 98
[2023-01-14 10:30] VITALS: BP 129/70; PULSE 74; RESP 16; O2SAT 98
== END 2023-01-14 10:31 | disposition home or self-care (01) ==
PROVIDERS: Emergency Provider Family Medicine; PCP Family Medicine
DX: R11.11 Vomiting without nausea (principal); F12.90 Cannabis use, unspecified, uncomplicated; F17.210 Nicotine dependence, cigarettes, uncomplicated
CPT/HCPCS: 71045; 80048; 81001; 83690; 85025; 93005; 96361; 96374; 96375; 99285; J1630; J2060; J7030

== ENCOUNTER 2023-01-16 09:49 | Emergency (ER) | payer SELFPAY ==
--- NOTE | 2023-01-16 09:51 | W.ED.NEUROSD ---
HPI - Neuro Symptoms/Deficit General: Chief Complaint: GI Bleed Stated Complaint: Black stool, Abd pain Time Seen by Provider: 01/16/23 09:50 Source: patient Mode of arrival: ambulatory [facility] ED PFSH: Surgical History History of colonoscopy 15 years History of esophagogastroduodenoscopy (04/08/22) S/P gastric surgery patient not sure of details but for bleeding - done laparoscopic Social History Smoking and tobacco status: current every day smoker cigarettes Packs smoked per day: 0.5 Alcohol intake: current Alcohol intake frequency: few times a week Course Vital Signs: Vital signs: Vital Signs Temperature 97.7 F 01/16/23 10:09 Pulse Rate 89 01/16/23 10:09 Respiratory Rate 16 01/16/23 10:09 Blood Pressure 147/110 01/16/23 10:09 Pulse Oximetry 100 01/16/23 10:09 Oxygen Delivery Sd thod 01/16/23 10:09 MDM - Neuro Symptoms/Deficit Lab Data 01/16/23 10:40 01/16/23 10:40 Laboratory Results WBC 9.3 10^3/uL (4.0-10.0) 01/16/23 10:40 RBC 5.79 10^6/uL (4.1-5.3) H 01/16/23 10:40 Hgb 16.1 g/dL (11.7-16.6) 01/16/23 10:40 Hct 48.3 % (42.0-52.0) 01/16/23 10:40 MCV 83.4 fl (80-94) 01/16/23 10:40 MCH 27.8 pg (28.0-34.0) L 01/16/23 10:40 MCHC 33.3 g/dL (30.0-36.0) 01/16/23 10:40 RDW 15.3 % (12.1-15.1) H 01/16/23 10:40 Plt Count 275 10^3/cmm (130-400) 01/16/23 10:40 MPV 10.1 fL (7.4-10.4) 01/16/23 10:40 Neut % (Auto) 67.6 % 01/16/23 10:40 Lymph % (Auto) 19.9 % 01/16/23 10:40 [place] % (Auto) 11.2 % 01/16/23 10:40 Eos % (Auto) 0.5 % 01/16/23 10:40 Baso % (Auto) 0.5 % 01/16/23 10:40 Neut # (Auto) 6.29 10^3/uL (1.8-7.7) 01/16/23 10:40 Lymph # (Auto) 1.9 10^3/uL (0.8-4.8) 01/16/23 10:40 [place] # (Auto) 1.0 10^3/uL (0.2-0.9) H 01/16/23 10:40 Eos # (Auto) 0.1 10^3/uL (0.0-0.8) 01/16/23 10:40 Baso # (Auto) 0.1 10^3/uL (0.0-0.1) 01/16/23 10:40 Nucleated RBC % (auto) 0 % 01/16/23 10:40 Nucleated RBCs # 0.0 /100WBC 01/16/23 10:40 Sodium 135 mmol/L (136-145) L 01/16/23 10:40 Potassium 3.3 mmol/L (3.5-5.1) L 01/16/23 10:40 Chloride 96 mmol/L (98-107) L 01/16/23 10:40 Carbon Dioxide 24 mmol/L (22-29) 01/16/23 10:40 Anion Gap 18.3 (5-19) 01/16/23 10:40 BUN 11 mg/dL (6-20) 01/16/23 10:40 Creatinine 1.0 mg/dL (0.7-1.2) 01/16/23 10:40 GFR Calculation 85.0 mL/min (90-130) L 01/16/23 10:40 Glucose 97 mg/dL (65-115) 01/16/23 10:40 Calculated Osmolality 279 mOsm/kg (285-295) L 01/16/23 10:40 Calcium 9.8 mg/dL (8.5-10.5) 01/16/23 10:40 Total Bilirubin 0.7 mg/dL (0.15-1.2) 01/16/23 10:40 AST 20 U/L (0-40) 01/16/23 10:40 ALT 12 U/L (0-41) 01/16/23 10:40 Alkaline Phosphatase 68 U/L (40-130) 01/16/23 10:40 Total Protein 7.8 g/dL (6.6-8.7) 01/16/23 10:40 Albumin 4.7 g/dL (3.5-5.2) 01/16/23 10:40 Globulin 3.1 g/dL (1.3-4.6) 01/16/23 10:40 Urine Color Yellow (Yellow) 01/16/23 10:33 Urine Appearance Clear (CLEAR) 01/16/23 10:33 Urine pH 5 (5-7) 01/16/23 10:33 Ur Specific [place] 1.025 (1.005-1.030) 01/16/23 10:33 Urine Protein Trace (Negative) 01/16/23 10:33 Urine Glucose (UA) Norm (Normal) 01/16/23 10:33 Urine Ketones 1+ (Negative) H 01/16/23 10:33 Urine Blood Neg (Negative) 01/16/23 10:33 Urine Nitrate Negative (Negative) 01/16/23 10:33 Urine Bilirubin Neg (Negative) 01/16/23 10:33 Urine Urobilinogen Norm mg/dL (Negative) 01/16/23 10:33 Ur Leukocyte Esterase Negative (Negative) 01/16/23 10:33 Urine RBC None /hpf (0-2) 01/16/23 10:33 Urine WBC Rare /hpf (0-5) 01/16/23 10:33 Ur Squamous Epith Cells None /hpf (0-5) 01/16/23 10:33 Amorphous Sediment Not Reportable 01/16/23 10:33 Urine Bacteria Trace /hpf (NONE) 01/16/23 10:33 Urine Mucus 2+ /hpf 01/16/23 10:33 Discharge Plan Discharge Patient Disposition: Home Clinical Impression: Chronic abdominal pain, Cannabinoid hyperemesis syndrome Condition: Stable Prescriptions: No Action pantoprazole [Protonix] 40 mg tablet,delayed release (DR/EC) 40 mg PO DAILY Qty: 60 0RF olanzapine 10 mg tablet 10 mg PO Q6H PRN (Reason: nausea and vomiting) Qty: 14 0RF lorazepam [Ativan] 2 mg tablet 2 mg PO Q6H PRN (Reason: nausea and vomiting) Qty: 14 0RF Discharge Orders: Discharge ED (Routine); Ordered 01/16/23 Ordered By: nJ Horan Referrals: Bishop Naqvi, [Primary Care Provider] - Discharge Diet: Usual diet Discharge Activity: Increase activity as tolerated Patient Instructions: Abdominal Pain (ED), Opioid Safety, Pain Management Activity Restrictions/Additional Instructions: You are seen today for chronic abdominal pain. Review of your chart shows that you have had 8 or 9 CTs of the abdomen in the last 2 years. Your abdominal exam was benign and your labs did not show any significant abnormalities. The black stool is likely caused by the use of Pepto-Bismol. Suspect the chronic abdominal pain is in part due to the use of cannabinoid products. Recommend that you abstain from these. You should follow-up with Dr. Baltazar as soon as you are able. Further evaluation including possible repeat EGD or referral to pain clinic can be directed by Giovanny as appropriate. Stand Alone Forms: Work/School Release Coding Level of Care Code ED Field Service Poultry Technician for Rafiq Montes
[2023-01-16 10:09] VITALS: BP 147/110; PULSE 89; RESP 16; TEMP 36.5; O2SAT 100; BMI 21.2
[2023-01-16] MEDS: lidocaine 2% viscous 15 ML, aluminum-mag hydrox-simethicon 30 ML, sucralfate oral liq 1 GM PO (10:35)
[2023-01-16] MEDS: promethazine 25 mg/mL SDV 1 mL IM (10:36)
[2023-01-16] MEDS: sodium chloride 0.9% 1,000 ML 999 ML IV ×2 (10:42→12:19)
--- NOTE | 2023-01-16 11:05 | PC.NURSE ---
REPORT GIVEN TO O[facility].
[2023-01-16 11:07] LABS: Basophils # 0.1 10^3/uL (0.0-0.1); Basophils % 0.5 %; Eosinophils # 0.1 10^3/uL (0.0-0.8); Eosinophils % 0.5 %; Hematocrit 48.3 % (42.0-52.0); Hemoglobin 16.1 g/dL (11.7-16.6); Lymphocytes # 1.9 10^3/uL (0.8-4.8); Lymphocytes % 19.9 %; Mean Corpuscular HGB Conc 33.3 g/dL (30.0-36.0); Mean Corpuscular Hemoglobin 27.8 pg (28.0-34.0); Mean Corpuscular Volume 83.4 fl (80-94); Mean Platelet Volume 10.1 fL (7.4-10.4); Monocytes % 11.2 %; Neutrophils # 6.29 10^3/uL (1.8-7.7); Neutrophils % 67.6 %; Nucleated Red Blood Cells % 0 %; Platelet Count 275 10^3/cmm (130-400); Red Blood Count 5.79 10^6/uL (4.1-5.3); Red Cell Distribution Width 15.3 % (12.1-15.1); White Blood Count 9.3 10^3/uL (4.0-10.0)
[2023-01-16 11:19] LABS: Alanine Aminotransferase 12 U/L (0-41); Albumin Level 4.7 g/dL (3.5-5.2); Alkaline Phosphatase 68 U/L (40-130); Blood Urea Nitrogen 11 mg/dL (6-20); Calcium 9.8 mg/dL (8.5-10.5); Carbon Dioxide 24 mmol/L (22-29); Chloride 96 mmol/L (98-107); Globulin 3.1 g/dL (1.3-4.6); Glucose 97 mg/dL (65-115); Osmolality Calculated 279 mOsm/kg (285-295); Sodium 135 mmol/L (136-145); Total Bilirubin 0.7 mg/dL (0.15-1.2); Total Protein 7.8 g/dL (6.6-8.7)
[2023-01-16 11:27] LABS: Anion Gap 18.3 (5-19); Aspartate Amino Transferase 20 U/L (0-40); Potassium 3.3 mmol/L (3.5-5.1)
[2023-01-16 11:41] LABS: Urine Appearance Clear (CLEAR); Urine Color Yellow (Yellow)
[2023-01-16 11:42] LABS: Add Urine Microscopic? YES; Bilirubin Urine Neg (Negative); Blood Urine Neg (Negative); Glucose Urine UA Norm (Normal); Ketones Urine 1+ (Negative); Leukocyte Esterase Urine Negative (Negative); Nitrate Urine Negative (Negative); Protein Urine Trace (Negative); Specific Gravity, Urine 1.025 (1.005-1.030); Urobilinogen Urine Norm (Negative); pH Urine 5 (5-7)
[2023-01-16 11:48] LABS: Add Urine Culture? No; Bacteria Urine TRACE /hpf; Mucus Urine 2+ /hpf; WBC Urine RARE /hpf (0-5)
[2023-01-16] MEDS: haloperidol inj 5 mg/mL INJ 1 mL IVP (12:37)
[2023-01-16] MEDS: LORazepam 2 mg/mL INJ 1 mL IVP (12:37)
--- NOTE | 2023-01-16 14:57 | ED_ITS ---
HPI - Nausea/Vomiting/Diarrhea General: Chief complaint: GI Bleed Stated complaint: Black stool, Abd pain Time Seen by Provider: 01/16/23 09:50 Source: patient Mode of arrival: ambulatory History of Present Illness: [id number] male presents emergency room again with complaint nausea vomiting is now noted some black stools is concerned he may have a GI bleed he has been using a lot of Pepto-Bismol lately. He was seen multiple times recently. He has hyperemesis syndrome. His labs and CT and vitals have otherwise been stable. MD elicited complaint: nausea and vomiting Onset (ago): week(s) Description of vomiting: food contents and bilious Description of diarrhea: black tarry Associated nausea: Yes Associated abdominal pain: Yes Location of pain: Epigastric Pain consistency: constant Severity: moderate Quality: cramping Exacerbating factors: none Relieving factors: none Associated symtoms: Reports nausea; Denies altered mental status, anxiety, bloating, change in vision, chest pain, cough, diaphoresis, decreased urine output, dizziness, dysuria, epistaxis, fatigue, fecal incontinence, fevers/chills, headache(s), anorexia, malaise, myalgias, numbness, palpitations, rash, short of breath, syncope, tenesmus, tinnitus or weakness Review of Systems Const: Denies: fever(s), chills, fatigue, malaise or diaphoresis Eyes: Denies: change in vision ENMT: Denies: tinnitus or epistaxis Card: Denies: chest pain, palpitations or syncope Resp: Denies: dyspnea, productive cough or non-productive cough GI: Reports: abdominal pain, nausea, vomiting and melena; Denies: bloating or fecal incontinence : Denies: dysuria Skin/Breast: Denies: rash or pruritus Neuro: Denies: headache(s) or dizziness Psych: Denies: anxiety PFSH ED PFSH: Medical History (Updated 01/16/23 @ 17:42 by Jn Horan DO) Abdominal pain Cannabinoid hyperemesis syndrome GERD without esophagitis Surgical History History of colonoscopy 15 years History of esophagogastroduodenoscopy (04/08/22) S/P gastric surgery patient not sure of details but for bleeding - done laparoscopic Social History Smoking and tobacco status: current every day smoker cigarettes Packs smoked per day: 0.5 Alcohol intake: current Alcohol intake frequency: few times a week Physical Exam Const: COMMON NORMALS: no acute distress EXAM LIMITATIONS: no altered mental status GENERAL APPEARANCE: cooperative and comfortable ORIENTATION/CONSCIOUSNESS: Yes awake, Yes oriented to person, Yes oriented to place and Yes oriented to time HENMT: COMMON NORMALS: normocephalic, atraumatic and hearing grossly normal bilaterally HEAD & SCALP: normocephalic and atraumatic Resp: COMMON NORMALS: normal respiratory effort, No retractions, No use of accessory muscles and clear to auscultation bilaterally AUSCULTATION: clear to auscultation bilaterally Cardio: COMMON NORMALS: regular rate, regular rhythm and No murmurs present (Cardio) RATE: regular rate RHYTHM: regular rhythm GI: COMMON NORMALS: Soft to palpation and No hepatosplenomegaly present AUSCULTATION: Yes normoactive bowel sounds PALPATION: Yes Soft to palpation, No Tenderness to palpation present (GI), No Guarding due to palpation present (GI) and Yes No hepatosplenomegaly present Extremity: COMMON NORMALS: normal to inspection, capillary refill normal, no clubbing, cyanosis or edema, no calf tenderness and no pedal edema Neuro: SENSORIUM/ORIENTATION: Yes oriented to person, Yes oriented to place and Yes oriented to time Skin: COMMON NORMALS: no rashes or lesions noted GENERAL SKIN EXAM: no rashes or lesions noted Course Vital Signs: Vital signs: Vital Signs Temperature 97.7 F 01/16/23 10:09 Pulse Rate 89 01/16/23 10:09 Respiratory Rate 16 01/16/23 10:09 Blood Pressure 147/110 01/16/23 10:09 Pulse Oximetry 100 01/16/23 10:09 Oxygen Delivery Me thod 01/16/23 10:09 MDM - Nausea/Vomiting/Diarrhea Medical Decision Making Patient has been using Pepto-Bismol regularly. His BUN is normal his hemoglobin is stable discharge home follow-up with primary care. Patient has recurrent abdominal pain is suspect is related to his cannabinoid use. Encourage patient to abstain he has been given olanzapine and Ativan in the past continue to use those also recommend pantoprazole 40 mg daily. Medical Records I reviewed the patient's medical records. Lab Data I reviewed the patient's lab results. 01/16/23 10:40 01/16/23 10:40 Laboratory Results WBC 9.3 10^3/uL (4.0-10.0) 01/16/23 10:40 RBC 5.79 10^6/uL (4.1-5.3) H 01/16/23 10:40 Hgb 16.1 g/dL (11.7-16.6) 01/16/23 10:40 Hct 48.3 % (42.0-52.0) 01/16/23 10:40 MCV 83.4 fl (80-94) 01/16/23 10:40 MCH 27.8 pg (28.0-34.0) L 01/16/23 10:40 MCHC 33.3 g/dL (30.0-36.0) 01/16/23 10:40 RDW 15.3 % (12.1-15.1) H 01/16/23 10:40 Plt Count 275 10^3/cmm (130-400) 01/16/23 10:40 MPV 10.1 fL (7.4-10.4) 01/16/23 10:40 Neut % (Auto) 67.6 % 01/16/23 10:40 Lymph % (Auto) 19.9 % 01/16/23 10:40 [place] % (Auto) 11.2 % 01/16/23 10:40 Eos % (Auto) 0.5 % 01/16/23 10:40 Baso % (Auto) 0.5 % 01/16/23 10:40 Neut # (Auto) 6.29 10^3/uL (1.8-7.7) 01/16/23 10:40 Lymph # (Auto) 1.9 10^3/uL (0.8-4.8) 01/16/23 10:40 [place] # (Auto) 1.0 10^3/uL (0.2-0.9) H 01/16/23 10:40 Eos # (Auto) 0.1 10^3/uL (0.0-0.8) 01/16/23 10:40 Baso # (Auto) 0.1 10^3/uL (0.0-0.1) 01/16/23 10:40 Nucleated RBC % (auto) 0 % 01/16/23 10:40 Nucleated RBCs # 0.0 /100WBC 01/16/23 10:40 Sodium 135 mmol/L (136-145) L 01/16/23 10:40 Potassium 3.3 mmol/L (3.5-5.1) L 01/16/23 10:40 Chloride 96 mmol/L (98-107) L 01/16/23 10:40 Carbon Dioxide 24 mmol/L (22-29) 01/16/23 10:40 Anion Gap 18.3 (5-19) 01/16/23 10:40 BUN 11 mg/dL (6-20) 01/16/23 10:40 Creatinine 1.0 mg/dL (0.7-1.2) 01/16/23 10:40 GFR Calculation 85.0 mL/min (90-130) L 01/16/23 10:40 Glucose 97 mg/dL (65-115) 01/16/23 10:40 Calculated Osmolality 279 mOsm/kg (285-295) L 01/16/23 10:40 Calcium 9.8 mg/dL (8.5-10.5) 01/16/23 10:40 Total Bilirubin 0.7 mg/dL (0.15-1.2) 01/16/23 10:40 AST 20 U/L (0-40) 01/16/23 10:40 ALT 12 U/L (0-41) 01/16/23 10:40 Alkaline Phosphatase 68 U/L (40-130) 01/16/23 10:40 Total Protein 7.8 g/dL (6.6-8.7) 01/16/23 10:40 Albumin 4.7 g/dL (3.5-5.2) 01/16/23 10:40 Globulin 3.1 g/dL (1.3-4.6) 01/16/23 10:40 Urine Color Yellow (Yellow) 01/16/23 10:33 Urine Appearance Clear (CLEAR) 01/16/23 10:33 Urine pH 5 (5-7) 01/16/23 10:33 Ur Specific [place] 1.025 (1.005-1.030) 01/16/23 10:33 Urine Protein Trace (Negative) 01/16/23 10:33 Urine Glucose (UA) Norm (Normal) 01/16/23 10:33 Urine Ketones 1+ (Negative) H 01/16/23 10:33 Urine Blood Neg (Negative) 01/16/23 10:33 Urine Nitrate Negative (Negative) 01/16/23 10:33 Urine Bilirubin Neg (Negative) 01/16/23 10:33 Urine Urobilinogen Norm mg/dL (Negative) 01/16/23 10:33 Ur Leukocyte Esterase Negative (Negative) 01/16/23 10:33 Urine RBC None /hpf (0-2) 01/16/23 10:33 Urine WBC Rare /hpf (0-5) 01/16/23 10:33 Ur Squamous Epith Cells None /hpf (0-5) 01/16/23 10:33 Amorphous Sediment Not Reportable 01/16/23 10:33 Urine Bacteria Trace /hpf (NONE) 01/16/23 10:33 Urine Mucus 2+ /hpf 01/16/23 10:33 Discharge Plan Discharge Patient Disposition: Home Clinical Impression: Chronic abdominal pain, Cannabinoid hyperemesis syndrome Condition: Stable Prescriptions: No Action pantoprazole [Protonix] 40 mg tablet,delayed release (DR/EC) 40 mg PO DAILY Qty: 60 0RF olanzapine 10 mg tablet 10 mg PO Q6H PRN (Reason: nausea and vomiting) Qty: 14 0RF lorazepam [Ativan] 2 mg tablet 2 mg PO Q6H PRN (Reason: nausea and vomiting) Qty: 14 0RF Discharge Orders: Discharge ED (Routine); Ordered 01/16/23 Ordered By: Jn Horan Referrals: Bishop Naqvi DO [Primary Care Provider] - Discharge Diet: Usual diet Discharge Activity: Increase activity as tolerated Patient Instructions: Abdominal Pain (ED), Opioid Safety, Pain Management Activity Restrictions/Additional Instructions: You are seen today for chronic abdominal pain. Review of your chart shows that you have had 8 or 9 CTs of the abdomen in the last 2 years. Your abdominal exam was benign and your labs did not show any significant abnormalities. The black stool is likely caused by the use of Pepto-Bismol. Suspect the chronic abd ominal pain is in part due to the use of cannabinoid products. Recommend that you abstain from these. You should follow-up with Dr. Baltazar as soon as you are able. Further evaluation including possible repeat EGD or referral to pain clinic can be directed by Giovanny as appropriate. Stand Alone Forms: Work/School Release Coding Level of Care Code ED Loan Originator for Rafiq Montes
--- NOTE | 2023-01-19 13:56 | DCPLANNER ---
manager human resources had message to schedule a follow up appointment for patient with his primary care physician, Dr. Gomes. manager human resources unable to speak with patient at this time, a voicemail was left for patient to return shelter case manager phone call.
== END 2023-01-16 13:27 | disposition home or self-care (01) ==
PROVIDERS: Emergency Provider Family Medicine; PCP Family Medicine
DX: R11.2 Nausea with vomiting, unspecified (principal); F12.90 Cannabis use, unspecified, uncomplicated; G89.29 Other chronic pain; R10.9 Unspecified abdominal pain; F17.210 Nicotine dependence, cigarettes, uncomplicated
CPT/HCPCS: 80053; 81001; 82274; 85025; 96361; 96372; 96374; 96375; 99284; J1630; J2060; J2550; J7030

== ENCOUNTER 2023-03-16 06:42 | Emergency (ER) | payer SELFPAY ==
[2023-03-16 06:52] VITALS: BP 152/111; PULSE 97; RESP 18; TEMP 37.1; O2SAT 97; BMI 21.9
--- NOTE | 2023-03-16 07:05 | XR_ITS ---
WS: [id number] PORTABLE CHEST HISTORY: chest pain COMPARISON: 01/14/2023 Lungs are clear and well expanded. No pleural effusion or pneumothorax. Cardiac size: Normal. Mediastinum/Aorta: Normal mediastinum. No osseous abnormality seen. XR/XR chest 1V portable [id number] IMPRESSION: Unremarkable portable chest.
--- NOTE | 2023-03-16 07:06 | ED_ITS ---
HPI - Chest Pain General: Chief Complaint: Chest Pain Stated Complaint: Right side rib pain Time Seen by Provider: 03/16/23 06:59 Source: patient Mode of arrival: ambulatory Limitations: no limitations History of Present Illness: Patient is a 38-year-old male who presents to the ED today with a complaint of chest pain, right rib pain, abdominal pain, nausea, vomiting. Patient has a longstanding history of abdominal pains with nausea and vomiting. He has a known history of hyperemesis cannabinoid syndrome and continues to smoke marijuana. States a few months ago he decided to stop/cut back and now only smokes 1-2 times a month. Smoked yesterday to try and help symptoms. He has underwent multiple multiple CT scans (at least 9 since 2019) and ultrasounds of his abdomen none of which ever reveal any acute pathology. He states a previous history of heavy alcohol (reports he no longer drinks) and at one point did have a GI bleed and looking at previous documentation it looks like he may have had an esophageal varices banded previously. Patient underwent EGD by Dr. Alas approximately a year ago. That report was normal however pathology specimen obtained showing gastritis. Patient states he takes acid reducers that he gets from the [employer] store daily. Denies bloody emesis. No complaints of dark/black/tarry stools. MD complaint: chest pain and other (abdominal pain, N/V) Pertinent past history: other (hyperemesis cannabinoid syndrome, gastritis) Onset (ago): day(s) Timing of current episode: constant Prior episodes: Yes Pain location: right chest and other (abdomen) Severity: severe Quality: burning and other (cramping) Relieving factors: nothing Exacerbating factors: nothing Associated symptoms: Reports abdominal pain, nausea and vomiting; Deny dyspnea, fever(s), palpitations or syncope Treatment prior to arrival: none Risk Factors: Coronary artery disease risk factors: none Thoracic aortic dissection risk factors: none Review of Systems Const: Denies: fever(s), chills, body aches, fatigue or malaise Eyes: Denies: change in vision or blurry vision Card: Reports: chest pain; Denies: palpitations, irregular heart rhythm, edema, swelling of feet/ankles, lightheadedness, syncope, pre-syncope, dyspnea on exertion, orthopnea, leg pain with exertion or acrocyanosis Resp: Denies: dyspnea, productive cough or pain on inspiration GI: Reports: abdominal pain, nausea, vomiting, heartburn and GI cramping; Denies: hematemesis, diarrhea, pain on defecation, rectal pain, rectal swelling, hematochezia or melena : Denies: flank pain, difficulty urinating or dysuria Musc: Denies: neck pain, back pain, extremity pain, extremity swelling or joint pain Skin/Breast: Denies: rash Neuro: Denies: headache(s), numbness in extremities, weakness in extremities, sensory changes or dizziness PFSH ED PFSH: Medical History Abdominal pain Cannabinoid hyperemesis syndrome GERD without esophagitis Surgical History History of colonoscopy 15 years History of esophagogastroduodenoscopy (04/08/22) S/P gastric surgery patient not sure of details but for bleeding - done laparoscopic Social History Smoking and tobacco status: current every day smoker cigarettes Packs smoked per day: 0.5 Alcohol intake: current Alcohol intake frequency: few times a week Substance/Drug Use: current Substance/Drug use frequency: few times a month Physical Exam Const: COMMON NORMALS: average body habitus, patient oriented x3, no limitations, alert and well nourished GENERAL APPEARANCE: in distress and anxious ORIENTATION/CONSCIOUSNESS: Yes awake, Yes oriented to person, Yes oriented to place and Yes oriented to time OTHER: patient is flailing around on the bed rolling from side to side continuously grabbing chest, right ribs, abdomen HENMT: COMMON NORMALS: normocephalic and atraumatic HEAD & SCALP: normal to inspection, normocephalic and atraumatic TEETH & GINGIVA: Yes poor dentition Eye: GENERAL EYE: appearance normal, both eyes and all related structures Neck/C-Spine: COMMON NORMALS: full ROM and no lymphadenopathy GENERAL: Yes normal visual inspection Chest: COMMONS NORMALS: normal inspection of the chest OTHER: reports pain to R lateral lower ribs Resp: COMMON NORMALS: normal respiratory effort and clear to auscultation bilaterally EFFORT & INSPECTION: Yes tachypneic (anxious ) AUSCULTATION: clear to auscultation bilaterally Cardio: COMMON NORMALS: regular rate and regular rhythm RATE: regular rate RHYTHM: regular rhythm GI: COMMON NORMALS: Normal to inspection, nondistended, normoactive bowel sounds present, Soft to palpation, No hepatosplenomegaly present and no masses INSPECTION: Yes normal to inspection AUSCULTATION: Yes normoactive bowel sounds PALPATION: Yes Soft to palpation, Yes Tenderness to palpation present (GI) (diffuse), Yes Guarding due to palpation present (GI) (diffuse), No Rigid due to palpation and Yes No hepatosplenomegaly present : COMMON NORMALS: Yes no CVA tenderness BLADDER/KIDNEY EXAM: Yes no CVA tenderness Back/Pelvis: COMMON NORMALS: no CVA tenderness, thoracic and lumbar spine normal to inspection, no thoracic nor lumbar tenderness and thoraco-lumbar ROM normal Extremity: COMMON NORMALS: normal to inspection GENERAL: Yes normal exam except as noted Neuro: MARLIN COMA SCALE: document GCS findings [place] coma scale eye opening: Spontaneous Marlin coma scale verbal response: Orientated Marlin coma scale motor response: Obey commands Marlin coma scale total score: 15 COMMON NORMALS: patient oriented x3, moves all extremities, no focal motor deficits, no sensory deficits noted and gait normal SENSORIUM/ORIENTATION: Yes alert, Yes oriented to person, Yes oriented to place and Yes oriented to time Skin: COMMON NORMALS: no rashes or lesions noted GENERAL SKIN EXAM: no rashes or lesions noted Course Reevaluation(s): Reevaluation #1: After fluids/IV Haldol and Ativan patient is resting comfortably in NAD. Vital Signs: Vital signs: Vital Signs Temperature 98.7 F 03/16/23 06:52 Pulse Rate 97 03/16/23 06:52 Respiratory Rate 18 03/16/23 06:52 Blood Pressure 152/111 03/16/23 06:52 Pulse Oximetry 100 03/16/23 07:34 Oxygen Delivery Me thod Room Air 03/16/23 07:34 MDM - Chest Pain Medical Decision Making Patient is markedly improved after IV fluids, Haldol, Ativan. Vital signs are stable. Blood work showing probable hemoconcentration CBC. On his chemistries Minor elevations to his BUNs/Cr at 24/1.4. Gap is elevated at 24.5. Bicarb of 18. This most likely is secondary to lack of intake over the past 2 to 3 days. Patient was given 2 L of fluids here. Minor bump in his bilirubin at 1.6. He has had this previously and is nonspecific. Remainder of LFTs are normal. Lipase is normal. At this time I highly suspect patient's symptoms are secondary to hyperemesis cannabis syndrome as his presentation is identical to every other case I have had of this. He did reportedly cut back on marijuana use which is at least a good start although I explained to him that patients who have smoked habitually/daily for 10+ years are going to have to abstain from use for more than a few months to see any notable results. Will place him on olanzapine/ativan at home for the next few days. Return to ED precautions given otherwise I would like him to follow up with PCP. Lab Data 03/16/23 07:20 03/16/23 07:20 Radiology Impressions Chest X-Ray 03/16/23 07:05 IMPRESSION: Unremarkable portable chest. Laboratory Results WBC 12.9 10^3/uL (4.0-10.0) H 03/16/23 07:20 RBC 6.55 10^6/uL (4.1-5.3) H 03/16/23 07:20 Hgb 17.9 g/dL (11.7-16.6) H 03/16/23 07:20 Hct 54.5 % (42.0-52.0) H 03/16/23 07:20 MCV 83.2 fl (80-94) 03/16/23 07:20 MCH 27.3 pg (28.0-34.0) L 03/16/23 07:20 MCHC 32.8 g/dL (30.0-36.0) 03/16/23 07:20 RDW 15.5 % (12.1-15.1) H 03/16/23 07:20 Plt Count 303 10^3/cmm (130-400) 03/16/23 07:20 MPV 9.5 fL (7.4-10.4) 03/16/23 07:20 Neut % (Auto) 69.7 % 03/16/23 07:20 Lymph % (Auto) 17.4 % 03/16/23 07:20 [place] % (Auto) 11.9 % 03/16/23 07:20 Eos % (Auto) 0.2 % 03/16/23 07:20 Baso % (Auto) 0.5 % 03/16/23 07:20 Neut # (Auto) 9.01 10^3/uL (1.8-7.7) H 03/16/23 07:20 Lymph # (Auto) 2.3 10^3/uL (0.8-4.8) 03/16/23 07:20 [place] # (Auto) 1.5 10^3/uL (0.2-0.9) H 03/16/23 07:20 Eos # (Auto) 0.0 10^3/uL (0.0-0.8) 03/16/23 07:20 Baso # (Auto) 0.1 10^3/uL (0.0-0.1) 03/16/23 07:20 Nucleated RBC % (auto) 0 % 03/16/23 07:20 Nucleated RBCs # 0.0 /100WBC 03/16/23 07:20 Sodium 135 mmol/L (136-145) L 03/16/23 07:20 Potassium 3.5 mmol/L (3.5-5.1) 03/16/23 07:20 Chloride 96 mmol/L (98-107) L 03/16/23 07:20 Carbon Dioxide 18 mmol/L (22-29) L 03/16/23 07:20 Anion Gap 24.5 (5-19) H 03/16/23 07:20 BUN 24 mg/dL (6-20) H 03/16/23 07:20 Creatinine 1.4 mg/dL (0.7-1.2) H 03/16/23 07:20 GFR Calculation 57.3 mL/min (90-130) L 03/16/23 07:20 Glucose 112 mg/dL (65-115) 03/16/23 07:20 Calculated Osmolality 285 mOsm/kg (285-295) 03/16/23 07:20 Calcium 10.6 mg/dL (8.5-10.5) H 03/16/23 07:20 Total Bilirubin 1.6 mg/dL (0.15-1.2) H 03/16/23 07:20 AST 19 U/L (0-40) 03/16/23 07:20 ALT 10 U/L (0-41) 03/16/23 07:20 Alkaline Phosphatase 96 U/L (40-130) 03/16/23 07:20 Total Protein 8.6 g/dL (6.6-8.7) 03/16/23 07:20 Albumin 5.2 g/dL (3.5-5.2) 03/16/23 07:20 Globulin 3.4 g/dL (1.3-4.6) 03/16/23 07:20 Lipase 24 U/L (13-60) 03/16/23 07:20 Discharge Plan Discharge Patient Disposition: Home Clinical Impression: Cannabinoid hyperemesis syndrome Condition: Stable Prescriptions: Continued olanzapine 10 mg tablet 10 mg PO Q6H PRN (Reason: nausea and vomiting) Qty: 14 0RF Ativan 2 mg tablet 2 mg PO Q6H PRN (Reason: nausea and vomiting) Qty: 14 0RF Protonix 40 mg tablet,delayed release (DR/EC) 40 mg PO DAILY Qty: 30 0RF Discharge Orders: Discharge ED (Routine); Ordered 03/16/23 Ordered By: Atiya Bah Referrals: Bishop Naqvi DO [Primary Care Provider] - Coding Level of Care Code ED Patrol Deputy Sheriff for Rafiq Montes
[2023-03-16] MEDS: sodium chloride 0.9% 1,000 ML 999 ML IV ×2 (07:17→08:39)
[2023-03-16] MEDS: haloperidol inj 5 mg/mL INJ 1 mL 2.5 MG IVP (07:18)
[2023-03-16] MEDS: LORazepam 2 mg/mL INJ 1 mL IVP (07:19)
--- NOTE | 2023-03-16 07:19 | ECG_ITS ---
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 Measurements Intervals [place] Rate: 65 P: 34 [place]: 145 QRS: 93 QRSD: 122 T: 74 QT: 445 QTc: 463 Interpretive Statements SINUS RHYTHM BORDERLINE RIGHT AXIS DEVIATION [QRS AXIS > 90] MODERATE INTRAVENTRICULAR CONDUCTION DELAY [110+ ms QRS DURATION] Compared to ECG 01/14/2023 07:52:10 No significant changes Electronically Signed On 03-16-2023 8:23:21 CDT by Theresa Storm M.D. [id number]
[2023-03-16 07:29] LABS: Basophils # 0.1 10^3/uL (0.0-0.1); Basophils % 0.5 %; Eosinophils % 0.2 %; Hematocrit 54.5 % (42.0-52.0); Hemoglobin 17.9 g/dL (11.7-16.6); Lymphocytes # 2.3 10^3/uL (0.8-4.8); Lymphocytes % 17.4 %; Mean Corpuscular HGB Conc 32.8 g/dL (30.0-36.0); Mean Corpuscular Hemoglobin 27.3 pg (28.0-34.0); Mean Corpuscular Volume 83.2 fl (80-94); Mean Platelet Volume 9.5 fL (7.4-10.4); Monocytes # 1.5 10^3/uL (0.2-0.9); Monocytes % 11.9 %; Neutrophils # 9.01 10^3/uL (1.8-7.7); Neutrophils % 69.7 %; Nucleated Red Blood Cells % 0 %; Platelet Count 303 10^3/cmm (130-400); Red Blood Count 6.55 10^6/uL (4.1-5.3); Red Cell Distribution Width 15.5 % (12.1-15.1); White Blood Count 12.9 10^3/uL (4.0-10.0)
[2023-03-16 07:34] VITALS: O2SAT 100
[2023-03-16 07:52] LABS: Alkaline Phosphatase 96 U/L (40-130); Potassium 3.5 mmol/L (3.5-5.1)
[2023-03-16 08:01] LABS: Alanine Aminotransferase 10 U/L (0-41); Albumin Level 5.2 g/dL (3.5-5.2); Anion Gap 24.5 (5-19); Aspartate Amino Transferase 19 U/L (0-40); Blood Urea Nitrogen 24 mg/dL (6-20); Calcium 10.6 mg/dL (8.5-10.5); Carbon Dioxide 18 mmol/L (22-29); Chloride 96 mmol/L (98-107); Globulin 3.4 g/dL (1.3-4.6); Glomerular Filtration Rate 57.3 mL/min (90-130); Glucose 112 mg/dL (65-115); Lipase 24 U/L (13-60); Osmolality Calculated 285 mOsm/kg (285-295); Sodium 135 mmol/L (136-145); Total Bilirubin 1.6 mg/dL (0.15-1.2); Total Protein 8.6 g/dL (6.6-8.7)
== END 2023-03-16 09:50 | disposition home or self-care (01) ==
PROVIDERS: Emergency Provider Physician Assistant; PCP Family Medicine
DX: R11.10 Vomiting, unspecified (principal); F12.20 Cannabis dependence, uncomplicated
CPT/HCPCS: 71045; 80053; 83690; 85025; 93005; 96361; 96374; 96375; 99285; J1630; J2060; J7030

== ENCOUNTER 2023-06-09 08:07 | Emergency (ER) | payer SELFPAY ==
[2023-06-09 08:06] VITALS: BP 147/110; PULSE 116; TEMP 37; O2SAT 98; BMI 23.3
--- NOTE | 2023-06-09 08:13 | W.ED.ABDPA2 ---
HPI - Abdominal Pain General: Chief Complaint: Abdominal Pain Stated Complaint: Severe Abd Pain Time Seen by Provider: 06/09/23 08:07 Source: patient Mode of arrival: EMS Limitations: no limitations History of Present Illness: Patient is a 38-year-old male who presents to the emergency department via EMS complaining of severe abdominal pain onset last night. Patient states he was at work when he noticed rapid onset of diffuse abdominal pain, that has been constant and sharp since onset. There is no radiation of the pain, but he states that he feels it all over, primarily worse in the bilateral lower quadrants. He states he has had associated nausea and vomiting, with approximately 3 episodes of vomiting. He denies noticing any blood in his vomit. He states his pain is currently a 10/10, and received fentanyl in route by EMS. He denies any bowel changes, urinary changes, shortness of breath, back pain, fever, or any other symptoms. Patient has had multiple identical episodes over the past two years. He has had multiple CTs/US of his abdomen all of which not revealing much pathology. He states he smokes marijuana regularly. Upon reviewing his records, he has a history of cannabinoid hyperemesis syndrome. He denies any other drug use. He also has a history of colonoscopy and diagnostic EGD previously. MD elicited complaint: abdominal pain Pertinent past history: other (Cannabinoid hyperemesis syndrome) Onset (ago): day(s) (1) Pain Consistency: constant Location: Diffuse Severity: severe Pain scale (0-10): 10 Quality: sharp Radiation: none Exacerbating factors: movement Relieving factors: nothing Associated Symptoms: Reports nausea and vomiting; Denies chills, constipation, diarrhea, dysuria, fever(s), heartburn, hematochezia, hematuria, hematemesis, melena and syncope Review of Systems Const: Denies: fever(s), chills, body aches, fatigue or malaise Eyes: Denies: change in vision or blurry vision Card: Denies: chest pain, palpitations, irregular heart rhythm, lightheadedness, syncope or dyspnea on exertion Resp: Denies: dyspnea, productive cough or pain on inspiration GI: Reports: abdominal pain, nausea and vomiting; Denies: hematemesis, heartburn, diarrhea, constipation, hematochezia or melena : Denies: flank pain, difficulty urinating, dysuria or hematuria Musc: Denies: neck pain, back pain, extremity pain, extremity swelling or joint pain Skin/Breast: Denies: rash Neuro: Denies: headache(s), numbness in extremities, weakness in extremities, sensory changes or dizziness PFSH ED PFSH: Medical History Abdominal pain Cannabinoid hyperemesis syndrome GERD without esophagitis Surgical History History of colonoscopy 15 years History of esophagogastroduodenoscopy (04/08/22) S/P gastric surgery patient not sure of details but for bleeding - done laparoscopic Social History Smoking and tobacco status: current every day smoker cigarettes Packs smoked per day: 0.5 Alcohol intake: current Alcohol intake frequency: few times a week Substance/Drug Use: current Substance/Drug use frequency: few times a month Physical Exam Const: COMMON NORMALS: no acute distress, patient oriented x3, no limitations, alert and well nourished GENERAL APPEARANCE: cooperative, in distress and anxious ORIENTATION/CONSCIOUSNESS: Yes awake OTHER: Patient is seated on the exam table writhing in pain and clutching his stomach. Emesis bag from home in the sink reveals no signs of blood in his vomit. HENMT: COMMON NORMALS: normocephalic and atraumatic HEAD & SCALP: normal to inspection, normocephalic and atraumatic Eye: COMMON NORMALS: no scleral icterus GENERAL EYE: appearance normal, both eyes and all related structures Neck/C-Spine: COMMON NORMALS: full ROM, no lymphadenopathy, supple and no meningeal signs Chest: COMMONS NORMALS: normal inspection of the chest Resp: COMMON NORMALS: normal respiratory effort and clear to auscultation bilaterally AUSCULTATION: clear to auscultation bilaterally Cardio: COMMON NORMALS: regular rate and regular rhythm RATE: regular rate RHYTHM: regular rhythm GI: COMMON NORMALS: Normal to inspection, nondistended, normoactive bowel sounds present, Soft to palpation, No hepatosplenomegaly present and no masses INSPECTION: Yes normal to inspection PALPATION: Yes Soft to palpation, Yes Tenderness to palpation present (GI) Details: other (Diffuse tenderness to light palpation), Yes Guarding due to palpation present (GI), No Rigid due to palpation and Yes No hepatosplenomegaly present : COMMON NORMALS: Yes no CVA tenderness BLADDER/KIDNEY EXAM: Yes no CVA tenderness Back/Pelvis: COMMON NORMALS: no CVA tenderness, thoracic and lumbar spine normal to inspection, no thoracic nor lumbar tenderness and thoraco-lumbar ROM normal Extremity: COMMON NORMALS: normal to inspection GENERAL: Yes normal exam except as noted Neuro: MARLIN COMA SCALE: document GCS findings [place] coma scale eye opening: Spontaneous [place] coma scale verbal response: Orientated [place] coma scale motor response: Obey commands [place] coma scale total score: 15 COMMON NORMALS: patient oriented x3, moves all extremities, no focal motor deficits and no sensory deficits noted SENSORIUM/ORIENTATION: Yes alert MENINGEAL SIGNS: Yes no meningeal signs Skin: COMMON NORMALS: no rashes or lesions noted GENERAL SKIN EXAM: no rashes or lesions noted Course Vital Signs: Vital signs: Vital Signs Temperature 98.6 F 06/09/23 08:06 Pulse Rate 55 L 06/09/23 11:43 Respiratory Rate 16 06/09/23 11:43 Blood Pressure 140/81 06/09/23 11:43 Pulse Oximetry 96 06/09/23 10:31 Oxygen Delivery Me thod Room Air 06/09/23 08:06 MDM - Abdominal Pain Medical Decision Making Patient is a 38-year-old male who presents to the ED today with complaint of diffuse abdominal pain, nausea, vomiting. He has had multiple similar episodes over the past several years and has been diagnosed with hyperemesis cannabinoid syndrome. He continues to smoke marijuana habitually. Patient gained relief after IV Ativan and Haldol given here. Blood work showing mild hypokalemia at 2.9. He does have concomitant hypomagnesia. These were both replaced. He was given over a liter of fluids. Upon arrival patient did have some dark emesis in his basin-this was gastrooculted and was positive. Most likely this is secondary to a small tear from forceful vomiting. He has not had any further episode of vomiting while here. He will be discharged home with Carafate and Protonix and we will have him follow-up with general surgery for further evaluation and possible EGD. Strict return ED precautions given. We will place him on Olanzapine and Ativan for the hyperemesis cannabinoid nausea and vomiting. Also giving him a few potassium tablets. Strict return ED precautions given. Lab Data 06/09/23 08:46 06/09/23 08:46 Labs/Radiology: Laboratory Results WBC 16.68 10^3/uL (3.29-11.43) H 06/09/23 08:46 RBC 6.84 10^6/uL (3.85-5.65) H 06/09/23 08:46 Hgb 18.60 g/dL (11.27-16.99) H 06/09/23 08:46 Hct 56.2 % (37-53) H 06/09/23 08:46 MCV 82.2 fl (82-101) 06/09/23 08:46 MCH 27.2 pg (27-33) 06/09/23 08:46 MCHC 33.1 g/dL (30-55) 06/09/23 08:46 RDW 17.2 % (12.1-15.1) H 06/09/23 08:46 Plt Count 349 10^3/cmm (157-399) 06/09/23 08:46 MPV 10.6 fL (7.4-10.4) H 06/09/23 08:46 Neut % (Auto) 81.1 % 06/09/23 08:46 Lymph % (Auto) 8.8 % 06/09/23 08:46 [place] % (Auto) 9.0 % 06/09/23 08:46 Eos % (Auto) 0.1 % 06/09/23 08:46 Baso % (Auto) 0.5 % 06/09/23 08:46 Neut # (Auto) 13.52 10^3/uL (1.8-7.7) H 06/09/23 08:46 Lymph # (Auto) 1.5 10^3/uL (0.8-4.8) 06/09/23 08:46 [place] # (Auto) 1.5 10^3/uL (0.2-0.9) H 06/09/23 08:46 Eos # (Auto) 0.0 10^3/uL (0.0-0.8) 06/09/23 08:46 Baso # (Auto) 0.1 10^3/uL (0.0-0.1) 06/09/23 08:46 Nucleated RBC % (auto) 0 % 06/09/23 08:46 Nucleated RBCs # 0.0 /100WBC 06/09/23 08:46 Sodium 142 mmol/L (136-145) 06/09/23 08:46 Potassium 2.9 mmol/L (3.5-5.1) L 06/09/23 08:46 Chloride 101 mmol/L (98-107) 06/09/23 08:46 Carbon Dioxide 20 mmol/L (22-29) L 06/09/23 08:46 Anion Gap 23.9 (5-19) H 06/09/23 08:46 BUN 14 mg/dL (6-20) 06/09/23 08:46 Creatinine 1.1 mg/dL (0.7-1.2) 06/09/23 08:46 GFR Calculation 75.7 mL/min (90-130) L 06/09/23 08:46 Glucose 143 mg/dL (65-115) H 06/09/23 08:46 Calculated Osmolality 297 mOsm/kg (285-295) H 06/09/23 08:46 Calcium 10.8 mg/dL (8.5-10.5) H 06/09/23 08:46 Magnesium 1.5 mg/dL (1.7-2.3) L 06/09/23 08:46 Total Bilirubin 2.0 mg/dL (0.15-1.2) H 06/09/23 08:46 AST 21 U/L (0-40) 06/09/23 08:46 ALT 13 U/L (0-41) 06/09/23 08:46 Alkaline Phosphatase 137 U/L (40-130) H 06/09/23 08:46 Total Protein 9.1 g/dL (6.6-8.7) H 06/09/23 08:46 Albumin 5.8 g/dL (3.5-5.2) H 06/09/23 08:46 Globulin 3.3 g/dL (1.3-4.6) 06/09/23 08:46 Lipase 12 U/L (13-60) L 06/09/23 08:46 Gastric Occult Blood Positive (Negative) H 06/09/23 08:43 EKG Data EKG 1: I personally reviewed and interpreted this EKG as follows: EKG interpretation date: 06/09/23 EKG interpretation time: 08:30 Prior EKG tracings: available for review Interpretation: 08: Sinus bradycardia rate 49. Borderline right axis deviation. No signs of acute ST segment elevation. Discharge Plan Discharge Patient Disposition: Home Clinical Impression: Cannabinoid hyperemesis syndrome, Hypokalemia, Hypomagnesemia GI bleed Qualifiers: GI bleed type/associated pathology: unspecified gastrointestinal hemorrhage type Qualified Code(s): K92.2 - Gastrointestinal hemorrhage, unspecified Condition: Stable Prescriptions: New Carafate 1 gram tablet 1 g PO TID 14 Days Qty: 42 0RF potassium chloride 20 mEq tablet extended release 20 meq PO BID Qty: 14 0RF Protonix 40 mg tablet,delayed release (DR/EC) 40 mg PO DAILY 28 Days Qty: 28 0RF Ativan 2 mg tablet 2 mg PO Q6H PRN (Reason: nausea and vomiting) Qty: 14 0RF olanzapine 10 mg tablet 10 mg PO BID Qty: 14 0RF Discharge Orders: Discharge ED (Routine); Ordered 06/09/23 Ordered By: Atiya Bah Referrals: Bishop Naqvi DO [Primary Care Provider] - Activity Restrictions/Additional Instructions: As we discussed we will place you on medications to help with your nausea and vomiting. This most likely is related to your chronic marijuana use. I have placed a case management referral to get you set up with general surgery as the vomit today he did have blood in it. This could be related to a small tear or possible gastritis. This can be further evaluated with a EGD. I am also placing you on potassium pills as yours was low today. This can be rechecked through your primary care provider. You need to return to the emergency department for continued episodes of vomiting, severe abdominal pain, fevers, lightheadedness/dizziness/passing out episodes, black or tarry stools, or any other concerns you may have. Coding Level of Care Code ED Electromechanical Assembly Technician for Rafiq Montes
--- NOTE | 2023-06-09 08:23 | ECG_ITS ---
[facility] Test Date: 2023-06-09 Pat Name: Wilfrid Carlin Department: Room: Gender: Male Systems Engineer: : 1985 Requested By: Jn Rivera Order Number: [id number] Adalgisa MD: Prasad Brock M.D. Measurements Intervals [place] Rate: 49 P: 19 OR: 139 QRS: 91 QRSD: 115 T: 82 QT: 488 QTc: 444 Interpretive Statements SINUS BRADYCARDIA BORDERLINE RIGHT AXIS DEVIATION [QRS AXIS > 90] MODERATE INTRAVENTRICULAR CONDUCTION DELAY [110+ ms QRS DURATION] Compared to ECG 03/16/2023 07:31:32 Sinus rhythm no longer present Electronically Signed On 06-09-2023 20:02:42 CDT by Prasad Brock M.D. [id number]
[2023-06-09] MEDS: haloperidol inj 5 mg/mL INJ 1 mL 2.5 MG IVP (08:29)
[2023-06-09] MEDS: LORazepam 2 mg/mL INJ 1 mL IVP (08:29)
[2023-06-09] MEDS: sodium chloride 0.9% 1,000 ML 999 ML IV ×2 (08:29→10:29)
[2023-06-09 08:40] VITALS: BP 139/91; PULSE 60; RESP 12; O2SAT 95
[2023-06-09 09:07] LABS: Basophils # 0.1 10^3/uL (0.0-0.1); Basophils % 0.5 %; Eosinophils % 0.1 %; Hematocrit 56.2 % (37-53); Lymphocytes # 1.5 10^3/uL (0.8-4.8); Lymphocytes % 8.8 %; Mean Corpuscular HGB Conc 33.1 g/dL (30-55); Mean Corpuscular Hemoglobin 27.2 pg (27-33); Mean Corpuscular Volume 82.2 fl (82-101); Mean Platelet Volume 10.6 fL (7.4-10.4); Monocytes # 1.5 10^3/uL (0.2-0.9); Neutrophils # 13.52 10^3/uL (1.8-7.7); Neutrophils % 81.1 %; Nucleated Red Blood Cells % 0 %; Platelet Count 349 10^3/cmm (157-399); Red Blood Count 6.84 10^6/uL (3.85-5.65); Red Cell Distribution Width 17.2 % (12.1-15.1); White Blood Count 16.68 10^3/uL (3.29-11.43)
[2023-06-09 09:15] LABS: Alanine Aminotransferase 13 U/L (0-41); Albumin Level 5.8 g/dL (3.5-5.2); Alkaline Phosphatase 137 U/L (40-130); Anion Gap 23.9 (5-19); Aspartate Amino Transferase 21 U/L (0-40); Blood Urea Nitrogen 14 mg/dL (6-20); Calcium 10.8 mg/dL (8.5-10.5); Carbon Dioxide 20 mmol/L (22-29); Chloride 101 mmol/L (98-107); Globulin 3.3 g/dL (1.3-4.6); Glomerular Filtration Rate 75.7 mL/min (90-130); Glucose 143 mg/dL (65-115); Lipase 12 U/L (13-60); Magnesium 1.5 mg/dL (1.7-2.3); Osmolality Calculated 297 mOsm/kg (285-295); Sodium 142 mmol/L (136-145); Total Protein 9.1 g/dL (6.6-8.7)
[2023-06-09 09:18] LABS: Potassium 2.9 mmol/L (3.5-5.1)
[2023-06-09 09:44] LABS: Gastricult Occult Blood Positive (Negative)
[2023-06-09] MEDS: potassium chloride ER 20 mEq Tablet 40 MEQ PO (10:06)
[2023-06-09] MEDS: metoclopramide 5 mg/mL SDV 2 mL 10 MG IVP (10:29)
[2023-06-09 10:31] VITALS: BP 152/116; PULSE 61; RESP 18; O2SAT 96
--- NOTE | 2023-06-09 10:32 | PC.NURSE ---
PT PLACED ON CONTINUOUS NIBP,SPO2, AND CM
[2023-06-09] MEDS: LORazepam 2 mg/mL INJ 1 mL 1 MG IVP (11:16)
[2023-06-09 11:43] VITALS: BP 140/81; PULSE 55; RESP 16
--- NOTE | 2023-06-10 09:52 | DCPLANNER ---
Addendum entered by Irene Pimentel 06/15/23 15:04: biodiesel engineering manager received the following message from the general surgery clinic regarding follow up appointment: Called pt 06/14/23 unable to LVM. Mailed pt a letter and a FA packet. On 06/11/23 @ 09:15 Daria Miguel Wrote To General Surgery Front Off Called pt and left a vm 06/11/23. On 06/10/23 @ 09:58 Daria Miguel Wrote To General Surgery Front Off called and left vm 06/10/23. Patient is self pay with a bal of over 100,000 needs to speak with FA. Original Note: biodiesel engineering manager had message to schedule a follow up appointment for patient with general surgery. biodiesel engineering manager sent patients information to the front office staff at general surgery. Patients information will be printed and reviewed. Clinic will call patient with appointment information.
== END 2023-06-09 11:44 | disposition home or self-care (01) ==
PROVIDERS: Family Medicine; Emergency Provider Physician Assistant; PCP Family Medicine
DX: K92.2 Gastrointestinal hemorrhage, unspecified (principal); R11.2 Nausea with vomiting, unspecified; F12.90 Cannabis use, unspecified, uncomplicated; E87.6 Hypokalemia; E83.42 Hypomagnesemia; F17.210 Nicotine dependence, cigarettes, uncomplicated
CPT/HCPCS: 80053; 82271; 83690; 83735; 85025; 93005; 96361; 96365; 96375; 96376; 99285; J1630; J2060; J2765; J3475; J7030

== ENCOUNTER 2023-06-12 16:55 | Observation (INO) | payer OTHER, SELFPAY ==
[2023-06-12 17:16] VITALS: BP 147/110; PULSE 96; RESP 22; TEMP 36.5; O2SAT 94; BMI 23.3
[2023-06-12 18:06] LABS: Basophils # 0.1 10^3/uL (0.0-0.1); Basophils % 0.6 %; Eosinophils % 0.3 %; Hematocrit 53.6 % (37-53); Lymphocytes # 2.1 10^3/uL (0.8-4.8); Mean Corpuscular HGB Conc 33.2 g/dL (30-55); Mean Corpuscular Hemoglobin 27.6 pg (27-33); Mean Platelet Volume 9.9 fL (7.4-10.4); Monocytes # 1.3 10^3/uL (0.2-0.9); Monocytes % 9.2 %; Neutrophils # 10.28 10^3/uL (1.8-7.7); Neutrophils % 74.7 %; Nucleated Red Blood Cells % 0 %; Platelet Count 231 10^3/cmm (157-399); Red Blood Count 6.46 10^6/uL (3.85-5.65); Red Cell Distribution Width 16.6 % (12.1-15.1); White Blood Count 13.76 10^3/uL (3.29-11.43)
--- NOTE | 2023-06-12 18:17 | W.ED.ABDPA2 ---
HPI - Abdominal Pain General: Chief Complaint: Abdominal Pain Stated Complaint: abd pain Time Seen by Provider: 06/12/23 17:48 Source: patient and family Mode of arrival: ambulatory Limitations: no limitations History of Present Illness: Patient presents emergency department today again complaining of generalized right lower abdominal pains and vomiting. Brief chart review shows patient was here just a couple of days ago and, has been well-known to this emergency department for recurrent vomiting and abdominal pains. Patient has been diagnosed hyperemesis cannabis use now for months but continues to use. Patient was here just 3 days ago and the concern at that time was emesis positive for blood. A referral for an EGD was placed and family admits that they have missed the scheduling phone calls at least twice and have not gotten back with central scheduling. Patient reports he continues to have abdominal pains but is complaining more of a right lower quadrant pain. He continues to have frequent vomiting. Patient was provided medication at discharge from the emergency department 3 days ago and family states he has been taking it. When asked about his last marijuana use, patient did not provide an answer but family thinks it was Wednesday- days ago. Patient was found to have need to replace both potassium and magnesium at his last evaluation. Review of Systems General: Reports: 10 or more systems reviewed and unremarkable except in HPI and below PFSH ED PFSH: Medical History Abdominal pain Cannabinoid hyperemesis syndrome GERD without esophagitis Surgical History History of colonoscopy 15 years History of esophagogastroduodenoscopy (04/08/22) S/P gastric surgery patient not sure of details but for bleeding - done laparoscopic Social History Smoking and tobacco status: current every day smoker cigarettes Packs smoked per day: 0.5 Alcohol intake: current Alcohol intake frequency: few times a week Substance/Drug Use: current Substance/Drug use frequency: few times a month Physical Exam Const: COMMON NORMALS: patient oriented x3 and alert OTHER: Patient is writhing around in the bed and is unable to lay still. HENMT: COMMON NORMALS: normocephalic, atraumatic, hearing grossly normal bilaterally and moist oral mucous membranes HEAD & SCALP: normocephalic and atraumatic Eye: COMMON NORMALS: Equal, round and reactive pupils present, EOMs intact bilaterally and conjunctivae normal CONJUNCTIVA: Yes conjunctivae normal PUPIL: Yes Equal, round and reactive pupils present Neck/C-Spine: COMMON NORMALS: full ROM and no JVD Lymph: LYMPHATIC: no lymphadenopathy noted Resp: COMMON NORMALS: normal respiratory effort, No retractions, No use of accessory muscles and clear to auscultation bilaterally AUSCULTATION: clear to auscultation bilaterally Cardio: COMMON NORMALS: no JVD, regular rate and regular rhythm RATE: regular rate RHYTHM: regular rhythm GI: OTHER: Patient is a difficult examination as he is unable to lie still. Unable to appreciate bowel sounds throughout but, active bowel sounds were noted in various locations. Patient is otherwise guarded and indicates pain with all palpation throughout the abdomen-including the right lower quadrant but, does not seem to appreciate worsening pain on palpation to the right lower quadrant versus diffusely over the abdomen. : COMMON NORMALS: Yes no CVA tenderness BLADDER/KIDNEY EXAM: Yes no CVA tenderness Back/Pelvis: COMMON NORMALS: no CVA tenderness, no thoracic nor lumbar tenderness and thoraco-lumbar ROM normal Extremity: COMMON NORMALS: normal to inspection, full ROM and capillary refill normal Neuro: COMMON NORMALS: patient oriented x3 SENSORIUM/ORIENTATION: Yes alert Psych: COMMON NORMALS: mental status grossly normal, Normal thought process present, cooperative, normal affect and activity/motor behavior normal THOUGHT PROCESS: Normal thought process present Skin: COMMON NORMALS: no rashes or lesions noted and no wounds GENERAL SKIN EXAM: no rashes or lesions noted Course Vital Signs: Vital signs: Vital Signs Temperature 97.7 F 06/12/23 23:30 Pulse Rate 66 06/12/23 23:30 Respiratory Rate 16 06/13/23 00:27 Blood Pressure 157/107 06/12/23 23:30 Pulse Oximetry 100 06/12/23 23:30 Oxygen Delivery Me thod Room Air 06/13/23 00:29 MDM - Abdominal Pain Medical Decision Making Patient presents to the emergency department today for continued symptoms of abdominal pain, nausea, and vomiting. Patient has been seen and evaluated multiple times for these complaints and, has had a diagnosis of hyperemesis cannabis now for months. Patient was does have an EGD for concerns of blood in his vomit but, has not returned any of the scheduling phone calls that he has received this week. Patient complains today primarily of abdominal pain in the right lower quadrant. Labs are otherwise unremarkable or at his typical baseline for his chronic abdominal pains and vomiting episodes. He is receiving fluids and IV medications. We did attempt a p.o. challenge but, patient had vomiting 10 to 15 minutes after attempting fluids. Emesis is green like bile without signs of blood. I did discuss the case with Dr. Ceballos as the patient has not been successful at home with oral medications to stop the vomiting and, we have not been successful on IV medications here in the ER. He recommended to go ahead and get a CT scan but, patient will most likely have to be admitted for fluid maintenance. CT scan indicates no concerns for acute appendicitis superimposed on top of his chronic issues. Discussed with patient and that we can try 1 more p.o. challenge but, if not successful, would recommend admission for fluid maintenance. Patient attempted water and after only a few minutes, began vomiting again. I spoke to Dr. Murray regarding concerns for failure of outpatient management and failure of p.o. challenge here in the emergency department. He agreed, patient should be placed in observation for fluid maintenance. He indicated he was see the patient at bedside. We will defer further care and treatment to the hospitalist services at this time. Differential Diagnosis Likely abdominal pain (Chronic hyperemesis cannabis); Unlikely acute appendicitis, constipation, diverticulitis or gastroenteritis Lab Data 06/12/23 18:00 06/12/23 18:00 Labs/Radiology: Radiology Impressions Abdomen/Pelvis CT 06/12/23 20:21 IMPRESSION: 1. Borderline wall thickening of the urinary bladder. Mild cystitis is not excluded. 2. Otherwise, no acute findings. Laboratory Results WBC 13.76 10^3/uL (3.29-11.43) H 06/12/23 18:00 RBC 6.46 10^6/uL (3.85-5.65) H 06/12/23 18:00 Hgb 17.80 g/dL (11.27-16.99) H 06/12/23 18:00 Hct 53.6 % (37-53) H 06/12/23 18:00 MCV 83.0 fl (82-101) 06/12/23 18:00 MCH 27.6 pg (27-33) 06/12/23 18:00 MCHC 33.2 g/dL (30-55) 06/12/23 18:00 RDW 16.6 % (12.1-15.1) H 06/12/23 18:00 Plt Count 231 10^3/cmm (157-399) 06/12/23 18:00 MPV 9.9 fL (7.4-10.4) 06/12/23 18:00 Neut % (Auto) 74.7 % 06/12/23 18:00 Lymph % (Auto) 15.0 % 06/12/23 18:00 Rowan % (Auto) 9.2 % 06/12/23 18:00 Eos % (Auto) 0.3 % 06/12/23 18:00 Baso % (Auto) 0.6 % 06/12/23 18:00 Neut # (Auto) 10.28 10^3/uL (1.8-7.7) H 06/12/23 18:00 Lymph # (Auto) 2.1 10^3/uL (0.8-4.8) 06/12/23 18:00 Rowan # (Auto) 1.3 10^3/uL (0.2-0.9) H 06/12/23 18:00 Eos # (Auto) 0.0 10^3/uL (0.0-0.8) 06/12/23 18:00 Baso # (Auto) 0.1 10^3/uL (0.0-0.1) 06/12/23 18:00 Nucleated RBC % (auto) 0 % 06/12/23 18:00 Nucleated RBCs # 0.0 /100WBC 06/12/23 18:00 Sodium 136 mmol/L (136-145) 06/12/23 18:00 Potassium 3.2 mmol/L (3.5-5.1) L 06/12/23 18:00 Chloride 96 mmol/L (98-107) L 06/12/23 18:00 Carbon Dioxide 26 mmol/L (22-29) 06/12/23 18:00 Anion Gap 17.2 (5-19) 06/12/23 18:00 BUN 19 mg/dL (6-20) 06/12/23 18:00 Creatinine 1.1 mg/dL (0.7-1.2) 06/12/23 18:00 GFR Calculation 75.7 mL/min (90-130) L 06/12/23 18:00 Glucose 118 mg/dL (65-115) H 06/12/23 18:00 Estimat Average Glucose 105 06/12/23 18:00 Hemoglobin A1c 5.3 % (4.0-6.0) 06/12/23 18:00 Calculated Osmolality 285 mOsm/kg (285-295) 06/12/23 18:00 Lactic Acid 1.7 mmol/L (0.5-2.2) 06/12/23 18:00 Calcium 10.1 mg/dL (8.5-10.5) 06/12/23 18:00 Magnesium 1.7 mg/dL (1.7-2.3) 06/12/23 18:00 Total Bilirubin 2.4 mg/dL (0.15-1.2) H 06/12/23 18:00 AST 47 U/L (0-40) H 06/12/23 18:00 ALT 31 U/L (0-41) 06/12/23 18:00 Alkaline Phosphatase 90 U/L (40-130) 06/12/23 18:00 C-Reactive Protein 3.0 mg/L (0.0-4.9) 06/12/23 18:00 Total Protein 8.0 g/dL (6.6-8.7) 06/12/23 18:00 Albumin 5.0 g/dL (3.5-5.2) 06/12/23 18:00 Globulin 3.0 g/dL (1.3-4.6) 06/12/23 18:00 Triglycerides 84 mg/dL (0-150) 06/12/23 18:00 Cholesterol 142 mg/dL (0-200) 06/12/23 18:00 LDL Cholesterol, Calc 79 mg/dL (50-129) 06/12/23 18:00 HDL Cholesterol 46 mg/dL (60-100) L 06/12/23 18:00 LDL/HDL Ratio 1.72 RATIO (0.00-3.22) 06/12/23 18:00 Cholesterol/HDL Ratio 3.09 mg/dL (1.0-5.00) 06/12/23 18:00 Lipase 30 U/L (13-60) 06/12/23 18:00 Procalcitonin 0.09 ng/mL (0-0.5) 06/12/23 18:00 TSH 2.07 uIU/mL (0.27-4.20) 06/12/23 18:00 Urine Color Katharina (Yellow) 06/12/23 18:40 Urine Appearance Clear (CLEAR) 06/12/23 18:40 Urine pH 5 (5-7) 06/12/23 18:40 Ur Specific [place] 1.020 (1.005-1.030) 06/12/23 18:40 Urine Protein 1+ (Negative) H 06/12/23 18:40 Urine Glucose (UA) Norm (Normal) 06/12/23 18:40 Urine Ketones 1+ (Negative) H 06/12/23 18:40 Urine Blood Neg (Negative) 06/12/23 18:40 Urine Nitrate Positive (Negative) H 06/12/23 18:40 Urine Bilirubin 2+ (Negative) H 06/12/23 18:40 Urine Urobilinogen 4 mg/dL (Negative) H 06/12/23 18:40 Ur Leukocyte Esterase 1+ (Negative) H 06/12/23 18:40 Urine RBC 0-4 /hpf (0-2) H 06/12/23 18:40 Urine WBC 0-4 /hpf (0-5) H 06/12/23 18:40 Ur Squamous Epith Cells 0-4 /hpf (0-5) H 06/12/23 18:40 Amorphous Sediment Not Reportable 06/12/23 18:40 Urine Bacteria Trace /hpf (NONE) 06/12/23 18:40 Urine Mucus 4+ /hpf 06/12/23 18:40 Urine Opiates Screen Negative ng/mL (Negative) 06/12/23 18:40 Ur Barbiturates Screen Negative ng/mL (Negative) 06/12/23 18:40 Ur Phencyclidine Scrn Negative ng/mL (Negative) 06/12/23 18:40 Ur Amphetamines Screen Negative ng/mL (Negative) 06/12/23 18:40 U Benzodiazepines Scrn Positive ng/mL (Negative) H 06/12/23 18:40 Urine Cocaine Screen Negative ng/mL (Negative) 06/12/23 18:40 U Marijuana (THC) Screen Positive ng/mL (Negative) H 06/12/23 18:40 Discharge Plan Discharge Patient Disposition: Placed in Observation Admit Provider: Noman Cruz Clinical Impression: Cannabinoid hyperemesis syndrome, Abdominal pain Coding Level of Care Code ED [employer] Operator for Rafiq Montes
[2023-06-12] MEDS: sodium chloride 0.9% 1,000 ML 999 ML IV ×2 (18:28→19:55)
[2023-06-12] MEDS: haloperidol inj 5 mg/mL INJ 1 mL 2.5 MG IVP (18:30)
[2023-06-12] MEDS: LORazepam 2 mg/mL INJ 1 mL IVP (18:31)
[2023-06-12] MEDS: metoclopramide 5 mg/mL SDV 2 mL 10 MG IVP (18:33)
[2023-06-12 18:34] LABS: Alanine Aminotransferase 31 U/L (0-41); Alkaline Phosphatase 90 U/L (40-130); Anion Gap 17.2 (5-19); Aspartate Amino Transferase 47 U/L (0-40); Blood Urea Nitrogen 19 mg/dL (6-20); Calcium 10.1 mg/dL (8.5-10.5); Carbon Dioxide 26 mmol/L (22-29); Chloride 96 mmol/L (98-107); Glomerular Filtration Rate 75.7 mL/min (90-130); Glucose 118 mg/dL (65-115); Lipase 30 U/L (13-60); Magnesium 1.7 mg/dL (1.7-2.3); Osmolality Calculated 285 mOsm/kg (285-295); Potassium 3.2 mmol/L (3.5-5.1); Sodium 136 mmol/L (136-145); Total Bilirubin 2.4 mg/dL (0.15-1.2)
[2023-06-12 18:57] LABS: Amphetamines Screen Urine Negative (Negative); Barbiturates Screen Urine Negative (Negative); Benzodiazepines Screen Urine Positive (Negative); Cocaine Screen Urine Negative (Negative); Opiate Screen Urine Negative (Negative); PCP Screen Urine Negative (Negative); THC Screen Urine Positive (Negative)
[2023-06-12 19:11] LABS: Urine Appearance Clear (CLEAR); Urine Color Amber (Yellow); pH Urine 5 (5-7)
[2023-06-12 19:12] LABS: Add Urine Microscopic? YES; Bilirubin Urine 2+ (Negative); Blood Urine Neg (Negative); Glucose Urine UA Norm (Normal); Ketones Urine 1+ (Negative); Leukocyte Esterase Urine 1+ (Negative); Nitrate Urine Positive (Negative); Protein Urine 1+ (Negative); Urobilinogen Urine 4 mg/dL (Negative)
[2023-06-12 19:15] LABS: Add Urine Culture? No; Bacteria Urine TRACE /hpf; Mucus Urine 4+ /hpf; RBC Urine 0-4 /hpf (0-2); Squamous Epithelial Cell Urine 0-4 /hpf (0-5); WBC Urine 0-4 /hpf (0-5)
--- NOTE | 2023-06-12 20:21 | CTR_ITS ---
PROCEDURE INFORMATION: Exam: CT Abdomen And Pelvis With Contrast Exam date and time: 06/12/2023 8:30 PM Age: 38 years old Clinical indication: Nausea and vomiting; Abdominal pain; Localized; Right lower quadrant (rlq); Prior surgery; Surgery date: 6+ months; Surgery type: Gastric; Patient HX: Rlq pain with n/v. ; Additional info: N/v, rlq pain. TECHNIQUE: Imaging protocol: Computed tomography of the abdomen and pelvis with contrast. Radiation optimization: All CT scans at this facility use at least one of these dose optimization techniques: automated exposure control; mA and/or kV adjustment per patient size (includes targeted exams where dose is matched to clinical indication); or iterative reconstruction. Contrast material: OMNI 350; Contrast volume: 100 ml; Contrast route: INTRAVENOUS (IV); REPORTING DATA: Count of CT and Cardiac NM exams in prior 12 months: This patient has received 3 known CTs and 0 known cardiac nuclear medicine studies in the 12 months prior to the current study. COMPARISON: CT abdomen pelvis w con* [id number] 08/31/2022 10:56 AM RADIATION DOSE METRICS: Total DLP (mGy-cm): 395.43 FINDINGS: Liver: Normal. No mass. Gallbladder and bile ducts: Normal. No calcified stones. No ductal dilation. Pancreas: Normal. No ductal dilation. Spleen: Normal. No splenomegaly. Adrenal glands: Normal. No mass. Kidneys and ureters: Normal. No hydronephrosis. Stomach and bowel: Postsurgical changes of the stomach with clips and sutures. The small bowel and colon are unremarkable. No wall thickening or obstruction. Appendix: The appendix is visualized and is normal. Intraperitoneal space: Unremarkable. No free air. No significant fluid collection. Vasculature: Unremarkable. No abdominal aortic aneurysm. Lymph nodes: Unremarkable. No enlarged lymph nodes. Urinary bladder: Borderline wall thickening of the urinary bladder measuring 6 mm. Reproductive: The prostate measures 4.3 cm with a central calcification. Bones/joints: Unremarkable. No acute fracture. Soft tissues: Unremarkable. CT/CT abdomen pelvis w con* [id number] IMPRESSION: 1. Borderline wall thickening of the urinary bladder. Mild cystitis is not excluded. 2. Otherwise, no acute findings.
[2023-06-12] MEDS: iohexol 350 mg/mL 500 mL Btl (per mL) IV (20:32)
--- NOTE | 2023-06-12 22:44 | PM.HP ---
Providers/Chief Complaint Admitting Physician: Noman Cruz MD Primary Care Provider: Bishop Naqvi DO Chief Complaint: abd pain History of Present Illness Wilfrid Carlin is a 38 year old male with past medical history of gerd, who presents to [facility] for complaints of nausea and vomiting, patient reports daily marijunna use, he has had 1 er visit for hyperemesis on 06/09, patient reports recurrent nausea and vomiting and nonspecific abdominal pain, no fever, no chills, no flank pain, denies iv drug use, no hematemesis, no bloody or black stools, no history of food poisoning, no headache, no blurry vision, no diarrhea, Review of Systems Const: Denies: fever(s) or chills Eyes: Denies: change in vision ENMT: Denies: throat pain Card: Denies: chest pain or palpitations Resp: Denies: dyspnea GI: Reports: abdominal pain, nausea and vomiting; Denies: hematochezia or melena : Denies: flank pain, difficulty urinating or dysuria Musc: Denies: back pain Medications/Allergies Home Medications Medication Instructions Recorded Confirmed Last Taken Type lorazepam 2 mg tablet (Ativan) 2 mg PO Q6H PRN nausea and 06/09/23 Unknown Rx vomiting #14 tabs olanzapine 10 mg tablet 10 mg PO BID #14 tabs 06/09/23 Unknown Rx pantoprazole 40 mg tablet,delayed 40 mg PO DAILY 4 weeks #28 tabs 06/09/23 Unknown Rx release (Protonix) potassium chloride 20 mEq 20 meq PO BID #14 tabs 06/09/23 Unknown Rx tablet,extended release sucralfate 1 gram tablet (Carafate) 1 g PO TID 2 weeks #42 tabs 06/09/23 Unknown Rx Allergies Allergy/AdvReac Type Severity Reaction Status Date / Time No Known Allergies Allergy Verified 06/09/23 08:19 PFSH Acute PFSH: Medical History Abdominal pain Cannabinoid hyperemesis syndrome GERD without esophagitis Surgical History History of colonoscopy 15 years History of esophagogastroduodenoscopy (04/08/22) S/P gastric surgery patient not sure of details but for bleeding - done laparoscopic Social History Smoking and tobacco status: current every day smoker cigarettes Packs smoked per day: 0.5 Alcohol intake: current Alcohol intake frequency: few times a week Substance/Drug Use: current Substance/Drug use frequency: few times a month Vitals/I&O/Wt Last Vital Signs Temp 97.7 F 06/12/23 17:16 Pulse 96 06/12/23 17:16 Resp 22 H 06/12/23 17:16 BP 147/110 06/12/23 17:16 Pulse Ox 94 06/12/23 17:16 O2 Del Method Room Air 06/12/23 17:16 06/12/23 06/12/23 06/12/23 06:59 14:59 22:59 Intake Total 1999 Balance 1999 Weight last 48 hrs Weight 84.822 kg Physical Exam Const: COMMON NORMALS: no acute distress and patient oriented x3 GENERAL APPEARANCE: cooperative HENMT: COMMON NORMALS: normocephalic and Normal external nose present HEAD & SCALP: normocephalic FACE & SINUS: normal facial exam NOSE: Normal external nose present Eye: COMMON NORMALS: Equal, round and reactive pupils present and no scleral icterus CONJUNCTIVA: Yes conjunctivae normal Neck/C-Spine: COMMON NORMALS: full ROM, no lymphadenopathy and no JVD Lymph: LYMPHATIC: no lymphadenopathy noted Chest: COMMONS NORMALS: normal inspection of the chest Resp: COMMON NORMALS: normal respiratory effort, No retractions, No use of accessory muscles and clear to auscultation bilaterally AUSCULTATION: clear to auscultation bilaterally Cardio: COMMON NORMALS: regular rate, regular rhythm, S1 normal heart sound present, S2 normal heart sound present, No murmurs present (Cardio) and Peripheral pulses 2+ throughout RATE: regular rate RHYTHM: regular rhythm HEART SOUNDS: S1 normal heart sound present and S2 normal heart sound present PERIPHERAL PULSES: Peripheral pulses 2+ throughout GI: COMMON NORMALS: Normal to inspection, nondistended, normoactive bowel sounds present, Soft to palpation and non-tender PALPATION: Yes Soft to palpation : BLADDER/KIDNEY EXAM: Yes no CVA tenderness Back/Pelvis: COMMON NORMALS: no CVA tenderness Extremity: COMMON NORMALS: normal to inspection Neuro: COMMON NORMALS: patient oriented x3, CN's II-XII intact bilaterally and moves all extremities MENINGEAL SIGNS: Yes no meningeal signs OTHER: anxious pacing around er room Psych: COMMON NORMALS: mental status grossly normal Skin: COMMON NORMALS: turgor normal and no jaundice GENERAL SKIN EXAM: turgor normal Data 06/12/23 18:00 06/12/23 18:00 A&P Assessment and plan (1) Cannabinoid hyperemesis syndrome: (2) Hypokalemia: (3) Dehydration: (4) Intractable nausea and vomiting: Plan cannabinoid hyperemesis syndrome -clear liquid -IVF -nausea control -reglan -zofran -morphine fro pain control -lovenox for dvt prophylaxis -monitor bilirubin, ast -replace potassium -uti rocephin, will order urine g/c -prostate is enlarged needs to see urology Attestations Medical Necessity Statement*: patient requires hospitalization, outpatient with observation, for cannabinoid hyperemesis syndrome, dehydration Diagnoses Cannabinoid hyperemesis syndrome R11.2; F12.90 Hypokalemia E87.6 Dehydration E86.0 Intractable nausea and vomiting R11.2
[2023-06-12 23:11] VITALS: BP 158/106; PULSE 66; RESP 18; O2SAT 99
--- NOTE | 2023-06-12 23:15 | PC.NURSE ---
report called to lotus on med/surg @ [phone]
[2023-06-12 23:18] VITALS: BP 158/06; PULSE 66; O2SAT 100
[2023-06-12 23:30] VITALS: BP 157/107; PULSE 66; RESP 22; TEMP 36.5; O2SAT 100
[2023-06-12 23:32] LABS: Lactic Sepsis W/Reflex 1.7 mmol/L (0.5-2.2)
[2023-06-12 23:37] LABS: Procalcitonin 0.09 ng/mL (0-0.5)
[2023-06-13] VITALS (9 sets, daily range): BP systolic 121–150; BP diastolic 71–94; PULSE 53–61; RESP 16–22; TEMP 36.4–36.9; O2SAT 97–100
[2023-06-13] MEDS: sodium chloride 0.9% 1,000 ML 100 ML IV ×2 (00:16→12:25)
[2023-06-13] MEDS: potassium chloride ER 20 mEq Tablet 40 MEQ PO (00:16)
[2023-06-13] MEDS: cefTRIAXone 1,000 MG in sodium chloride 0.9% (plus) 50 ML 100 MG IV (00:16)
[2023-06-13] MEDS: enoxaparin 40 mg/0.4 mL Syringe SUBCUT (00:17)
[2023-06-13 00:18] LABS: Estmated Average Glucose 105; Hemoglobin A1C 5.3 % (4.0-6.0)
[2023-06-13 00:26] LABS: Chol HDL Ratio 3.09 mg/dL (1.0-5.00); Cholesterol 142 mg/dL (0-200); HDL Cholesterol 46 mg/dL (60-100); LDL Cholesterol Calculated 79 mg/dL (50-129); LDL HDL Ratio 1.72 RATIO (0.00-3.22); Thyroid Stimulating Hormone 2.07 uIU/mL (0.27-4.20); Triglycerides 84 mg/dL (0-150)
[2023-06-13] MEDS: morphine 4 mg/mL SDV 1 mL 2 MG IVP ×4 (00:27→14:56)
[2023-06-13] MEDS: ondansetron 2 mg/ML SDV 2 mL 4 MG IVP ×2 (00:40→08:50)
[2023-06-13] MEDS: nicotine 14 mg Patch 1 PATCH TRANSDERMA (01:30)
[2023-06-13] MEDS: metoclopramide 5 mg/mL SDV 2 mL IVP (05:29)
[2023-06-13] MEDS: pantoprazole DR 40 mg Tablet PO (08:31)
[2023-06-13] MEDS: potassium chloride ER 20 mEq Tablet PO ×2 (08:31→17:50)
[2023-06-13] MEDS: sucralfate 1 gm Tablet PO ×2 (08:31→14:56)
[2023-06-13] MEDS: OLANZapine 10 mg TABLET PO ×2 (08:31→17:50)
--- NOTE | 2023-06-13 14:16 | PC.NURSE ---
verbal order from Dr. Novak to apply scopolamine patch now. If patients nausea resolves he may go home.
[2023-06-13] MEDS: scopolamine 1.5 Patch 1 PATCH TRANSDERMA (14:55)
--- NOTE | 2023-06-13 17:25 | P.DS_ITS ---
Discharge Providers Date of Admission: 06/12/23 23:56 Date of Discharge: June 13, 2023 Attending Provider at Admission: Noman Cruz MD Attending Provider at Discharge: Violet Novak MD Primary Care Provider: Bishop Naqvi DO Diagnoses at Discharge Discharge Diagnosis (1) Cannabinoid hyperemesis syndrome: Status: Acute (2) Hypokalemia: Status: Acute (3) Dehydration: Status: Acute (4) Intractable nausea and vomiting: Status: Acute Reason for Visit Reason for Visit: abd pain Brief History: Wilfrid Carlin is a 38 year old male with past medical history of gerd, who presented to [facility] for complaints of nausea and vomiting, patient reports daily marijunna use, previous visit for hyperemesis on 06/09, patient reports recurrent nausea and vomiting and nonspecific abdominal pain, no fever, no chills, no flank pain, denies iv drug use, no hematemesis, no bloody or black stools, no history of food poisoning, no headache, no blurry vision, no diarrhea. He had leukocytosis, hypokalemia and dehydration, he was admitted in observation, symptoms imporved with symptomatic treatment with reglan and scopolamine patch. hypokalemia was corrected. Incidentally UA + for nitrite and leukocyte esterase will Joey 9 any symptoms of dysuria or difficulty urination. Leukocytosis was improving by discharge. Trending past numbers it a ppears patient was white blood cell count ranges between 11-15 on previous occasions. Today it is trending down from 16-13 previously in February of this was at 12.9. He is being discharged with 3 days of oral ciprofloxacin while pending urine cultures. Overall clinically improved, discharged home with . Physical Exam Narrative: General: No acute distress, AO x3 HEENT: PERRLA, pupils bilaterally equal and reactive, pallors not present Chest: Normal vesicular breath sounds, no added sounds, equal good air entry bilaterally CVS: S1-S2 regular, no murmurs, no tachycardia, no gallops, no rubs Abdomen: Soft, nontender, no organomegaly, bowel sounds present Neuro: No focal deficits, no facial deformity, AO x3, power 5/5 in all limbs Discharge Data Studies Completed and Pending Completed Studies During Hospitalization Category Date Time Status CT abdomen pelvis w con* [id number] Stat Cat Scan 06/12/23 20:21 Completed Pending at discharge Category Date Time Status Blood Culture Routine Lab 06/12/23 23:56 Results Chlamydia/Gonorrh RNA,TMA URO Routine Lab 06/12/23 22:52 Received Urine Culture Stat Lab 06/12/23 18:40 Received Radiology Impressions Abdomen/Pelvis CT 06/12/23 20:21 IMPRESSION: 1. Borderline wall thickening of the urinary bladder. Mild cystitis is not excluded. 2. Otherwise, no acute findings. Laboratory Results WBC 13.76 10^3/uL (3.29-11.43) H 06/12/23 18:00 RBC 6.46 10^6/uL (3.85-5.65) H 06/12/23 18:00 Hgb 17.80 g/dL (11.27-16.99) H 06/12/23 18:00 Hct 53.6 % (37-53) H 06/12/23 18:00 MCV 83.0 fl (82-101) 06/12/23 18:00 MCH 27.6 pg (27-33) 06/12/23 18:00 MCHC 33.2 g/dL (30-55) 06/12/23 18:00 RDW 16.6 % (12.1-15.1) H 06/12/23 18:00 Plt Count 231 10^3/cmm (157-399) 06/12/23 18:00 MPV 9.9 fL (7.4-10.4) 06/12/23 18:00 Neut % (Auto) 74.7 % 06/12/23 18:00 Lymph % (Auto) 15.0 % 06/12/23 18:00 Harmon % (Auto) 9.2 % 06/12/23 18:00 Eos % (Auto) 0.3 % 06/12/23 18:00 Baso % (Auto) 0.6 % 06/12/23 18:00 Neut # (Auto) 10.28 10^3/uL (1.8-7.7) H 06/12/23 18:00 Lymph # (Auto) 2.1 10^3/uL (0.8-4.8) 06/12/23 18:00 Harmon # (Auto) 1.3 10^3/uL (0.2-0.9) H 06/12/23 18:00 Eos # (Auto) 0.0 10^3/uL (0.0-0.8) 06/12/23 18:00 Baso # (Auto) 0.1 10^3/uL (0.0-0.1) 06/12/23 18:00 Nucleated RBC % (auto) 0 % 06/12/23 18:00 Nucleated RBCs # 0.0 /100WBC 06/12/23 18:00 Sodium 136 mmol/L (136-145) 06/12/23 18:00 Potassium 3.2 mmol/L (3.5-5.1) L 06/12/23 18:00 Chloride 96 mmol/L (98-107) L 06/12/23 18:00 Carbon Dioxide 26 mmol/L (22-29) 06/12/23 18:00 Anion Gap 17.2 (5-19) 06/12/23 18:00 BUN 19 mg/dL (6-20) 06/12/23 18:00 Creatinine 1.1 mg/dL (0.7-1.2) 06/12/23 18:00 GFR Calculation 75.7 mL/min (90-130) L 06/12/23 18:00 Glucose 118 mg/dL (65-115) H 06/12/23 18:00 Estimat Average Glucose 105 06/12/23 18:00 Hemoglobin A1c 5.3 % (4.0-6.0) 06/12/23 18:00 Calculated Osmolality 285 mOsm/kg (285-295) 06/12/23 18:00 Lactic Acid 1.7 mmol/L (0.5-2.2) 06/12/23 18:00 Calcium 10.1 mg/dL (8.5-10.5) 06/12/23 18:00 Magnesium 1.7 mg/dL (1.7-2.3) 06/12/23 18:00 Total Bilirubin 2.4 mg/dL (0.15-1.2) H 06/12/23 18:00 AST 47 U/L (0-40) H 06/12/23 18:00 ALT 31 U/L (0-41) 06/12/23 18:00 Alkaline Phosphatase 90 U/L (40-130) 06/12/23 18:00 C-Reactive Protein 3.0 mg/L (0.0-4.9) 06/12/23 18:00 Total Protein 8.0 g/dL (6.6-8.7) 06/12/23 18:00 Albumin 5.0 g/dL (3.5-5.2) 06/12/23 18:00 Globulin 3.0 g/dL (1.3-4.6) 06/12/23 18:00 Triglycerides 84 mg/dL (0-150) 06/12/23 18:00 Cholesterol 142 mg/dL (0-200) 06/12/23 18:00 LDL Cholesterol, Calc 79 mg/dL (50-129) 06/12/23 18:00 HDL Cholesterol 46 mg/dL (60-100) L 06/12/23 18:00 LDL/HDL Ratio 1.72 RATIO (0.00-3.22) 06/12/23 18:00 Cholesterol/HDL Ratio 3.09 mg/dL (1.0-5.00) 06/12/23 18:00 Lipase 30 U/L (13-60) 06/12/23 18:00 Procalcitonin 0.09 ng/mL (0-0.5) 06/12/23 18:00 TSH 2.07 uIU/mL (0.27-4.20) 06/12/23 18:00 Urine Color Katharina (Yellow) 06/12/23 18:40 Urine Appearance Clear (CLEAR) 06/12/23 18:40 Urine pH 5 (5-7) 06/12/23 18:40 Ur Specific [place] 1.020 (1.005-1.030) 06/12/23 18:40 Urine Protein 1+ (Negative) H 06/12/23 18:40 Urine Glucose (UA) Norm (Normal) 06/12/23 18:40 Urine Ketones 1+ (Negative) H 06/12/23 18:40 Urine Blood Neg (Negative) 06/12/23 18:40 Urine Nitrate Positive (Negative) H 06/12/23 18:40 Urine Bilirubin 2+ (Negative) H 06/12/23 18:40 Urine Urobilinogen 4 mg/dL (Negative) H 06/12/23 18:40 Ur Leukocyte Esterase 1+ (Negative) H 06/12/23 18:40 Urine RBC 0-4 /hpf (0-2) H 06/12/23 18:40 Urine WBC 0-4 /hpf (0-5) H 06/12/23 18:40 Ur Squamous Epith Cells 0-4 /hpf (0-5) H 06/12/23 18:40 Amorphous Sediment Not Reportable 06/12/23 18:40 Urine Bacteria Trace /hpf (NONE) 06/12/23 18:40 Urine Mucus 4+ /hpf 06/12/23 18:40 Urine Opiates Screen Negative ng/mL (Negative) 06/12/23 18:40 Ur Barbiturates Screen Negative ng/mL (Negative) 06/12/23 18:40 Ur Phencyclidine Scrn Negative ng/mL (Negative) 06/12/23 18:40 Ur Amphetamines Screen Negative ng/mL (Negative) 06/12/23 18:40 U Benzodiazepines Scrn Positive ng/mL (Negative) H 06/12/23 18:40 Urine Cocaine Screen Negative ng/mL (Negative) 06/12/23 18:40 U Marijuana (THC) Screen Positive ng/mL (Negative) H 06/12/23 18:40 Vitals Last Vital Signs Temp 97.8 F 06/13/23 16:00 Pulse 58 L 06/13/23 16:00 Resp 16 06/13/23 16:00 BP 139/94 06/13/23 16:00 Pulse Ox 100 06/13/23 16:00 O2 Del Method Room Air 06/13/23 03:24 Discharge Plan Discharge Patient Disposition: Home Condition: Stable Prescriptions: New ciprofloxacin HCl [Cipro] 500 mg tablet 500 mg PO BID 3 Days Qty: 6 0RF metoclopramide HCl 5 mg tablet 5 mg PO DAILY 7 Days Qty: 21 0RF ondansetron 4 mg tablet,disintegrating 4 mg PO Q8H PRN (Reason: nausea and vomiting) 5 Days Qty: 15 0RF Continued Allergy 25 mg Tablet 25 mg PO TID PRN (Reason: Allergic Symptoms) sucralfate [Carafate] 1 gram tablet 1 g PO TID 14 Days Qty: 42 0RF potassium chloride 20 mEq tablet extended release 20 meq PO BID Qty: 14 0RF pantoprazole [Protonix] 40 mg tablet,delayed release (DR/EC) 40 mg PO DAILY 28 Days Qty: 28 0RF lorazepam [Ativan] 2 mg tablet 2 mg PO Q6H PRN (Reason: nausea and vomiting) Qty: 14 0RF olanzapine 10 mg tablet 10 mg PO BID Qty: 14 0RF Discharge Orders: Discharge Order (Routine); Ordered 06/13/23 Ordered By: Violet Novak Referrals: Bishop Naqvi DO [Primary Care Provider] - 4-7 days Discharge Diet: Advance as tolerated Discharge Activity: Resume usual activity Patient Instructions: Opioid Safety Discharge Attestations Time Spent in Discharge Care*: greater than 30 min Quality Metrics Clinical Quality Measures [ No reported AMI, CVA or VTE this stay] Coding Level of Care Code Acute Code for Chg Fwd Diagnoses Cannabinoid hyperemesis syndrome R11.2; F12.90 Hypokalemia E87.6 Dehydration E86.0 Intractable nausea and vomiting R11.2
[2023-06-14 21:49] LABS: Chlamydia Trachomatis RNA TMA NOT DETECTED (NOT DETECTED); Neisseria Gonorrhoeae RNA, TMA NOT DETECTED (NOT DETECTED)
== END 2023-06-13 18:00 | disposition home or self-care (01) ==
LOC: ER 22:19 → MEDSURG 06-13 06:41
PROVIDERS: Admitting Provider Family Medicine; Emergency Provider Physician Assistant; PCP Family Medicine; Visit Provider Student in an Organized Health Care Education/Training Program
DX: R11.2 Nausea with vomiting, unspecified (principal); F12.90 Cannabis use, unspecified, uncomplicated; E87.6 Hypokalemia; E86.0 Dehydration; F17.210 Nicotine dependence, cigarettes, uncomplicated
CPT/HCPCS: 36415; 74177; 80053; 80061; 80306; 81001; 83036; 83605; 83690; 83735; 84145; 84443; 85025; 86140; 87040; 87086; 87491; 87591; 96361; 96372; 96374; 96375; 96376; 99285; G0378; J0696; J1630; J1650; J2060; J2270; J2405; J2765; J7030; Q9967

== ENCOUNTER 2023-07-23 22:28 | Emergency (ER) | payer OTHER, SELFPAY ==
[2023-07-23 22:35] VITALS: BP 131/88; PULSE 96; RESP 20; TEMP 36.7; O2SAT 97; BMI 20.8
--- NOTE | 2023-07-24 00:23 | XRR_ITS ---
PROCEDURE INFORMATION: Exam: XR Chest Exam date and time: 07/24/2023 12:40 AM Age: 38 years old Clinical indication: Chest pressure; Prior surgery; Surgery date: 6+ months; Patient HX: Epigastric pain; Additional info: Epigastric pain vomiting TECHNIQUE: Imaging protocol: Radiologic exam of the chest. Views: 1 view. COMPARISON: CR XR chest 1V portable [id number] 03/16/2023 6:26 AM FINDINGS: Lungs: Lungs are clear. Pleural spaces: No pleural effusion. No pneumothorax. Heart/Mediastinum: Mild enlargement of the cardiac silhouette. Normal mediastinal contours. Bones/joints: No acute osseous abnormality. XR/XR chest 1V portable [id number] IMPRESSION: Mild enlargement of the cardiac silhouette from prior, recommend correlation with echocardiogram.
[2023-07-24] MEDS: lidocaine 2% viscous 15 ML, aluminum-mag hydrox-simethicon 30 ML, sucralfate oral liq 1 GM PO (00:35)
[2023-07-24] MEDS: LORazepam 2 mg/mL INJ 1 mL 1 MG IVP (00:35)
[2023-07-24 00:36] LABS: Basophils % 0.3 %; Lymphocytes # 1.4 10^3/uL (0.8-4.8); Lymphocytes % 10.6 %; Mean Corpuscular HGB Conc 33.7 g/dL (30-55); Mean Corpuscular Hemoglobin 28.3 pg (27-33); Mean Corpuscular Volume 83.9 fl (82-101); Mean Platelet Volume 9.8 fL (7.4-10.4); Monocytes # 1.2 10^3/uL (0.2-0.9); Monocytes % 8.7 %; Neutrophils # 10.62 10^3/uL (1.8-7.7); Neutrophils % 79.9 %; Nucleated Red Blood Cells % 0 %; Platelet Count 272 10^3/cmm (157-399); Red Blood Count 6.08 10^6/uL (3.85-5.65); Red Cell Distribution Width 17.3 % (12.1-15.1); White Blood Count 13.27 10^3/uL (3.29-11.43)
[2023-07-24] MEDS: sodium chloride 0.9% 1,000 ML 999 ML IV (00:37)
[2023-07-24] MEDS: haloperidol inj 5 mg/mL INJ 1 mL IVP (00:37)
[2023-07-24 00:44] VITALS: BP 153/99; PULSE 50; RESP 16; O2SAT 95
--- NOTE | 2023-07-24 00:45 | ECG_ITS ---
[facility] Test Date: 2023-07-23 Pat Name: Wilfrid Carlin Department: Room: Gender: Male Manager Steel: : 1985 Requested By: Sekou Negrete Order Number: [id number] Adalgisa MD: Chinmay Soliz M.D. Measurements Intervals [place] Rate: 76 P: 54 MT: 124 QRS: 99 QRSD: 110 T: 73 QT: 376 QTc: 424 Interpretive Statements SINUS RHYTHM WITH OCCASIONAL SUPRAVENTRICULAR PREMATURE COMPLEXES BORDERLINE RIGHT AXIS DEVIATION [QRS AXIS > 90] Compared to ECG 06/09/2023 08:23:25 Sinus bradycardia no longer present Intraventricular conduction delay no longer present Electronically Signed On 07-25-2023 22:56:05 CDT by Chinmay Soliz M.D. [email or web address]
[2023-07-24 01:03] LABS: Alanine Aminotransferase 9 U/L (0-41); Albumin Level 5.1 g/dL (3.5-5.2); Alkaline Phosphatase 125 U/L (40-130); Anion Gap 17.4 (5-19); Aspartate Amino Transferase 15 U/L (0-40); Blood Urea Nitrogen 10 mg/dL (6-20); Calcium 10.2 mg/dL (8.5-10.5); Carbon Dioxide 24 mmol/L (22-29); Chloride 100 mmol/L (98-107); Globulin 3.1 g/dL (1.3-4.6); Glomerular Filtration Rate 84.5 mL/min (90-130); Glucose 148 mg/dL (65-115); Lipase 12 U/L (13-60); Osmolality Calculated 288 mOsm/kg (285-295); Potassium 3.4 mmol/L (3.5-5.1); Sodium 138 mmol/L (136-145); Total Bilirubin 1.8 mg/dL (0.15-1.2); Total Protein 8.2 g/dL (6.6-8.7)
--- NOTE | 2023-07-24 01:32 | W.ED.ABDPA2 ---
HPI - Abdominal Pain General: Chief Complaint: Abdominal Pain Stated Complaint: cp Time Seen by Provider: 07/24/23 00:03 History of Present Illness: 38-year-old male who was here twice last month with abdominal discomfort and vomiting. He presents today with abdominal discomfort, burning in his epigastrium, and multiple episodes of vomiting. This started night he says. No fever. MD elicited complaint: abdominal pain Associated Symptoms: Reports chills, nausea and vomiting; Denies diarrhea, fever(s) and hematochezia Review of Systems Const: Reports: chills; Denies: fever(s) or body aches Eyes: Denies: change in vision Card: Denies: palpitations Resp: Denies: dyspnea, productive cough, non-productive cough or wheezing GI: Reports: abdominal pain, nausea and vomiting; Denies: diarrhea or hematochezia Skin/Breast: Denies: rash Neuro: Denies: headache(s), weakness in extremities, dizziness or confusion PFSH ED PFSH: Medical History Abdominal pain Cannabinoid hyperemesis syndrome GERD without esophagitis Surgical History History of colonoscopy 15 years History of esophagogastroduodenoscopy (04/08/22) S/P gastric surgery patient not sure of details but for bleeding - done laparoscopic Social History Smoking and tobacco status: current every day smoker cigarettes Packs smoked per day: 0.5 Alcohol intake: current Alcohol intake frequency: few times a week Substance/Drug Use: current Substance/Drug use frequency: few times a month Physical Exam Const: COMMON NORMALS: no acute distress GENERAL APPEARANCE: in distress and anxious NUTRITIONAL APPEARANCE: thin HENMT: COMMON NORMALS: normocephalic, atraumatic and Normal external nose present HEAD & SCALP: normocephalic and atraumatic FACE & SINUS: normal facial exam and face symmetric NOSE: Normal external nose present Eye: COMMON NORMALS: Equal, round and reactive pupils present and EOMs intact bilaterally PUPIL: Yes Equal, round and reactive pupils present Neck/C-Spine: GENERAL: Yes trachea midline Chest: CHEST: Yes Symmetrical chest wall rise Resp: COMMON NORMALS: normal respiratory effort, No retractions, No use of accessory muscles and clear to auscultation bilaterally AUSCULTATION: clear to auscultation bilaterally Cardio: COMMON NORMALS: regular rate and regular rhythm RATE: regular rate RHYTHM: regular rhythm GI: COMMON NORMALS: Normal to inspection, nondistended, normoactive bowel sounds present PALPATION: Yes Tenderness to palpation present (GI) (Epigastric) Extremity: COMMON NORMALS: no pedal edema Neuro: MARLIN COMA SCALE: document GCS findings Marlin coma scale eye opening: Spontaneous Marlin coma scale verbal response: Orientated [place] coma scale motor response: Obey commands [place] coma scale total score: 15 SENSORY EXAM: Yes extremities (intact) Psych: COMMON NORMALS: speech normal SPEECH: Yes normal speech Skin: COMMON NORMALS: no rashes or lesions noted GENERAL SKIN EXAM: no rashes or lesions noted Course Vital Signs: Vital signs: Vital Signs Temperature 98.0 F 07/23/23 22:35 Pulse Rate 68 07/24/23 01:52 Respiratory Rate 22 H 07/24/23 01:52 Blood Pressure 120/72 07/24/23 01:52 Pulse Oximetry 95 07/24/23 01:52 MDM - Abdominal Pain Medical Decision Making Symptoms are resolved after administration of Haldol and Ativan for nausea and epigastric pain. He is given a GI cocktail as well. His white blood cell count is 13.2. Hemoglobin is 17, likely mild hemoconcentration. Potassium is 3.4. Creatinine is 1. The patient CRP is 3. Lipase is 12. Laboratory is otherwise not remarkable. He had CTs on his last visit with similar symptoms. They were nonacute. With resolution of symptoms, we will discharge. This is likely hyperemesis type illness as well as prior. We will have him take chlorpromazine scheduled for the next 36 hours to avoid symptoms, and then as needed following. Lab Data 07/24/23 00:29 07/24/23 00:29 Labs/Radiology: Radiology Impressions Chest X-Ray 07/24/23 00:23 IMPRESSION: Mild enlargement of the cardiac silhouette from prior, recommend correlation with echocardiogram. Laboratory Results WBC 13.27 10^3/uL (3.29-11.43) H 07/24/23 00:29 RBC 6.08 10^6/uL (3.85-5.65) H 07/24/23 00:29 Hgb 17.20 g/dL (11.27-16.99) H 07/24/23 00: Hct 51.0 % (37-53) 07/24/23 00: MCV 83.9 fl (82-101) 07/24/23 00: MCH 28.3 pg (27-33) 07/24/23 00: MCHC 33.7 g/dL (30-55) 07/24/23 00: RDW 17.3 % (12.1-15.1) H 07/24/23 00:29 Plt Count 272 10^3/cmm (157-399) 07/24/23 00: MPV 9.8 fL (7.4-10.4) 07/24/23 00: Neut % (Auto) 79.9 % 07/24/23 00: Lymph % (Auto) 10.6 % 07/24/23 00: [place] % (Auto) 8.7 % 07/24/23 00: Eos % (Auto) 0.0 % 07/24/23 00: Baso % (Auto) 0.3 % 07/24/23 00:29 Neut # (Auto) 10.62 10^3/uL (1.8-7.7) H 07/24/23 00: Lymph # (Auto) 1.4 10^3/uL (0.8-4.8) 07/24/23 00: [place] # (Auto) 1.2 10^3/uL (0.2-0.9) H 07/24/23 00: Eos # (Auto) 0.0 10^3/uL (0.0-0.8) 07/24/23 00:29 Baso # (Auto) 0.0 10^3/uL (0.0-0.1) 07/24/23 00: Nucleated RBC % (auto) 0 % 07/24/23 00: Nucleated RBCs # 0.0 /100WBC 07/24/23 00: Sodium 138 mmol/L (136-145) 07/24/23 00: Potassium 3.4 mmol/L (3.5-5.1) L 07/24/23 00: Chloride 100 mmol/L (98-107) 07/24/23 00:29 Carbon Dioxide 24 mmol/L (22-29) 07/24/23 00:29 Anion Gap 17.4 (5-19) 07/24/23 00:29 BUN 10 mg/dL (6-20) 07/24/23 00:29 Creatinine 1.0 mg/dL (0.7-1.2) 07/24/23 00:29 GFR Calculation 84.5 mL/min (90-130) L 07/24/23 00:29 Glucose 148 mg/dL (65-115) H 07/24/23 00:29 Calculated Osmolality 288 mOsm/kg (285-295) 07/24/23 00: Calcium 10.2 mg/dL (8.5-10.5) 07/24/23 00:29 Total Bilirubin 1.8 mg/dL (0.15-1.2) H 07/24/23 00:29 AST 15 U/L (0-40) 07/24/23: ALT 9 U/L (0-41) 07/24/23 00:29 Alkaline Phosphatase 125 U/L (40-130) 07/24/23 00:29 C-Reactive Protein 3.0 mg/L (0.0-4.9) 07/24/23 00: Total Protein 8.2 g/dL (6.6-8.7) 07/24/23 00:29 Albumin 5.1 g/dL (3.5-5.2) 07/24/23 00:29 Globulin 3.1 g/dL (1.3-4.6) 07/24/23 00:29 Lipase 12 U/L (13-60) L 07/24/23 00:29 No radiology studies performed this visit Discharge Plan Discharge Patient Disposition: Home Clinical Impression: GERD without esophagitis, Vomiting Condition: Stable Prescriptions: New chlorpromazine 25 mg tablet 25 mg PO TID Qty: 10 0RF No Action Allergy 25 mg Tablet 25 mg PO TID PRN (Reason: Allergic Symptoms) potassium chloride 20 mEq tablet extended release 20 meq PO BID Qty: 14 0RF lorazepam [Ativan] 2 mg tablet 2 mg PO Q6H PRN (Reason: nausea and vomiting) Qty: 14 0RF olanzapine 10 mg tablet 10 mg PO BID Qty: 14 0RF Discharge Orders: Discharge ED (Routine); Ordered 07/24/23 Ordered By: Sekou Ceballos Referrals: Bishop Naqvi, [Primary Care Provider] - 1-3 days Patient Instructions: Abdominal Pain (ED), Opioid Safety, Pain Management, Vomiting - Adult Activity Restrictions/Additional Instructions: Take medication schedule III times daily whether nauseated or not for the first 36 hours, then as needed. Return for concerning symptoms. Coding Level of Care Code ED Pediatric Geneticist for Rafiq Montes
[2023-07-24 01:52] VITALS: BP 120/72; PULSE 68; RESP 22; O2SAT 95
== END 2023-07-24 01:53 | disposition home or self-care (01) ==
PROVIDERS: Emergency Provider Emergency Medicine; PCP Family Medicine
DX: K21.9 Gastro-esophageal reflux disease without esophagitis (principal); F17.210 Nicotine dependence, cigarettes, uncomplicated
CPT/HCPCS: 71045; 80053; 83690; 85025; 86140; 93005; 96374; 96375; 99285; J1630; J2060; J7030

== ENCOUNTER 2024-01-13 16:34 | Emergency (ER) | payer OTHER, SELFPAY ==
[2024-01-13 16:38] VITALS: BP 134/90; PULSE 68; RESP 18; TEMP 36.4; O2SAT 97
--- NOTE | 2024-01-13 17:56 | W.ED.HEATRA ---
HPI - Head Injury General: Chief complaint: Head Injury Stated complaint: hit in the head, head lac Time Seen by Provider: 01/13/24 17:39 Source: patient Mode of arrival: ambulatory Limitations: no limitations History of Present Illness: 38-year-old male states that he was sliding in a rifle in the scope and hit him in the forehead he has a laceration to the middle of his forehead is roughly 3 to 4 cm. He denies any loss of consciousness he has a mild headache denies any vomiting. Associated symptoms: Deny nausea, neck pain or vomiting Review of Systems Const: Denies: fever(s), chills, body aches or change in appetite Eyes: Denies: blurry vision ENMT: Denies: throat pain or dental pain Card: Denies: chest pain Resp: Denies: dyspnea GI: Denies: abdominal pain, nausea, vomiting or diarrhea Musc: Denies: neck pain or back pain Skin/Breast: Denies: rash Neuro: Reports: headache(s) [facility] ED PFSH: Medical History Cannabinoid hyperemesis syndrome Abdominal pain GERD without esophagitis Surgical History S/P gastric surgery patient not sure of details but for bleeding - done laparoscopic History of colonoscopy 15 years History of esophagogastroduodenoscopy (04/08/22) Social History Smoking and tobacco/nicotine status: current every day tobacco/nicotine user cigarettes Packs smoked per day: 0.5 Alcohol intake: current Alcohol intake frequency: few times a week Substance/Drug Use: current Substance/Drug use frequency: few times a month Physical Exam Const: COMMON NORMALS: no acute distress, patient oriented x3 and healthy appearing HENMT: COMMON NORMALS: normocephalic HEAD & SCALP: normocephalic OTHER: 3cm laceration to forehead Eye: COMMON NORMALS: Equal, round and reactive pupils present PUPIL: Yes Equal, round and reactive pupils present Neck/C-Spine: COMMON NORMALS: full ROM and supple Chest: COMMONS NORMALS: normal inspection of the chest Resp: COMMON NORMALS: normal respiratory effort Extremity: COMMON NORMALS: normal to inspection and full ROM Neuro: COMMON NORMALS: patient oriented x3, moves all extremities and no focal motor deficits Psych: COMMON NORMALS: mental status grossly normal, Normal thought process present and cooperative THOUGHT PROCESS: Normal thought process present Skin: COMMON NORMALS: no rashes or lesions noted and no wounds GENERAL SKIN EXAM: no rashes or lesions noted Procedures Laceration Laceration 1: Site: other (forehead) Size (cm): 3 Description: linear Depth: simple, single layer Local Anesthetic: lidocaine 1% Amount of anesthesia used (mL): 8 Pre-repair: wound explored, irrigated extensively and deep structures intact Skin layer closed with: nylon Size (cm): 5-0 Number of sutures: 5 Technique: simple, interrupted Course Vital Signs: Vital signs: Vital Signs Temperature 97.5 F L 01/13/24 16:38 Pulse Rate 68 01/13/24 16:38 Respiratory Rate 18 01/13/24 16:38 Blood Pressure 134/90 01/13/24 16:38 Pulse Oximetry 97 01/13/24 16:38 Oxygen Delivery Me thod Room Air 01/13/24 16:38 MDM - Head Injury Medcial Decision Making Patient presents here with head laceration did repair the laceration he is well-appearing here he is stable for discharge he is return in 7 days or go to his PCP for suture removal return if worsening. Medical Records I reviewed the patient's medical records. No radiology studies performed this visit Discharge Plan Discharge Patient Disposition: Home Clinical Impression: Laceration of head Qualifiers: Encounter type: initial encounter Location of open wound of head: other part of head Foreign body presence: without foreign body Qualified Code(s): S01.81XA - Laceration without foreign body of other part of head, initial encounter Condition: Stable Prescriptions: No Action Allergy 25 mg Tablet 25 mg PO TID PRN (Reason: Allergic Symptoms) chlorpromazine 25 mg tablet 25 mg PO TID Qty: 10 0RF potassium chloride 20 mEq tablet extended release 20 meq PO BID Qty: 14 0RF lorazepam [Ativan] 2 mg tablet 2 mg PO Q6H PRN (Reason: nausea and vomiting) Qty: 14 0RF olanzapine 10 mg tablet 10 mg PO BID Qty: 14 0RF Discharge Orders: Discharge ED (Routine); Ordered 01/13/24 Ordered By: Korby Rachel Referrals: Bishop Naqvi, [Primary Care Provider] - 4-7 days Discharge Diet: Advance as tolerated Discharge Activity: Resume usual activity Patient Instructions: Care For Your Stitches (ED), Laceration (ED) Coding Level of Care Code ED Camp Director for Rafiq Montes
== END 2024-01-13 18:11 | disposition home or self-care (01) ==
PROVIDERS: Emergency Provider Emergency Medicine; PCP Family Medicine
DX: S01.81XA Laceration without foreign body of other part of head, initial encounter (principal); F17.210 Nicotine dependence, cigarettes, uncomplicated; W22.8XXA Striking against or struck by other objects, initial encounter
CPT/HCPCS: 12013; 99282

== ENCOUNTER 2024-06-09 08:40 | Emergency (ER) | payer SELFPAY ==
[2024-06-09] VITALS (7 sets, daily range): BP systolic 117–164; BP diastolic 77–109; PULSE 48–74; RESP 17–24; TEMP 37; O2SAT 94–100; BMI 22.5
--- NOTE | 2024-06-09 09:09 | CT_ITS ---
WS: [id number] CT ABDOMEN AND PELVIS NONCONTRAST HISTORY: flank pain TECHNIQUE: Imaging performed through the abdomen and pelvis. Coronal and sagittal reformats are submi tted. All CT scans at [facility] use at least one of these dose optimization techniques: auto mated exposure control; mA and/or kV adjustment per patient size (includes targeted exams where dose is matched to clinical indication); or iterative reconstruction. DLP: 437.43 mGy.cm COMPARISON: 06/12/2023 Lower thorax: Lung bases are clear. Visualized heart is normal. No hiatal hernia. Liver: Marked decreased attenuation at variable attenuation throughout the liver from hepatic steatos is. Liver appears slightly enlarged also. No bile duct dilatation evident. Gallbladder: Normal gallbladder. No pericholecystic fluid or cholelithiasis. No gallbladder wall thic kening. Pancreas: Normal size and attenuation. Normal pancreatic duct. No pancreatitis or mass. Spleen: Normal. Adrenal glands: Normal. No mass. Right kidney: 2 mm nonobstructing calcification lower pole. No hydronephrosis. Left kidney: Normal size kidney with no mass or hydronephrosis. Aorta: Normal abdominal aorta, no aneurysm or atherosclerosis. No free fluid, intraperitoneal air or significant lymphadenopathy. GI tract: Nondistended stomach. No small bowel obstruction. Normal appendix. There is a tiny appendic olith in the appendix. No diverticular disease or colitis identified. Abdominal wall: Negative. No hernia. Pelvis: No free fluid or adenopathy. Nondistended bladder. Osseous structures: Unremarkable. CT/CT kidney stone [id number] IMPRESSION: 1. No acute abdominal or pelvic abnormalities are identified. Normal appendix. 2. No renal obstruction. Nonobstructing calcification RIGHT renal pelvis. 3. Mild hepatomegaly with severe hepatic steatosis.
--- NOTE | 2024-06-09 09:09 | ECG_ITS ---
[facility] Test Date: 2024-06-09 Pat Name: Wilfrid Carlin Department: Room: Gender: Male Community Program Assistant: : 1985 Requested By: Jn Rivera Order Number: [id number] Adalgisa MD: Chinmay Soliz M.D. Measurements Intervals [place] Rate: 51 P: 24 IN: 134 QRS: 89 QRSD: 113 T: 77 QT: 507 QTc: 469 Interpretive Statements SINUS BRADYCARDIA WITH MARKED SINUS ARRHYTHMIA MODERATE INTRAVENTRICULAR CONDUCTION DELAY [110+ ms QRS DURATION] PROLONGED QT INTERVAL Compared to ECG 07/23/2023 22:34:44 Intraventricular conduction delay now present Prolonged QT interval now present Sinus rhythm no longer present Electronically Signed On 06-09-2024 11:28:26 CDT by Chinmay Soliz M.D. [id number]
--- NOTE | 2024-06-09 09:10 | XR_ITS ---
WS: [id number] Portable AP upright chest, 06/09/2024 Clinical Data: dyspnea/cough Comparison: Portable chest, 07/24/2023 Findings: No nodules, masses or effusions are seen. The heart is normal. The pulmonary vascularity is not increased. No pneumonia or pneumothorax is seen. There are small radiopaque items at the gastroe sophageal junction unchanged. XR/XR chest 1V portable [id number] Impression: Negative chest.
--- NOTE | 2024-06-09 09:11 | ED_ITS ---
HPI - Abdominal Pain 2 General: Chief Complaint: Abdominal Pain Stated Complaint: abd pain Time Seen by Provider: 06/09/24 08:41 History of Present Illness: 39-year-old male presents to the emergen cy room complaining of abdominal pain. He is difficult to get a history or even examine he is continually writhing in the bed verbalizing abdominal pain and vomiting but difficult to get him to answer other questions. Patient has been seen several times before for abdominal pain hyperemesis cannabinoid syndrome. She previously had some kind of laparoscopy procedure thought to be related to his stomach but he is not able to give me any details. He denies hematemesis coffee-ground emesis hematochezia or melena denies hematuria. Associated Symptoms: Reports GI cramping, nausea and vomiting; Denies chills, dysuria and fever(s) Related Data Home Medications Medication Instructions Recorded Confirmed dicyclomine 20 mg tablet 20 mg PO DAILY PRN Abdominal 06/09/24 06/09/24 Discomfort ondansetron 4 mg disintegrating 4 mg PO TID PRN Nausea And Vomiting 06/09/24 06/09/24 tablet Previous Rx's Medication Instructions Recorded lorazepam 2 mg tablet (Ativan) 2 mg buccal TID PRN nausea and 06/09/24 vomiting #10 tabs olanzapine 10 mg disintegrating 10 mg PO TID PRN nausea and 06/09/24 tablet vomiting #14 tabs Allergies Allergy/AdvReac Type Severity Reaction Status Date / Time No Known Allergies Allergy Verified 06/16/23 11:56 Review of Systems 2 Const: Denies: fever(s) or chills Card: Denies: chest pain Resp: Denies: dyspnea GI: Reports: abdominal pain, nausea, vomiting and GI cramping : Denies: dysuria, urinary frequency or urinary urgency Musc: Denies: neck pain or back pain Skin/Breast: Denies: rash PFSH ED 2 PFSH: Medical History Cannabinoid hyperemesis syndrome Abdominal pain GERD without esophagitis Surgical History S/P gastric surgery patient not sure of details but for bleeding - done laparoscopic History of colonoscopy 15 years History of esophagogastroduodenoscopy (04/08/22) Social History Smoking and tobacco/nicotine status: current every day tobacco/nicotine user cigarettes Packs smoked per day: 0.5 Alcohol intake: current Alcohol intake frequency: few times a week Substance/Drug Use: current Substance/Drug use frequency: few times a month Physical Exam 2 Const: GENERAL APPEARANCE: cooperative ORIENTATION/CONSCIOUSNESS: Yes awake HENMT: COMMON NORMALS: normocephalic, atraumatic and hearing grossly normal bilaterally HEAD & SCALP: normocephalic and atraumatic Resp: COMMON NORMALS: normal respiratory effort, No retractions, No use of accessory muscles and clear to auscultation bilaterally AUSCULTATION: clear to auscultation bilaterally Cardio: COMMON NORMALS: regular rate, regular rhythm and No murmurs present (Cardio) RATE: regular rate RHYTHM: regular rhythm GI: COMMON NORMALS: No hepatosplenomegaly present AUSCULTATION: Yes normoactive bowel sounds PALPATION: Yes Tenderness to palpation present (GI) and Yes No hepatosplenomegaly present Extremity: COMMON NORMALS: normal to inspection, capillary refill normal, no clubbing, cyanosis or edema, no calf tenderness and no pedal edema Skin: COMMON NORMALS: no rashes or lesions noted GENERAL SKIN EXAM: no rashes or lesions noted Course 2 Vital Signs: Vital signs: Vital Signs Temperature 98.6 F 06/09/24 08:51 Pulse Rate 74 06/09/24 13:57 Respiratory Rate 17 06/09/24 13:13 Blood Pressure 123/77 06/09/24 13:57 Pulse Oximetry 97 06/09/24 13:57 Oxygen Delivery Me thod Room Air 06/09/24 08:51 MDM - Abdominal Pain Medical Decision Making Patient improved after Ativan and Haldol. He has had multiple episodes of this before. There is no leukocytosis. No significant finding on the CT no acute abdominal pathology does have hepatosteatosis. Encouraged to abstain from marijuana Lab Data 06/09/24 09:18 06/09/24 09:18 Labs/Radiology: Radiology Impressions Abdomen/Pelvis CT 06/09/24 09:09 IMPRESSION: 1. No acute abdominal or pelvic abnormalities are identified. Normal appendix. 2. No renal obstruction. Nonobstructing calcification RIGHT renal pelvis. 3. Mild hepatomegaly with severe hepatic steatosis. Chest X-Ray 06/09/24 09:10 Impression: Negative chest. Laboratory Results WBC 7.04 10^3/uL (3.29-11.43) 06/09/24 09:18 RBC 5.31 10^6/uL (3.85-5.65) 06/09/24 09:18 Hgb 16.30 g/dL (11.27-16.99) 06/09/24 09:18 Hct 47.5 % (37-53) 06/09/24 09:18 MCV 89.5 fl (82-101) 06/09/24 09:18 MCH 30.7 pg (27-33) 06/09/24 09:18 MCHC 34.3 g/dL (30-55) 06/09/24 09:18 RDW 15.7 % (12.1-15.1) H 06/09/24 09:18 Plt Count 222 10^3/cmm (157-399) 06/09/24 09:18 MPV 9.5 fL (7.4-10.4) 06/09/24 09:18 Neut % (Auto) 69.5 % 06/09/24 09:18 Lymph % (Auto) 17.6 % 06/09/24 09:18 [place] % (Auto) 9.7 % 06/09/24 09:18 Eos % (Auto) 1.8 % 06/09/24 09:18 Baso % (Auto) 1.0 % 06/09/24 09:18 Neut # (Auto) 4.89 10^3/uL (1.8-7.7) 06/09/24 09:18 Lymph # (Auto) 1.2 10^3/uL (0.8-4.8) 06/09/24 09:18 [place] # (Auto) 0.7 10^3/uL (0.2-0.9) 06/09/24 09:18 Eos # (Auto) 0.1 10^3/uL (0.0-0.8) 06/09/24 09:18 Baso # (Auto) 0.1 10^3/uL (0.0-0.1) 06/09/24 09:18 Nucleated RBC % (auto) 0 % 06/09/24 09:18 Nucleated RBCs # 0.0 /100WBC 06/09/24 09:18 Sodium 143 mmol/L (136-145) 06/09/24 09:18 Potassium 3.3 mmol/L (3.5-5.1) L 06/09/24 09:18 Chloride 106 mmol/L (98-107) 06/09/24 09:18 Carbon Dioxide 23 mmol/L (22-29) 06/09/24 09:18 Anion Gap 17.3 (5-19) 06/09/24 09:18 BUN 7 mg/dL (6-20) 06/09/24 09:18 Creatinine 0.8 mg/dL (0.7-1.2) 06/09/24 09:18 GFR Calculation 108.8 mL/min (90-130) 06/09/24 09:18 Glucose 111 mg/dL (65-115) 06/09/24 09:18 Calculated Osmolality 295 mOsm/kg (285-295) 06/09/24 09:18 Lactic Acid 1.2 mmol/L (0.5-2.2) 06/09/24 09:18 Calcium 8.8 mg/dL (8.5-10.5) 06/09/24 09:18 Total Bilirubin 0.8 mg/dL (0.15-1.2) 06/09/24 09:18 AST 38 U/L (0-40) 06/09/24 09:18 ALT 27 U/L (0-41) 06/09/24 09:18 Alkaline Phosphatase 82 U/L (40-130) 06/09/24 09:18 Total Protein 6.4 g/dL (6.6-8.7) L 06/09/24 09:18 Albumin 4.1 g/dL (3.5-5.2) 06/09/24 09:18 Globulin 2.3 g/dL (1.3-4.6) 06/09/24 09:18 Lipase 17 U/L (13-60) 06/09/24 09:18 Urine Color Dark yellow (Yellow) A 06/09/24 09:34 Urine Appearance Clear (CLEAR) 06/09/24 09:34 Urine pH >=9.0 (5-7) A 06/09/24 09:34 Ur Specific [place] 1.022 (1.005-1.030) 06/09/24 09:34 Urine Protein 1+ (Negative) A 06/09/24 09:34 Urine Glucose (UA) Negative (Normal) 06/09/24 09:34 Urine Ketones Trace (Negative) 06/09/24 09:34 Urine Blood Negative (Negative) 06/09/24 09:34 Urine Nitrate Negative (Negative) 06/09/24 09:34 Urine Bilirubin 1+ (Negative) H 06/09/24 09:34 Urine Urobilinogen 1.0 mg/dL (Negative) 06/09/24 09:34 Ur Leukocyte Esterase 1+ (Negative) A 06/09/24 09:34 Urine RBC 0-2 /hpf (0-2) 06/09/24 09:34 Urine WBC 0-5 /hpf (0-5) 06/09/24 09:34 Ur Squamous Epith Cells 0-5 /hpf (0-5) 06/09/24 09:34 Amorphous Sediment Not Reportable 06/09/24 09:34 Urine Bacteria None seen /hpf (NONE) 06/09/24 09:34 Hyaline Casts 1.21 /lpf 06/09/24 09:34 Gastric Occult Blood Negative (Negative) 06/09/24 11:20 All radiology interpretation(s) finalized by discharge Discharge Plan Discharge Patient Disposition: Home Clinical Impression: Abdominal pain, Cannabinoid hyperemesis syndrome Condition: Stable Prescriptions: New Ativan 2 mg tablet 2 mg buccal TID PRN (Reason: nausea and vomiting) Qty: 10 0RF olanzapine 10 mg tablet,disintegrating 10 mg PO TID PRN (Reason: nausea and vomiting) Qty: 14 0RF Discontinued metronidazole 500 mg tablet 500 mg PO Q8H ciprofloxacin HCl 500 mg tablet 500 mg PO BID No Action dicyclomine 20 mg tablet 20 mg PO DAILY PRN (Reason: Abdominal Discomfort) ondansetron 4 mg tablet,disintegrating 4 mg PO TID PRN (Reason: Nausea And Vomiting) Discharge Orders: Discharge ED (Routine); Ordered 06/09/24 Ordered By: Jn Horan Referrals: Bishop Naqvi DO [Primary Care Provider] - Discharge Diet: Full LIquid Discharge Activity: Increase activity as tolerated Patient Instructions: Abdominal Pain (ED), Opioid Safety, Pain Management Activity Restrictions/Additional Instructions: Thank you for choosing [facility] for your healthcare needs today. It is very important that you follow up as instructed or that you return to the Emergency Department should you have concerns or if your condition changes or worsens in any way. You were seen today for recurrence of chronic abdominal pain. Recommend that you start pantoprazole 40 mg twice a day for 10 days then once daily. Use Ativan or olanzapine as needed. Recommend that avoid use of marijuana products. Additionally avoid spicy foods carbonated beverages and red meats. Case management make arrangements for you to follow-up with general surgery for further evaluation including possible endoscopy Stand Alone Forms: Work/School Release Coding Level of Care Code ED Vessel Liner for Rafiq Montes
[2024-06-09] MEDS: ondansetron 2 mg/ML SDV 2 mL 4 MG IVP (09:32)
[2024-06-09] MEDS: morphine 4 mg/mL SDV 1 mL IVP (09:33)
[2024-06-09 09:37] LABS: Basophils # 0.1 10^3/uL (0.0-0.1); Eosinophils # 0.1 10^3/uL (0.0-0.8); Eosinophils % 1.8 %; Hematocrit 47.5 % (37-53); Lymphocytes # 1.2 10^3/uL (0.8-4.8); Lymphocytes % 17.6 %; Mean Corpuscular HGB Conc 34.3 g/dL (30-55); Mean Corpuscular Hemoglobin 30.7 pg (27-33); Mean Corpuscular Volume 89.5 fl (82-101); Mean Platelet Volume 9.5 fL (7.4-10.4); Monocytes # 0.7 10^3/uL (0.2-0.9); Monocytes % 9.7 %; Neutrophils # 4.89 10^3/uL (1.8-7.7); Neutrophils % 69.5 %; Nucleated Red Blood Cells % 0 %; Platelet Count 222 10^3/cmm (157-399); Red Blood Count 5.31 10^6/uL (3.85-5.65); Red Cell Distribution Width 15.7 % (12.1-15.1); White Blood Count 7.04 10^3/uL (3.29-11.43)
[2024-06-09 09:43] LABS: Charge for UA Resulting for Rev
[2024-06-09 09:47] LABS: Alanine Aminotransferase 27 U/L (0-41); Albumin Level 4.1 g/dL (3.5-5.2); Alkaline Phosphatase 82 U/L (40-130); Anion Gap 17.3 (5-19); Aspartate Amino Transferase 38 U/L (0-40); Blood Urea Nitrogen 7 mg/dL (6-20); Calcium 8.8 mg/dL (8.5-10.5); Carbon Dioxide 23 mmol/L (22-29); Chloride 106 mmol/L (98-107); Creatinine Clr Calc Pharmacy 149.0617; Globulin 2.3 g/dL (1.3-4.6); Glomerular Filtration Rate 108.8 mL/min (90-130); Glucose 111 mg/dL (65-115); Lipase 17 U/L (13-60); Osmolality Calculated 295 mOsm/kg (285-295); Potassium 3.3 mmol/L (3.5-5.1); Sodium 143 mmol/L (136-145); Total Bilirubin 0.8 mg/dL (0.15-1.2); Total Protein 6.4 g/dL (6.6-8.7)
[2024-06-09 09:48] LABS: Lactic Sepsis W/Reflex 1.2 mmol/L (0.5-2.2)
[2024-06-09 10:25] LABS: Bilirubin Urine 1+ (Negative); Blood Urine Negative (Negative); Glucose Urine UA Negative (Normal); Ketones Urine Trace (Negative); Leukocyte Esterase Urine 1+ (Negative); Nitrate Urine Negative (Negative); Protein Urine 1+ (Negative); Specific Gravity, Urine 1.022 (1.005-1.030); Urine Appearance Clear (CLEAR); Urine Color Dark Yellow (Yellow); pH Urine >=9.0 (5-7)
[2024-06-09 10:32] LABS: Bacteria Urine None Seen /hpf; Hyaline Casts Urine 1.21 /lpf; RBC Urine 0-2 /hpf (0-2); Squamous Epithelial Cell Urine 0-5 /hpf (0-5); WBC Urine 0-5 /hpf (0-5)
[2024-06-09 11:30] LABS: Gastricult Occult Blood Negative (Negative)
[2024-06-09 11:31] LABS: Gastricult Occult PH > 7.0 PH (1.5-3.5)
[2024-06-09] MEDS: LORazepam 2 mg/mL INJ 1 mL 1 MG IVP (12:33)
[2024-06-09] MEDS: haloperidol inj 5 mg/mL INJ 1 mL IVP (12:34)
--- NOTE | 2024-06-09 13:53 | DCPLANNER ---
messaged ortho for er f/u
== END 2024-06-09 13:58 | disposition home or self-care (01) ==
PROVIDERS: Emergency Provider Family Medicine; PCP Family Medicine
DX: R11.2 Nausea with vomiting, unspecified (principal); F12.90 Cannabis use, unspecified, uncomplicated; R10.9 Unspecified abdominal pain; F17.210 Nicotine dependence, cigarettes, uncomplicated
CPT/HCPCS: 71045; 74176; 80053; 81003; 81015; 82271; 83605; 83690; 85025; 93005; 96374; 96375; 99285; J1630; J2060; J2270; J2405

== ENCOUNTER 2024-10-13 01:38 | Emergency (ER) | payer OTHER, SELFPAY ==
[2024-10-13 01:43] VITALS: BP 122/80; PULSE 74; RESP 18; TEMP 36.6; O2SAT 96
--- NOTE | 2024-10-13 02:28 | W.ED.WOUNDLC ---
HPI - Wound/Laceration General: Chief Complaint: Wound/Laceration Stated Complaint: cut right hand Time Seen by Provider: 10/13/24 02:24 History of Present Illness: Patient presents to the ER with complaints of laceration to the right palm says recent on internal light and a blade cut him he will not elicit what the bleeding he just causes bleed. Bleeding is controlled at this time. Patient states he is not getting a tetanus shot no matter what. Related Data Home Medications Medication Instructions Recorded Confirmed dicyclomine 20 mg tablet 20 mg PO DAILY PRN Abdominal 06/09/24 06/09/24 Discomfort ondansetron 4 mg disintegrating 4 mg PO TID PRN Nausea And Vomiting 06/09/24 06/09/24 tablet Previous Rx's Medication Instructions Recorded lorazepam 2 mg tablet (Ativan) 2 mg buccal TID PRN nausea and 06/09/24 vomiting #10 tabs olanzapine 10 mg disintegrating 10 mg PO TID PRN nausea and 06/09/24 tablet vomiting #14 tabs Allergies Allergy/AdvReac Type Severity Reaction Status Date / Time No Known Allergies Allergy Verified 06/16/23 11:56 Review of Systems General: Reports: 10 or more systems reviewed and unremarkable except in HPI and below PFSH ED PFSH: Medical History Cannabinoid hyperemesis syndrome Abdominal pain GERD without esophagitis Surgical History S/P gastric surgery patient not sure of details but for bleeding - done laparoscopic History of colonoscopy 15 years History of esophagogastroduodenoscopy (04/08/22) Social History Smoking and tobacco/nicotine status: current every day tobacco/nicotine user cigarettes Packs smoked per day: 0.5 Alcohol intake: current Alcohol intake frequency: few times a week Substance/Drug Use: current Substance/Drug use frequency: few times a month Physical Exam Const: COMMON NORMALS: no acute distress, average body habitus, patient oriented x3, no limitations, healthy appearing, alert and well nourished HENMT: COMMON NORMALS: normocephalic, atraumatic, hearing grossly normal bilaterally, external ears normal, Normal external nose present and moist oral mucous membranes HEAD & SCALP: normocephalic and atraumatic NOSE: Normal external nose present EXTERNAL EAR: Yes external ears normal Neck/C-Spine: COMMON NORMALS: no JVD Chest: COMMONS NORMALS: normal inspection of the chest and normal palpation of entire chest wall Resp: COMMON NORMALS: normal respiratory effort, No retractions, No use of accessory muscles and clear to auscultation bilaterally AUSCULTATION: clear to auscultation bilaterally Cardio: COMMON NORMALS: no JVD, regular rate, regular rhythm, S1 normal heart sound present, S2 normal heart sound present, No gallops present (Cardio), No clicks present (Cardio), No murmurs present (Cardio) and No rub (Cardio) RATE: regular rate RHYTHM: regular rhythm HEART SOUNDS: S1 normal heart sound present and S2 normal heart sound present GI: COMMON NORMALS: Normal to inspection, nondistended, normoactive bowel sounds present, Soft to palpation, non-tender, No hepatosplenomegaly present and no masses PALPATION: Yes Soft to palpation and Yes No hepatosplenomegaly present Neuro: COMMON NORMALS: patient oriented x3 SENSORIUM/ORIENTATION: Yes alert Skin: NARRATIVE SKIN EXAM: 1 cm laceration to the right palm, Procedures Laceration Laceration 1: Site: hand Side (If applicable): right Size (cm): 1.0 Description: linear Depth: simple, single layer Local Anesthetic: lidocaine 1% Amount of anesthesia used (mL): 2 Pre-repair: wound explored Skin layer closed with: nylon Size (cm): 4-0 Number of sutures: 1 Technique: simple, interrupted Course Vital Signs: Vital signs: Vital Signs Temperature 98 F 10/13/24 01:43 Pulse Rate 74 10/13/24 01:43 Respiratory Rate 18 10/13/24 01:43 Blood Pressure 122/80 10/13/24 01:43 Pulse Oximetry 96 10/13/24 01:43 MDM - Wound/Laceration Medical Decision Making Patient declines to have a tetanus shot even though he does know when his last one was. Patient had 1 stitch placed which close laceration adequately. Dressing was placed patient be discharged home. Medical Records I reviewed the patient's medical records. Lab Data I reviewed the patient's lab results. No radiology studies performed this visit Discharge Plan Discharge Patient Disposition: Home Clinical Impression: Laceration Condition: Stable Prescriptions: No Action dicyclomine 20 mg tablet 20 mg PO DAILY PRN (Reason: Abdominal Discomfort) ondansetron 4 mg tablet,disintegrating 4 mg PO TID PRN (Reason: Nausea And Vomiting) Ativan 2 mg tablet 2 mg buccal TID PRN (Reason: nausea and vomiting) Qty: 10 0RF olanzapine 10 mg tablet,disintegrating 10 mg PO TID PRN (Reason: nausea and vomiting) Qty: 14 0RF Discharge Orders: Discharge ED (Routine); Ordered 10/13/24 Ordered By: Jose Pena Referrals: Bishop Naqvi DO [Primary Care Provider] - 1 week Patient Instructions: Laceration (ED) Activity Restrictions/Additional Instructions: Please keep the area clean and dry, change dressings as needed, please follow-up with your family practice physician, urgent care or the ER in 7 days for reevaluation and possible suture removal. Coding Level of Care Code ED Flea Market Seller for Rafiq Montes
[2024-10-13] MEDS: lidocaine 1% 10 ML INJ XX (03:00)
--- NOTE | 2024-10-13 03:07 | PC.NURSE ---
0214: Patient refusing vital signs at this time. Dr. Pena notified with no new orders.
== END 2024-10-13 03:19 | disposition home or self-care (01) ==
PROVIDERS: Emergency Provider Emergency Medicine; PCP Family Medicine
DX: S61.411A Laceration without foreign body of right hand, initial encounter (principal); F17.210 Nicotine dependence, cigarettes, uncomplicated; X58.XXXA Exposure to other specified factors, initial encounter
CPT/HCPCS: 12001; 99283

== ENCOUNTER 2025-05-30 21:04 | Emergency (ER) | payer OTHER, SELFPAY ==
--- OUTSIDE RECORDS SUMMARY | 2024-02-11 06:20 | XMS_ITS ---
Author Organization [employer] Address [address] [place] [address] Care Team Providers Care Loan And Credit Manager Name Role Phone Td Galdamez MD Primary Care Provider Unavailab GREGORY oRb Unavailable [phone] Antelmo Guzman MD Unavailable Unavailable BLANCA NUNO Unavailable [phone] REASON FOR VISIT 3 mo w/ ua/pvr/ipss [...] confirmed Encounters Encounter Location Date Provider Diagnosis [employer] [address] [place] [address] 02/11/2024 BLANCA NUNO Benign localized hyperplasia of [...] Notes * Concepcion CARLINOB:1985 (40 yo M)Acc No.[id number]:02/11/2024 Progress Notes Patient: Wilfrid BETANCOURT Provider: RADHA Schumacher :1985 A ge:38 Y S ex:Male Date:02/11/2024 Address:[address] [place], [place] [id number] Pcp:Td Galdamez MD Subjective: * Chief Complaints: [...] and epididymitis, treated with abx in 06/2023. MLAIA on 07/07/23, was normal. PSA 0.43 on [...] Electronic signature of BLANCA NUNO APRN on 05/30/2025 at 11:08 PM CDT Sign off status: Pending * Provider: Brando Nuno APRN-[facility] Date: 02/11/2024 Generated for Bakari sampson/Sara/Sirishaitting on: 0 05/30/2025 11:08 PM CDT History and Physical Notes * [...]
[2025-05-30 21:07] VITALS: BP 121/80; PULSE 80; RESP 18; TEMP 36.8; O2SAT 97; BMI 21.7
--- NOTE | 2025-05-30 21:11 | XRR_ITS ---
PROCEDURE INFORMATION: Exam: XR Right Shoulder Exam date and time: 05/30/2025 10:54 PM Age: 40 years old Clinical indication: Pain; Shoulder; Right TECHNIQUE: Imaging protocol: Radiologic exam of the right shoulder. Views: 2 or more views. COMPARISON: CR XR chest 1V portable [id number] 06/09/2024 9:20 AM FINDINGS: Bones/joints: Normal. Soft tissues: Normal. XR/XR shoulder RT min 2V* [id number] IMPRESSION: No acute findings.
--- OUTSIDE RECORDS SUMMARY | 2025-05-30 23:08 | XMS_ITS | Clinical Summary ---
Author Organization [facility] Address [address] [place] [address] Phone Care Team Providers Care Manager Traffic Name Role Phone Unavailable Primary Care Provider Unavailabl e Allergies No known active allergies Social History Tobacco Use Types Packs/Day Years Used Date Smoking Tobacco: Every Day Cigarettes Smokeless Tobacco: Never Tobacco Cessation:Ready to Q uit: Not Asked; Counseling Given: Not Answered Alcohol Use Standard Drinks/Week Comments Yes 0 (1 standard drink = 0.6 oz pur e alcohol) Sex and Gender Information Value Date Recorded Sex Assigned at Not on file Legal Sex Male 5:00 PM CDT Gender Identity Not on file Sexual Orientation Not on file Last Filed Vital Signs Vital Sign Reading Time Taken Comments Blood Pressure 177/93 03/04/2024 5:57 PM CDT Pulse 88 03/04/2024 6:10 PM CDT Temperature 36.8 C (98.3 F) 03/04/2024 5:04 PM CDT Respiratory Rate 18 03/04/2024 5:04 PM CDT Oxygen Saturation 97% 03/04/2024 6:10 PM CDT Inhaled Oxygen Concentration - - Weight 86.2 kg (190 lb) 03/04/2024 5:03 PM CDT Height 190.5 cm (6' 3 ) 03/04/2024 5:03 PM CDT Body Mass Index 23.75 03/04/2024 5:03 PM CDT Plan of Treatment Health Maintenance Due Date Last Done Comments Annual Depression Screening 1998 Annual Physical 2005 Hepatitis C Antibody Screen 2005 DTap/Tdap/Td Vaccines (1 - Tdap) 2006 Flu Vaccine (#1) 06/18/2025
--- OUTSIDE RECORDS SUMMARY | 2025-05-30 23:08 | XMS_ITS | Patient Health Record ---
Author Organization [facility] Address [address] [place] [address] Care Team Providers Care Special Systems Technician Name Role Phone Td Galdamez MD Primary Care Provider Unavailab dagoberto MENDEZ GREGORY Unavailable [phone] Antelmo Guzman MD Unavailable Unavailable Allergies No Known Allergies Reason For Referral No Information Medications Medication SIG (Take, Route, Frequency, Duration) Notes Start Date End Date Status LORazepam 2 MG 1 tablet at bedtime as needed Orally Once a day Active ChlorproMAZINE Activ e Sucralfate 1 GM/10ML 10 mL 1 hour before meals and at bedtime on an empty stomach Orally Four times a day Active OLANZapine 10 MG 1 tablet Orally Once a day Active Potassium Chloride ER 20 MEQ 1 tablet wi th food Orally Once a day Active Pantoprazole Sodium 40 MG 1 tablet Orall y Once a day Active Social History Tobacco Use: Social History Observation Description Date Details (start date - stop date) Current Smoker NA - NA Tobacco Use/Smoking Question Answer Notes Tobacco use: current smoker Problems Problem Type SNOMED Code ICD Code Onset Dates Problem Status W/U Status Risk Notes Problem Urgent desire to urinate (02845922) Urgency of urination (R39.15) Active confirmed Problem Lower urinary tract symptoms due to benign prostatic hypertrophy (34857329447936) 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) Active confirmed Problem Erectile dysfunction (disorder) (907037203) ED (erectile dysfunction) (N52.9) Active confirmed Problem Family history of prostate cancer (550658706) Family history of prostate cancer (Z80.42) Active confirmed Problem Urge urinary incontinence (16803464) Urge urinary incontinence (N39.41) Active confirmed Problem Benign prostatic hypertrophy with outflow obstruction (900257224) BPH loc w urin obs/LUTS (N40.1) Active confirmed Plan Of Treatment Pending Test Test Name Order Date Bladder Scan 09/27/2023 Medical (General) History Medical History History ICD Code BPH with LUTS hx orchitis and epididymitis Surgical History Surgery Date(Month/Year) stomach surgery
--- NOTE | 2025-05-31 00:08 | W.ED.EXTPRO ---
HPI - Extremity Problem General: Chief complaint: Extremity Injury, Upper Stated complaint: right shoulder pain Time Seen by Provider: 05/30/25 23:56 Source: patient Mode of arrival: ambulatory Limitations: no limitations History of Present Illness: Patient is a 40-year-old male presents to ED today for evaluation of right shoulder pain. He states pain has bothered him over the past 4 to 5 days. No known injury or trauma. He states his pain is significantly worse with range of motion of the joint. He has not noticed any swelling. He is not complaining of numbness, tingling, loss of sensation to the extremity. He denies neck pain. No systemic symptoms. MD Complaint: joint pain Onset (ago): day(s) Pain Consistency: constant Location: right and upper extremity Radiation: none Relieving factors: immobilization Exacerbating factors: range of motion Associated symptoms: Reports no associated symptoms; Deny chest pain or fever(s) Related Data Previous Rx's ?Medication ?Instructions ?Recorded fluconazole 200 mg tablet 200 mg PO DAILY #20 tabs 02/08/25 (Diflucan) cyclobenzaprine 10 mg tablet 10 mg PO TID #14 tabs 05/31/25 ibuprofen 800 mg tablet 800 mg PO Q8H PRN pain #20 tabs 05/31/25 methylprednisolone 4 mg tablets in See Rx Instructions PO .COMPLEX 05/31/25 a dose pack (Medrol (Nael)) #21 ea Allergies Allergy/AdvReac Type Severity Reaction Status Date / Time No Known Allergies Allergy Verified 02/08/25 17:56 Review of Systems Const: Denies: fever(s) Card: Denies: chest pain Resp: Denies: dyspnea Musc: Reports: joint pain (R shoulder); Denies: neck pain, back pain, extremity pain, extremity swelling, joint swelling, joint redness, joint warmth, muscle cramps or muscle weakness Neuro: Denies: numbness in extremities, weakness in extremities or sensory changes PFS ED PFSH: Medical History Cannabinoid hyperemesis syndrome Abdominal pain GERD without esophagitis Surgical History S/P gastric surgery patient not sure of details but for bleeding - done laparoscopic History of colonoscopy 15 years History of esophagogastroduodenoscopy (04/08/22) Social History Smoking and tobacco/nicotine status: current every day tobacco/nicotine user cigarettes Packs smoked per day: 0.5 Alcohol intake: current Alcohol intake frequency: few times a week Substance/Drug Use: current Substance/Drug use frequency: few times a month Physical Exam Const: COMMON NORMALS: no acute distress, average body habitus, no limitations, healthy appearing, alert and well nourished Neck/C-Spine: COMMON NORMALS: full ROM GENERAL: Yes normal visual inspection CERVICAL SPINE: No pain with cervical ROM, No Cervical spine tenderness and No Paracervical muscle tenderness Chest: COMMONS NORMALS: normal inspection of the chest and normal palpation of entire chest wall Resp: COMMON NORMALS: normal respiratory effort and clear to auscultation bilaterally AUSCULTATION: clear to auscultation bilaterally Back/Pelvis: COMMON NORMALS: thoracic and lumbar spine normal to inspection and no thoracic nor lumbar tenderness Extremity: COMMON NORMALS: capillary refill normal and no joint enlargement GENERAL: Yes normal exam except as noted RIGHT UPPER EXTREMITY: Yes shoulder joint Right shoulder: Yes Right shoulder joint inspection exam (normal gross inspection), Yes Right shoulder joint ROM exam (limited past about 90 deg of flexion, abduction) and Yes Right shoulder joint neurovascular exam (normal) Neuro: COMMON NORMALS: moves all extremities, no focal motor deficits and no sensory deficits noted SENSORIUM/ORIENTATION: Yes alert Course Vital Signs: Vital signs: Vital Signs Temperature 98.2 F 05/30/25 21:07 Pulse Rate 80 05/30/25 21:07 Respiratory Rate 18 05/30/25 21:07 Blood Pressure 121/80 05/30/25 21:07 Pulse Oximetry 97 05/30/25 21:07 Oxygen Delivery Me thod Room Air 05/30/25 21:07 MDM - Extremity (Nontraumatic) Medical Decision Making R shoulder XR unremarkable. Patient be treated with anti-inflammatories, muscle relaxers, steroids. Will have case management set him up with primary care in case these do not help with discomfort. Other conservative therapies discussed. Lab Data Radiology Impressions Shoulder X-Ray 05/30/25 21:11 IMPRESSION: No acute findings. All radiology interpretation(s) finalized by discharge Discharge Plan Discharge Patient Disposition: Home Clinical Impression: Acute pain of right shoulder Condition: Stable Prescriptions: New cyclobenzaprine 10 mg tablet 10 mg PO TID Qty: 14 0RF ibuprofen 800 mg tablet 800 mg PO Q8H PRN (Reason: pain) Qty: 20 0RF methylprednisolone [Medrol (Nael)] 4 mg tablets,dose pack See Rx Instructions .ROUTE .COMPLEX Qty: 21 0RF Rx Instructions: orally per package directions No Action fluconazole [Diflucan] 200 mg tablet 200 mg PO DAILY Qty: 20 0RF Rx Instructions: 2 today then, then 1 daily until all taken Discharge Orders: Discharge ED (Routine); Ordered 05/31/25 Ordered By: Atiya Bah Referrals: Bishop Naqvi DO [Primary Care Provider, Family Practice] Patient Instructions: Patient Portal & Gualberto Instructions Activity Restrictions/Additional Instructions: As we discussed, we will have case management try to set you up with a primary care provider for further evaluation of your shoulder pain in case this does not improve with conservative treatments. In addition to the prescribed medications, you can also try ice and heat as well as topical lidocaine or Biofreeze. Print Language: Romansh Coding Level of Care Code ED Vice President Of Operations for Rafiq Montes
== END 2025-05-31 00:35 | disposition home or self-care (01) ==
PROVIDERS: Emergency Provider Physician Assistant; PCP Family Medicine
DX: M25.511 Pain in right shoulder (principal); F17.210 Nicotine dependence, cigarettes, uncomplicated
CPT/HCPCS: 73030; 96372; 99284; J1100; J1885

== ENCOUNTER 2025-06-06 18:37 | Outpatient (CLI) | payer OTHER, SELFPAY ==
--- NOTE | 2025-06-06 18:39 | XRR_ITS ---
PROCEDURE INFORMATION: Exam: XR Left Ribs with PA Chest Exam date and time: 06/06/2025 6:41 PM Age: 40 years old Clinical indication: Injury or trauma; Fall; Rib area, left side; Blunt trauma TECHNIQUE: Imaging protocol: Radiologic exam of the left ribs with PA chest. Views: 3 views COMPARISON: CR XR chest 1V portable [id number] 06/09/2024 9:20 AM FINDINGS: Lungs: Unremarkable. No consolidation. Pleural spaces: Unremarkable. No pleural effusion. No pneumothorax. Heart/Mediastinum: Heart size remains at the upper limit of normal. Mediastinal size is normal. Bones/joints: Acute rib fracture is not identified. XR/XR ribs LT mn 3V w CXR1V [id number] IMPRESSION: 1. No acute left rib fracture identified. 2. No acute disease in the chest.
== END 2025-06-06 18:38 | disposition home or self-care (01) ==
LOC: RAD 18:39
PROVIDERS: PCP Family Medicine; Visit Provider Registered Nurse Neonatal Intensive Care
DX: S29.9XXA Unspecified injury of thorax, initial encounter (principal); W19.XXXA Unspecified fall, initial encounter
CPT/HCPCS: 71101

== ENCOUNTER 2025-06-10 15:35 | Emergency (ER) | payer OTHER, SELFPAY ==
--- OUTSIDE RECORDS SUMMARY | 2024-02-11 06:20 | XMS_ITS ---
Author Organization [employer] Address [address] [facility] [place] [address] Care Team Providers Care Restaurant Cashier Name Role Phone Td Galdamez MD Primary Care Provider Unavailab GREGORY Rob Unavailable [phone] Antelmo Guzman MD Unavailable Unavailable BLANCA NUNO Unavailable [phone] REASON FOR VISIT 3 mo w/ ua/pvr/ipss Medications Medication SIG (Take, Route, Frequency, Duration) Notes Start Date End Date Status LORazepam 2 MG 1 tablet at bedtime as needed Orally Once a day Active ChlorproMAZINE Activ e OLANZapine 10 MG 1 tablet Orally Once a day Active Potassium Chloride ER 20 MEQ 1 tablet wi th food Orally Once a day Active Pantoprazole Sodium 40 MG 1 tablet Orall y Once a day Active Sucralfate 1 GM/10ML 10 mL 1 hour before meals and at bedtime on an empty stomach Orally Four times a day Active Problems Problem Type SNOMED Code ICD Code Onset Dates Problem Status W/U Status Risk Notes Problem 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) Active confirmed Encounters Encounter Location Date Provider Diagnosis [facility] [address] [facility] [place] [address] 02/11/2024 BLANCA NUNO Benign localized hyperplasia of prostate with urinary obstruction N40.1 ; Urgency of urination R39.15 ; Urge urinary incontinence N39.41 ; ED (erectile dysfunction) N52.9 and Family history of prostate cancer Z80.42 Assessments Encounter Date Diagnosis (ICD Code) Assessment Notes Treatment Notes Treatment Clinical Notes Section Notes 02/11/2024 Benign localized hyperplasia of prostate with urinary obstruction (ICD-10 - N40.1) 02/11/2024 Urgency of urination (ICD-10 - R39.15) 02/11/2024 Urge urinary incontinence (ICD-10 - N39.41) 02/11/2024 ED (erectile dysfunction) (ICD-10 - N52.9) 02/11/2024 Family history of prostate cancer (ICD-10 - Z80.42) Plan Of Treatment No Information Progress Notes * Concepcion CARLINOB:1985 (40 yo M)Acc No.[id number]:02/11/2024 Progress Notes Patient: Wilfrid BETANCOURT Provider: RADHA Schumacher :1985 A ge:38 Y S ex:Male Date:02/11/2024 Address:[address] [place], [place] [id number] Pcp:Td Galdamez MD Subjective: * Chief Complaints: * 1 . 3 mo w/ ua/pvr/ipss. * HPI: M igrated HPI: Mr. Carlin is a 38 year old male patient of Dr. Read referred for c/o urinary urgency. H e notes he has had urgency for years and sometimes has UUI. He deneis drinking or eating bladder irritants. He is not on any prostate medications. He also c/o ED. He has a h/o left orchitis and epididymitis, treated with abx in 06/2023. MALIA on 07/07/23, was normal. PSA 0.43 on 07/09/23. He reports a family h/o prostate cancer in a grandpa. IPSS 9, QOL 1. He was counseled on ED treatment options, he deferred at time of visit. He was also offered trial of Oxybutynin, but deferred. Patient presents today for 3 month follow up. * ROS: G eneral / Constitutional: Patient denies f ever, chills, night sweats, change in appetite. R espiratory: Patient denies c ough, shortness of breath. ? C ardiovascular: Patient denies c hest pain, dizziness, palpitations. ? G astrointestinal: Patient denies a bdominal pain, change in bowel habits, nausea, vomiting. G enitourinary: Patient denies A s documented in HPI . * Medical History: * Medications: T aking ChlorproMAZINE , Taking Sucralfate 1 GM/10ML Suspension 10 mL 1 hour before meals and at bedtime on an empty stomach Orally Four times a day , Taking Potassium Chloride ER 20 MEQ Tablet Extended Release 1 tablet with food Orally Once a day , Taking Pantoprazole Sodium 40 MG Tablet Delayed Release 1 tablet Orally Once a day , Taking OLANZapine 10 MG Tablet 1 tablet Orally Once a day , Taking LORazepam 2 MG Tablet 1 tablet at bedtime as needed Orally Once a day Objective: * Vitals: * Examination: G eneral Examination: General appearance: a lert, male, well-nourished and in no acute distress. Skin: s kin is warm and dry, with no rashes, good skin turgor and normal hair distribution. Heart: r egular rate. Lungs: s ymmetrical, non labored respirations. Abdomen: s oft, non tender, non distended. Back: n o CVA tenderness. Assessment: * Assessment: 1. B enign localized hyperplasia of prostate with urinary obstruction - N40.1 (Primary) ? 2 . U rgency of urination - R39.15 3 . U rge urinary incontinence - N39.41 4 . E D (erectile dysfunction) - N52.9 5 . F amily history of prostate cancer - Z80.42 Plan: * Treatment: * Billing Information: * Visit Code: * Procedure Codes: * Electronic signature of BLANCA NUNO APRN on 06/10/2025 at 03:37 PM CDT Sign off status: Pending * Provider: Brando Nuno APRN-[facility] Date: 02/11/2024 Generated for Bakari sampson/Sara/Sirishaitting on: 0 06/10/2025 03:37 PM CDT History and Physical Notes * HPI (History of Present Illness) Category Sub-Category Detail Notes Category Not es Migrated HPI Mr. Carlin is a 38 year old male patient of Dr. Read referred for c/o urinary urgency. He notes he has had urgency for years and sometimes has UUI. He deneis drinking or eating bladder irritants. He is not on any prostate medications. He also c/o ED. He has a h/o left orchitis and epididymitis, treated with abx in 06/2023. MALIA on 07/07/23, was normal. PSA 0.43 on 07/09/23. He reports a family h/o prostate cancer in a grandpa. IPSS 9, QOL 1. He was counseled on ED treatment options, he deferred at time of visit. He was also offered trial of Oxybutynin, but deferred. Patient presents today for 3 month follow up. Examination Category Sub-Category Detail Notes Category Not es General Examination General appearance: alert, m oscar, well-nourished and in no acute distress Heart: regular rate Lungs: symmetrical, non lab ored respirations Abdomen: soft, non tender, no n distended Skin: skin is warm and dry , with no rashes, good skin turgor and normal hair distribution Back: no CVA tenderness
--- OUTSIDE RECORDS SUMMARY | 2025-06-10 15:37 | XMS_ITS | Clinical Summary ---
Author Organization [facility] Address [address] [place] [address] Phone Care Team Providers Care Grounds Worker Name Role Phone Unavailable Primary Care Provider [...]
--- OUTSIDE RECORDS SUMMARY | 2025-06-10 15:37 | XMS_ITS | Patient Health Record ---
Author Organization [facility] Address [address] [place] [address] Care Team Providers Care Glacing Machine Tender Name Role Phone Td Galdamez MD Primary Care Provider Unavailab dagoberto MENDEZ GREGORY Unavailable [phone] Antelmo Guzman MD Unavailable Unavailable Allergies No [...] Risk Notes Problem Urgent desire to urinate (50524673) Urgency of urination (R39.15) Active confirmed Problem Lower urinary tract symptoms due to benign prostatic hypertrophy (05325604980644) 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) Active confirmed Problem Erectile dysfunction (disorder) (646506953) ED (erectile dysfunction) (N52.9) Active confirmed Problem Family history of prostate cancer (528028806) Family history of prostate cancer (Z80.42) Active confirmed Problem Urge urinary incontinence (08287495) Urge urinary incontinence (N39.41) Active confirmed Problem Benign prostatic hypertrophy with outflow obstruction (740315655) BPH loc w urin obs/LUTS (N40.1) Active confirmed Plan Of Treatment Pending Test Test Name Order Date Bladder Scan 09/27/2023 Medical (General) History Medical History History ICD Code BPH with LUTS hx orchitis and epididymitis Surgical History Surgery Date(Month/Year) stomach surgery
[2025-06-10 16:04] VITALS: BP 139/99; PULSE 83; RESP 18; TEMP 36.7; O2SAT 100
--- NOTE | 2025-06-10 17:41 | CTR_ITS ---
PROCEDURE INFORMATION: Exam: CT Chest Without Contrast; Diagnostic Exam date and time: 06/10/2025 6:00 PM Age: 40 years old Clinical indication: Left-sided; Prior surgery; Surgery date: 6+ months; Surgery type: Gastric; C/O persistent left upper lateral rib pain after a 8 foot fall off of ladder last week. ; Additional info: Left rib injury, neg plain film, still 10/10 pain TECHNIQUE: Imaging protocol: Diagnostic computed tomography of the chest without contrast. Radiation optimization: All CT scans at this facility use at least one of these dose optimization techniques: automated exposure control; mA and/or kV adjustment per patient size (includes targeted exams where dose is matched to clinical indication); or iterative reconstruction. COMPARISON: CT angio chest w abd pel w con 01/13/2023 12:34 AM RADIATION DOSE METRICS: Total DLP (mGy-cm): 304.6 FINDINGS: Lungs: Unremarkable. No consolidation. No masses. Pleural spaces: Unremarkable. No pneumothorax. No pleural effusion. Heart: Unremarkable. No cardiomegaly. No pericardial effusion. Coronary arteries: Mild coronary artery calcifications. Lymph nodes: Unremarkable. No enlarged lymph nodes. Vasculature: Unremarkable. No aortic aneurysm. Liver: Marked hepatic steatosis. Bones/joints: Mildly displaced anterolateral fracture of the left seventh rib. No segmental rib fracture. Soft tissues: Unremarkable. CT/CT chest wo con [id number] IMPRESSION: 1. Mildly displaced fracture of the left seventh rib. 2. Marked hepatic steatosis.
--- NOTE | 2025-06-10 17:50 | W.ED.GENADLT ---
HPI - General Adult General: Chief complaint: General Medical Stated complaint: left rib pain s/p fall Time Seen by Provider: 06/10/25 15:37 Source: patient Mode of arrival: ambulatory Limitations: no limitations History of Present Illness: Patient is a 40-year-old male who presents the emergency department complaining of left rib pain status post falling off of a ladder last week. States that he fell approximately 8 feet off a ladder, he was initially seen in the ER and had an x-ray that was unremarkable for any acute findings. States that he feels popping in the ribs now, rating his pain a 10/10. Notably anxious at time of examination, however vitals are unremarkable and he is not in any acute respiratory distress. States that he has only been taking ibuprofen for pain. MD complaint: Left rib pain status post fall x 1 week Onset (ago): week(s) Severity: severe Severity scale (1-10): 10 Quality: stabbing and sharp Relieving factors: none Exacerbating factors: other (Deep breathing) Associated symptoms: Deny chest pain, dyspnea, headache(s), nausea, rash, palpitations or vomiting Treatments prior to arrival: NSAID Related Data Previous Rx's ?Medication ?Instructions ?Recorded cyclobenzaprine 10 mg tablet 10 mg PO TID #14 tabs 05/31/25 ibuprofen 800 mg tablet 800 mg PO Q8H PRN pain #20 tabs 05/31/25 hydrocodone 7.5 mg-acetaminophen 1 tab PO Q8H PRN pain #15 tabs 06/10/25 325 mg tablet Allergies Allergy/AdvReac Type Severity Reaction Status Date / Time No Known Allergies Allergy Verified 06/10/25 16:08 Review of Systems General: Reports: 10 or more systems reviewed and unremarkable except in HPI and below Const: Denies: fever(s), chills or fatigue Eyes: Denies: change in vision ENMT: Denies: throat pain, ear or mastoid pain or nasal discharge Card: Denies: chest pain, palpitations, swelling of feet/ankles or lightheadedness Resp: Denies: dyspnea, productive cough or wheezing GI: Denies: abdominal pain, nausea, vomiting, diarrhea or constipation : Denies: flank pain, difficulty urinating, dysuria or urinary frequency Musc: Reports: other (Left rib pain); Denies: neck pain, back pain or joint pain Skin/Breast: Denies: rash Neuro: Denies: headache(s), numbness in extremities or weakness in extremities PFS ED PFSH: Medical History Cannabinoid hyperemesis syndrome Abdominal pain GERD without esophagitis Surgical History S/P gastric surgery patient not sure of details but for bleeding - done laparoscopic History of colonoscopy 15 years History of esophagogastroduodenoscopy (04/08/22) Social History Smoking and tobacco/nicotine status: current every day tobacco/nicotine user cigarettes Packs smoked per day: 0.5 Alcohol intake: current Alcohol intake frequency: few times a week Substance/Drug Use: current Substance/Drug use frequency: few times a month Physical Exam Const: COMMON NORMALS: patient oriented x3, alert and well nourished GENERAL APPEARANCE: anxious ORIENTATION/CONSCIOUSNESS: Yes awake OTHER: In distress from pain HENMT: COMMON NORMALS: normocephalic and atraumatic HEAD & SCALP: normocephalic and atraumatic Neck/C-Spine: COMMON NORMALS: full ROM, supple and no meningeal signs Chest: OTHER: Easily reproducible tenderness to palpation to left lateral ribs, no step-off deformity or skin tenting. Resp: COMMON NORMALS: normal respiratory effort, No use of accessory muscles and clear to auscultation bilaterally AUSCULTATION: clear to auscultation bilaterally OTHER: Equal breath sounds bilaterally Cardio: COMMON NORMALS: regular rate and regular rhythm RATE: regular rate RHYTHM: regular rhythm Extremity: COMMON NORMALS: normal to inspection, full ROM, capillary refill normal, no joint enlargement and no clubbing, cyanosis or edema Neuro: COMMON NORMALS: patient oriented x3, moves all extremities, no focal motor deficits and no sensory deficits noted SENSORIUM/ORIENTATION: Yes alert MENINGEAL SIGNS: Yes no meningeal signs Skin: COMMON NORMALS: no rashes or lesions noted GENERAL SKIN EXAM: no rashes or lesions noted Course Vital Signs: Vital signs: Vital Signs Temperature 98.0 F 06/10/25 16:04 Pulse Rate 81 06/10/25 18:38 Respiratory Rate 18 06/10/25 16:04 Blood Pressure 139/99 06/10/25 16:04 Pulse Oximetry 93 06/10/25 18:38 MDM - General Adult Medical Decision Making Patient presenting with continued left sided discomfort after a fall a week ago, where plain films were negative. With persistence of pain, ordered a CT that does confirm fracture of left seventh rib. Pain was controlled with [place]. He had equal lung sounds on exam and CT does not show any signs of pneumothorax or pleural effusion. Ultimately stable for discharge home where we will prescribe stronger pain medication and have him follow-up with primary care with any new or worsening. Return precautions given. Encouraged deep breathing and incentive spirometry. Lab Data Radiology Impressions Chest CT 06/10/25 17:41 IMPRESSION: 1. Mildly displaced fracture of the left seventh rib. 2. Marked hepatic steatosis. All radiology interpretation(s) finalized by discharge Discharge Plan Discharge Patient Disposition: Home Clinical Impression: Fracture of left seventh rib Condition: Stable Prescriptions: New hydrocodone-acetaminophen 7.5-325 mg tablet 1 tab PO Q8H PRN (Reason: pain) Qty: 15 0RF No Action cyclobenzaprine 10 mg tablet 10 mg PO TID Qty: 14 0RF ibuprofen 800 mg tablet 800 mg PO Q8H PRN (Reason: pain) Qty: 20 0RF Discharge Orders: Discharge ED (Routine); Ordered 06/10/25 Ordered By: Hugo Faulkner Referrals: Bishop Naqvi DO [Primary Care Provider, [facility]] Patient Instructions: Patient Portal & [place] Instructions Activity Restrictions/Additional Instructions: Rib Fracture Discharge Instructions Diagnosis: Single, mildly displaced left seventh rib fracture, confirmed by CT one week post-injury. No evidence of associated intrathoracic injury. Patient is hemodynamically stable and appropriate for outpatient management. Analgesia: - Multimodal pain control is essential to prevent hypoventilation, atelectasis, and pneumonia. - Hydrocodone-acetaminophen 7.5-325 m tablet orally every 8 hours as needed for moderate to severe pain. - Ibuprofen 400?600 mg: orally every 8 hours, alternating with hydrocodone-acetaminophen, as tolerated and if not contraindicated (renal dysfunction, GI bleeding, etc.). - Scheduled acetaminophen (if not exceeding daily maximum with combination product) and NSAIDs are recommended as first-line agents. - Opioids should be used at the lowest effective dose and for the shortest duration necessary, given the risk of sedation, constipation, and dependence. - Consider topical lidocaine patch for localized pain if needed and not contraindicated. - Muscle relaxants may be considered if chest wall spasm is present and not contraindicated. Pulmonary Hygiene: - Incentive spirometry: Encourage use every 1?2 hours while awake to maintain inspiratory capacity and reduce risk of atelectasis and pneumonia. - Deep breathing and coughing exercises: Instruct patient to perform regularly, splinting the chest wall with a pillow as needed for comfort. - Early mobilization: Ambulate as tolerated to reduce risk of pulmonary complications and deconditioning. Activity: - Gradually increase activity as tolerated. Avoid contact sports or activities with risk of re-injury until cleared. - Driving may resume when pain is controlled without sedating medications and full range of motion is restored. Follow-up: - Outpatient follow-up with primary care or trauma clinic within 1?2 weeks, or sooner if symptoms worsen. - Monitor for persistent pain beyond 4?6 weeks, as most patients experience significant improvement by this time. Return Precautions: - Seek immediate medical attention for: - Increasing shortness of breath, difficulty breathing, or chest pain at rest. - Fever >38?C (100.4?F), productive cough, or signs of pneumonia. - Hemoptysis (coughing up blood). - Severe or worsening pain not controlled with prescribed regimen. - Confusion, excessive drowsiness, or inability to arouse (possible opioid toxicity). - New or worsening swelling, redness, or drainage from the chest wall. - Any other concerning symptoms. Patient Education: - Emphasize the importance of pain control to facilitate deep breathing and prevent complications. - Discuss the expected course of recovery: pain typically improves over 2?6 weeks, with most patients returning to baseline by 12 weeks. - Operations [employer] Station on safe use of opioids and NSAIDs, including potential side effects and signs of overdose or GI bleeding. Special Considerations: - If pain is refractory to oral medications, or if there is evidence of respiratory compromise, consider escalation to regional anesthesia or inpatient management. - Surgical fixation is reserved for patients with flail chest, severe displacement with physiologic compromise, or intractable pain not responsive to conservative management. Summary: This patient is low risk for complications given age, single rib fracture, and absence of comorbidities. Outpatient management with multimodal analgesia, pulmonary hygiene, and early mobilization is appropriate. Clear return precautions and follow-up are provided to ensure early identification of complications. Print Language: Persian Coding Level of Care Code ED Steel Handler for Rafiq Montes
[2025-06-10] MEDS: HYDROcodone-acetaminophen 7.5-325 mg Tablet 1 TAB PO (18:11)
[2025-06-10 18:38] VITALS: PULSE 81; O2SAT 93
[2025-06-10] MEDS: HYDROcodone-acetaminophen 7.5-325 mg Tablet 2 TAB PO (20:00)
== END 2025-06-10 20:02 | disposition home or self-care (01) ==
PROVIDERS: Emergency Provider Physician Assistant; PCP Family Medicine
DX: S22.32XA Fracture of one rib, left side, initial encounter for closed fracture (principal); F17.210 Nicotine dependence, cigarettes, uncomplicated; W11.XXXA Fall on and from ladder, initial encounter
CPT/HCPCS: 71250; 99284; J9999